=== PATIENT | male | born 1945 | race Caucasian/White ===

== ENCOUNTER 2016-12-03 07:56 | Observation (INO) | payer OTHER ==
--- NOTE | 2016-12-03 09:05 | EDPHY ---
H & P Time Seen by Provider: 12/03/16 09:04 HPI/ROS: Chief complaint. Abdominal pain HPI. 71-year-old male presents emergency department with right lower quadrant abdominal pain that began last night. The patient was sleeping and had a dream that he was able to take objects in and out of his abdomen and then woke up with generalized abdominal discomfort that is now in the right lower quadrant. It hurts to move. Nausea but no vomiting. No diarrhea. No urinary symptoms though decreased urination this morning. No significant previous abdominal problems and no previous abdominal surgery. Penis and testicles are normal. No chest discomfort or trouble breathing. No fever ROS Constitutional. no fever/chills, no weakness Eyes. no problems with vision ENT. no sore throat, no nasal drainage Cardiovascular. no chest pain Respiratory. no shortness of breath, no cough Abdominal. Right lower quadrant abdominal pain with nausea . Decreased urination MS. no calf pain/swelling, no neck/back pain, no joint pain Skin. no rash Lymph. no swollen glands Neuro. no headache, no dizziness, no difficulty walking or with speech Past Medical/Surgical History: Past medical history significant for dyslipidemia, cardiac arrest, valve replacement Social History: , nonsmoker, no alcohol Smoking Status: Former smoker Physical Exam: General Appearance: Alert well-developed male moderate distress vital signs are stable Eyes: Pupils equal and round no pallor or injection. ENT, Mouth: Mucous membranes are moist. Respiratory: There are no retractions, lungs are clear to auscultation. Cardiovascular: Regular rate and rhythm. Gastrointestinal: Abdomen is soft but tender at McBurney's point in the right lower quadrant. No flank tenderness. Normal bowel sounds. No masses Neurological: Awake and alert, sensory and motor exams grossly normal. Skin: Warm and dry, no rashes. Musculoskeletal: Neck is supple nontender. Extremities symmetrical, full range of motion. Psychiatric: Patient is oriented X 3, there is no agitation. Constitutional: Initial Vital Signs Temperature (C) 36.3 C 12/03/16 07:59 Heart Rate 49 L 12/03/16 07:59 Respiratory Rate 16 12/03/16 07:59 Blood Pressure 158/92 H 12/03/16 07:59 O2 Sat (%) 97 12/03/16 07:59 O2 Delivery Mode Room Air Allergies/Adverse Reactions: No Known Allergies Allergy (Unverified 12/03/16 08:02) Home Medications: Medication Instructions Recorded Amoxicillin 2,000 mg PO AD PRN 12/03/16 Atorvastatin Calcium [Lipitor 10 10 mg PO HS 12/03/16 mg (*)] Herbals/Supplements -Info Only 1 each PO DAILY 12/03/16 Medical Decision Making - Diagnostics Imaging Results: Imaging Impressions Abdomen CT 12/03/16 09:19 Impression: 1. 6.6 mm obstructing calculus in the proximal right ureter with moderate hydronephrosis. Significant perinephric stranding around the right kidney suggesting there may have been a pelvocaliceal rupture. 2. Nonobstructive nephrolithiasis in both kidneys. Exophytic simple renal cortical cyst measuring 8.5 cm in the superior pole left kidney. 3. Possible cholelithiasis without inflammatory change around the gallbladder. 4. Two hyperenhancing lesions in the right lobe of the liver. These are nonspecific and warrant further evaluation with multiphasic CT or MRI postcontrast evaluation. 5. Large nodular prostate with a nonspecific appearance. Correlate to clinical exam and PSA. 6. Bilateral spondylolysis at L5 with grade 1 to grade 2 anterior spondylolisthesis of L5 on S1. Other multilevel degenerative change. 7. Evidence of atherosclerotic disease in the abdominal aorta without evidence for aneurysmal dilatation. Results called and discussed with Dr. Vic Madera on December 03, 2016 at 10:[address] abdomen and pelvis shows a 6.6 mm calculus at the proximal right ureter with moderate hydronephrosis and perinephric stranding. Procedures: IV normal saline with initial target 2 L. Dilaudid for pain. Zofran for nausea ED Course/Re-evaluation: Re-evaluation 10:50 a.m.--patient is improved after pain medication Patient and I discussed imaging and lab results. We discussed treatment plan including criteria for return importance of follow-up and further evaluation. He expresses understanding and agreement I consulted and discussed the case with , hospitalist, who agrees to the admission Differential Diagnosis: I considered acute appendicitis, diverticulitis, urinary tract infection including pyelonephritis, kidney stone - Data Points Laboratory Results: Laboratory Results 12/03/16 08:28 12/03/16 08:28 12/03/16 12/03/16 12/03/16 08:28 08:28 08:28 WBC 8.14 10^3/uL 10^3/uL (3.80-9.50) RBC 4.59 10^6/uL 10^6/uL (4.40-6.38) Hgb 14.5 g/dL g/dL (13.7-17.5) Hct 43.4 % % (40.0-51.0) MCV 94.6 fL fL (81.5-99.8) MCH 31.6 pg pg (27.9-34.1) MCHC 33.4 g/dL g/dL (32.4-36.7) RDW 13.1 % % (11.5-15.2) Plt Count 187 10^3/uL 10^3/uL (150-400) MPV 11.3 fL fL (8.7-11.7) Neut % (Auto) 63.3 % % (39.3-74.2) Lymph % (Auto) 28.0 % % (15.0-45.0) [place] % (Auto) 6.6 % % (4.5-13.0) Eos % (Auto) 1.0 % % (0.6-7.6) Baso % (Auto) 0.9 % % (0.3-1.7) Nucleat RBC Rel Count 0.0 % % (0.0-0.2) Absolute Neuts (auto) 5.15 10^3/uL 10^3/uL (1.70-6.50) Absolute Lymphs (auto) 2.28 10^3/uL 10^3/uL (1.00-3.00) Absolute Monos (auto) 0.54 10^3/uL 10^3/uL (0.30-0.80) Absolute Eos (auto) 0.08 10^3/uL 10^3/uL (0.03-0.40) Absolute Basos (auto) 0.07 10^3/uL 10^3/uL (0.02-0.10) Absolute Nucleated RBC 0.00 10^3/uL 10^3/uL (0-0.01) Immature Gran % 0.2 % % (0.0-1.1) Immature Gran # 0.02 10^3/uL 10^3/uL (0.00-0.10) PT 13.5 SEC SEC (12.0-15.0) INR 1.04 (0.83-1.16) APTT 26.8 SEC SEC (23.0-38.0) Sodium 143 mEq/L mEq/L (134-144) Potassium 3.6 mEq/L mEq/L (3.5-5.2) Chloride 106 mEq/L mEq/L (97-110) Carbon Dioxide 26 mEq/l mEq/l (22-31) Anion Gap 11 mEq/L mEq/L (8-16) BUN 14 mg/dL mg/dL (7-23) Creatinine 1.1 mg/dL mg/dL (0.7-1.3) Estimated GFR > 60 Glucose 110 mg/dL H mg/dL (70-100) Calcium 9.7 mg/dL mg/dL (8.5-10.4) Medications Given: Discontinued Medications Hydromorphone HCl (Dilaudid) 0.5 mg IVP EDNOW ONE Stop: 12/03/16 09:19 Last Admin: 12/03/16 09:26 Dose: 0.5 mg Sodium Chloride (Ns) 1,000 mls @ 0 mls/hr IV ONCE ONE PRN Reason: Wide Open Stop: 12/03/16 09:19 Last Admin: 12/03/16 09:26 Dose: 1,000 mls Sodium Chloride (Ns) 1,000 mls @ 0 mls/hr IV EDNOW ONE; Wide Open PRN Reason: Protocol Stop: 12/03/16 09:20 Last Admin: 12/03/16 09:59 Dose: Not Given Sodium Chloride (Ns) 1,000 mls @ 0 mls/hr IV EDNOW ONE; Wide Open PRN Reason: Protocol Stop: 12/03/16 09:20 Last Admin: 12/03/16 09:58 Dose: 1,000 mls Ketorolac Tromethamine (Toradol) 30 mg IVP EDNOW ONE Stop: 12/03/16 11:12 Last Admin: 12/03/16 11:25 Dose: 30 mg Ondansetron HCl (Zofran) 4 mg IVP EDNOW ONE Stop: 12/03/16 09:19 Last Admin: 12/03/16 09:27 Dose: 4 mg Tamsulosin HCl (Flomax) 0.4 mg PO EDNOW ONE Stop: 12/03/16 11:12 Last Admin: 12/03/16 11:25 Dose: 0.4 mg Departure - Departure Disposition: [facility] Inpatient Acute Clinical Impression: Renal colic on right side Condition: Fair
[2016-12-03] MEDS ORDERED: ONDANSETRON 4 MG/2 ML VIAL IVP ONE (09:18)
[2016-12-03] MEDS ORDERED: NS 1,000 ML IV ONE ×3 (09:18→09:19)
[2016-12-03] MEDS ORDERED: HYDROmorphONE/DILAUDID 1 MG/ML SYR IVP ONE (09:18)
[2016-12-03] MEDS ORDERED: ONDANSETRON 4 MG/2 ML VIAL ONE (09:23)
[2016-12-03 09:26] LABS: % IMMATURE GRANULYOCYTES 0.2 % (0.0-1.1); ABSOLUTE IMMATURE GRANULOCYTES 0.02 10^3/uL (0.00-0.10); ADD DIFF? NO; ADD MORPH? NO; ADD SCAN? NO; ATYPICAL LYMPHOCYTE FLAG 0 (0-99); FRAGMENT RBC FLAG 0 (0-99); HEMATOCRIT 43.4 % (40.0-51.0); HEMOGLOBIN 14.5 g/dL (13.7-17.5); LEFT SHIFT FLG 0 (0-99); LIPEMIA HEMOLYSIS FLAG 80 (0-99); MEAN CELL HEMOGLOBIN 31.6 pg (27.9-34.1); MEAN CELL HEMOGLOBIN CONCENTR. 33.4 g/dL (32.4-36.7); MEAN CELL VOLUME 94.6 fL (81.5-99.8); MEAN PLATELET VOLUME 11.3 fL (8.7-11.7); PLATELET CLUMPS FLAG 0 (0-99); PLATELET COUNT 187 10^3/uL (150-400); RED BLOOD CELL COUNT 4.59 10^6/uL (4.40-6.38); RED CELL DISTRIBUTION WIDTH 13.1 % (11.5-15.2)
[2016-12-03 09:30] LABS: ANION GAP 11 mEq/L (8-16); CALCIUM 9.7 mg/dL (8.5-10.4); CARBON DIOXIDE 26 mEq/l (22-31); CHLORIDE 106 mEq/L (97-110); CREATININE 1.1 mg/dL (0.7-1.3); GLOMERULAR FILTRATION RATE > 60; GLUCOSE 110 mg/dL (70-100); POTASSIUM 3.6 mEq/L (3.5-5.2); SODIUM 143 mEq/L (134-144)
[2016-12-03] MEDS ORDERED: IOPAMIDOL (ISOVUE-300) 100 ML BTL ONE (09:32)
[2016-12-03 10:47] LABS: INR 1.04 (0.83-1.16)
[2016-12-03 10:48] LABS: APTT 26.8 SEC (23.0-38.0)
[2016-12-03 10:49] LABS: PROTIME(PATIENT) 13.5 SEC (12.0-15.0)
[2016-12-03] MEDS ORDERED: KETOROLAC 30 MG/1 ML SDV IVP ONE (11:11)
[2016-12-03] MEDS ORDERED: TAMSULOSIN HCL 0.4 MG CAP PO ONE (11:11)
[2016-12-03] MEDS ORDERED: LORazepam 2 MG/ML INJ IVP PRN (11:23)
[2016-12-03] MEDS ORDERED: HYDROCODONE/APAP 5/325 TAB PO PRN (11:23)
[2016-12-03] MEDS ORDERED: HYDROmorphONE/DILAUDID 1 MG/ML SYR IVP PRN (11:23)
[2016-12-03] MEDS ORDERED: ACETAMINOPHEN 325 MG TAB PO PRN (11:23)
[2016-12-03] MEDS ORDERED: ONDANSETRON DISINTEGRATING 4 MG TAB PO PRN (11:23)
[2016-12-03] MEDS ORDERED: ONDANSETRON 4 MG/2 ML VIAL IVP PRN (11:23)
[2016-12-03] MEDS ORDERED: D5W 1/2 NS 1,000 ML IV SCH (11:30)
[2016-12-03 12:08] VITALS: TEMP 97.5
[2016-12-03 15:41] LABS: COLOR YELLOW; LEUKOCYTE ESTERASE,URINE NEGATIVE (NEGATIVE); NITRITE,URINE NEGATIVE (NEGATIVE)
[2016-12-03 15:49] LABS: BACTERIA TRACE /hpf (NONE SEEN); MUCUS TRACE /lpf (NONE-1+); RBC,URINE 50-182 /hpf (0-3)
[2016-12-03 16:37] VITALS: BP 94/53; PULSE 47; RESP 16; O2SAT 98
--- NOTE | 2016-12-03 16:37 | PDGENHP ---
History and Physical - Chief Complaint abdominal pain - History of Present Illness Woke up this AM with abd/flank pain. No hx kidney stones. No f/v/d. Was feeling well prior to admission and had recently seen PCP. Denies f/v/d/cp/sob currently. Says pain much improved, last pain med given in ER several hours ago. History Information - Allergies/Home Medication List Allergies/Adverse Reactions: No Known Allergies Allergy (Unverified 12/03/16 08:02) Home Medications: Amoxicillin 2,000 mg PO AD PRN 12/03/16 [Last Taken Unknown] Atorvastatin Calcium [Lipitor 10 mg (*)] 10 mg PO HS 12/03/16 [Last Taken ] Herbals/Supplements -Info Only 1 each PO DAILY 12/03/16 [Last Taken Unknown] I have personally reviewed and updated: medical history, social history, surgical history Past Medical History: artificial heart valve- bovine (he thinks aortic) - Past Medical History hyperlipidemia (just started meds last week) - Surgical History Additional surgical history: bovine heart valve - Social History Smoking Status: Former smoker Alcohol Use: Other (prev) Drug Use: None Additional social history: 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), moved to [place] to be nearer to 's parents Review of Systems ROS: 2-9 pt reviewed & negative except for what was stated in HPI & below Physical Exam Temp Pulse Resp BP Pulse Ox 97.5 F 50 L 15 109/61 96 12/03/16 12:07 12/03/16 12:07 12/03/16 12:07 12/03/16 12:07 12/03/16 12:07 Constitutional: no apparent distress, appears nourished, not in pain Eyes: PERRL, anicteric sclera, EOMI Ears, Nose, Mouth, Throat: moist mucous membranes, hearing normal, no oral mucosal ulcers Cardiovascular: regular rate and rhythym, systolic murmur (2/6), No edema Respiratory: no respiratory distress, no rales or rhonchi, clear to auscultation Gastrointestinal: normoactive bowel sounds, soft, non-tender abdomen, no palpable masses, other (no CVA tenderness), No guarding, No rebound Skin: warm, normal color, No mottled Musculoskeletal: full muscle strength, no muscle tenderness Neurologic: sensation intact bilaterally, CN II-XII Intact Psychiatric: interacting appropriately, not anxious, not encephalopathic, thought process linear Lab Data & Imaging Review 12/03/16 08:28 12/03/16 08:28 WBC 8.14 10^3/uL (3.80-9.50) 12/03/16 08:28 RBC 4.59 10^6/uL (4.40-6.38) 12/03/16 08:28 Hgb 14.5 g/dL (13.7-17.5) 12/03/16 08:28 Hct 43.4 % (40.0-51.0) 12/03/16 08:28 MCV 94.6 fL (81.5-99.8) 12/03/16 08:28 MCH 31.6 pg (27.9-34.1) 12/03/16 08:28 MCHC 33.4 g/dL (32.4-36.7) 12/03/16 08:28 RDW 13.1 % (11.5-15.2) 12/03/16 08:28 Plt Count 187 10^3/uL (150-400) 12/03/16 08:28 MPV 11.3 fL (8.7-11.7) 12/03/16 08:28 Neut % (Auto) 63.3 % (39.3-74.2) 12/03/16 08:28 Lymph % (Auto) 28.0 % (15.0-45.0) 12/03/16 08:28 [place] % (Auto) 6.6 % (4.5-13.0) 12/03/16 08:28 Eos % (Auto) 1.0 % (0.6-7.6) 12/03/16 08:28 Baso % (Auto) 0.9 % (0.3-1.7) 12/03/16 08:28 Nucleat RBC Rel Count 0.0 % (0.0-0.2) 12/03/16 08:28 Absolute Neuts (auto) 5.15 10^3/uL (1.70-6.50) 12/03/16 08:28 Absolute Lymphs (auto) 2.28 10^3/uL (1.00-3.00) 12/03/16 08:28 Absolute Monos (auto) 0.54 10^3/uL (0.30-0.80) 12/03/16 08:28 Absolute Eos (auto) 0.08 10^3/uL (0.03-0.40) 12/03/16 08:28 Absolute Basos (auto) 0.07 10^3/uL (0.02-0.10) 12/03/16 08:28 Absolute Nucleated RBC 0.00 10^3/uL (0-0.01) 12/03/16 08:28 Immature Gran % 0.2 % (0.0-1.1) 12/03/16 08:28 Immature Gran # 0.02 10^3/uL (0.00-0.10) 12/03/16 08:28 PT 13.5 SEC (12.0-15.0) 12/03/16 08:28 INR 1.04 (0.83-1.16) 12/03/16 08:28 APTT 26.8 SEC (23.0-38.0) 12/03/16 08:28 Sodium 143 mEq/L (134-144) 12/03/16 08:28 Potassium 3.6 mEq/L (3.5-5.2) 12/03/16 08:28 Chloride 106 mEq/L (97-110) 12/03/16 08:28 Carbon Dioxide 26 mEq/l (22-31) 12/03/16 08:28 Anion Gap 11 mEq/L (8-16) 12/03/16 08:28 BUN 14 mg/dL (7-23) 12/03/16 08:28 Creatinine 1.1 mg/dL (0.7-1.3) 12/03/16 08:28 Estimated GFR > 60 12/03/16 08:28 Glucose 110 mg/dL (70-100) H 12/03/16 08:28 Calcium 9.7 mg/dL (8.5-10.4) 12/03/16 08:28 Urine Color YELLOW 12/03/16 15:30 Urine Appearance HAZY 12/03/16 15:30 Urine pH 5.0 (5.0-7.5) 12/03/16 15:30 Ur Specific [place] > 1.035 (1.002-1.030) H 12/03/16 15:30 Urine Protein NEGATIVE (NEGATIVE) 12/03/16 15:30 Urine Ketones TRACE (NEGATIVE) H 12/03/16 15:30 Urine Blood 3+ (NEGATIVE) H 12/03/16 15:30 Urine Nitrate NEGATIVE (NEGATIVE) 12/03/16 15:30 Urine Bilirubin NEGATIVE (NEGATIVE) 12/03/16 15:30 Urine Urobilinogen NEGATIVE EU (0.2-1.0) 12/03/16 15:30 Ur Leukocyte Esterase NEGATIVE (NEGATIVE) 12/03/16 15:30 Urine RBC 50-182 /hpf (0-3) H 12/03/16 15:30 Urine WBC 10-15 /hpf (0-3) H 12/03/16 15:30 Ur Epithelial Cells NONE SEEN /lpf (NONE-1+) 12/03/16 15:30 Urine Bacteria TRACE /hpf (NONE SEEN) H 12/03/16 15:30 Urine Mucus TRACE /lpf (NONE-1+) 12/03/16 15:30 Urine Glucose NEGATIVE (NEGATIVE) 12/03/16 15:30 Visualized and Interpreted Chest x-ray results: Yes Assessment & Plan Assessment: 1. Renal colic on right side (Acute) -6.6 mm obstructing stone, but now asymptomatic -suspect passed -if pain OK, ambulates, eats will dc home to FU with Jona Ayoub/Mitesh/Chandan as o/p -continue flomax, IVFs -strain urine -Discussed with Dr Hawley informally 2. Enlarged nodular prostate noted on CT scan -last PSA nl 2014 added to labwork here -can't recall last SYLWIA, suggest eval with Dr Hawley as o/p (discussed with Dr Hawley informally) 3. Liver abnl noted on CT scan -gave him copy of report and revwd results/need for FU scan -FU with PCP to eval/work up as o/p 4. hyperlipidemia -continue statin 5. Hx bovine valve replacement 6. Advanced directives -says 'has some paperwork somewhere' but not sure what it says? -for now is FULL CODE< but I encouraged him to review this with his PCP and family and complete MOST form with wishes Dispo- possible home later today PCP Jona Sagastume and Mega DVT prophy-lovenox
[2016-12-03] MEDS ORDERED: TAMSULOSIN HCL 0.4 MG CAP PO SCH (16:45)
[2016-12-03] MEDS ORDERED: ATORVASTATIN CALCIUM 10 MG TAB PO SCH (21:00)
[2016-12-04] MEDS ORDERED: TAMSULOSIN HCL 0.4 MG CAP PO SCH (09:00)
[2016-12-04] MEDS ORDERED: ENOXAPARIN 40 MG/0.4 ML SYR SC SCH (09:00)
--- NOTE | 2016-12-05 17:37 | GDS ---
[f rep st] DISCHARGE SUMMARY SERVICE: [facility] Hospitalists. HISTORY AND PHYSICAL: Please see previously entered H and P by myself. ADMISSION DIAGNOSES: Obstructing nephrolithiasis, right side; enlarge nodular prostate noted on CT scan; liver abnormality noted on CT scan; hyperlipidemia; history of bovine valve replacement. DISCHARGE DIAGNOSES: Obstructing nephrolithiasis, right side, resolved; enlarge nodular prostate no aimee on CT scan; liver abnormality noted on CT scan; hyperlipidemia; history of bovine valve replacem ent. HOSPITAL COURSE: By problem list. 1. Acute right nephrolithiasis with obstruction. CT scan was done in the emergency department, glo gonzalez showed a 6.6 mm obstructing stone. He was given IV pain medications and IV fluids. He was admit aimee to the floor for observation. Within a few hours of admission, he was pain-free and no longer r equired any pain medications at all. His urine was being strained, but no stone was noted. He is g oing to be discharged home to follow up with his primary care providers, Dr. Ayoub/Mitesh, and also urologist, Dr. Hawley, as an outpatient. He should continue on Flomax and push fluids. A small pre scription for pain medication was given. Of note, he did have several nonobstructing stones noted b ilaterally on his CT scan and should discuss this with his care team as an outpatient. 2. Enlarged nodular prostate noted on CT scan. I did discuss this finding with him, and a copy of the report was given to him. A PSA was done last in 2014, but I repeated it while he was in the [facility], and it was slightly elevated at 4.13. Recommend that he seek further evaluation with Dr. Jones gonzalez as an outpatient, to which he is agreeable. 3. Abnormal liver lesions noted on CT scan. These are not well described on CT scan, and the radio logist's recommendation was for further imaging. Again, have given him a copy of this report and re viewed need for repeat imaging. He agrees to follow up with his primary provider regarding this. 4. Hyperlipidemia. Continue his home medication. 5. History of bovine valve replacement. Takes amoxicillin prophylaxis with procedures. DISCHARGE INSTRUCTIONS: I have advised him to increase fluids and watch urine output. He can fito nue to strain urine at home and should bring in any stone for evaluation. I have encouraged him to discuss advanced directives and a MOLST form with his primary care provider, as he is not sure what his legal paperwork status is. DISCHARGE MEDICATIONS: Continue routine home meds with the addition of Flomax daily. Small prescri ption of pain medication was given, but I have encouraged him to come back to the ER immediately if he has any pain similar to what he experienced today prior to coming to the emergency department. Copy requested to: Dr. Ayoub /[id number]/MODL
== END 2016-12-03 19:45 | disposition home or self-care (01) ==
LOC: INTOOBSV 11:11 → F1N 12:19
PROVIDERS: ADMIT Family Medicine; ATTEND Family Medicine
DX: N13.2 Hydronephrosis with renal and ureteral calculous obstruction (principal); K76.9 Liver disease, unspecified; N40.2 Nodular prostate without lower urinary tract symptoms; E78.5 Hyperlipidemia, unspecified; M43.07 Spondylolysis, lumbosacral region; I25.10 Atherosclerotic heart disease of native coronary artery without angina pectoris; Z95.2 Presence of prosthetic heart valve; Z86.74 Personal history of sudden cardiac arrest; Z87.891 Personal history of nicotine dependence
CPT/HCPCS: 74177; 96361; 96374; 96375; 99285; J1170; J1885; J2405; Q9967; G0103

== ENCOUNTER → 2016-12-09 | Outpatient (CLI) | payer OTHER | LOC: BMCIMAGING 09:24 | PROVIDERS: ATTEND Urology | DX: N20.1 Calculus of ureter (principal); N20.0 Calculus of kidney; I87.2 Venous insufficiency (chronic) (peripheral); M41.86 Other forms of scoliosis, lumbar region ==

== ENCOUNTER → 2016-12-24 | Outpatient (CLI) | payer OTHER | LOC: BMCIMAGING 09:57 | PROVIDERS: ATTEND Urology | DX: N20.1 Calculus of ureter (principal); N20.0 Calculus of kidney ==

== ENCOUNTER → 2017-04-27 | Outpatient (CLI) | payer OTHER ==
[~2017-04-27] MED LIST: GADOBUTROL 10 ML VIAL IVP ONE
== END ==
LOC: FIMAGING 10:01
PROVIDERS: ATTEND Psychiatry & Neurology Neurology
DX: G31.9 Degenerative disease of nervous system, unspecified (principal)
CPT/HCPCS: 70553; A9585

== ENCOUNTER → 2017-05-27 | Outpatient (CLI) | payer OTHER ==
[~2017-05-27] MED LIST changes: -GADOBUTROL 10 ML VIAL IVP ONE; +IOPAMIDOL (ISOVUE 370) 100 ML BTL IV ONE
== END ==
LOC: FIMAGING 11:18
PROVIDERS: ATTEND Psychiatry & Neurology Neurology
DX: Z13.6 Encounter for screening for cardiovascular disorders (principal)
CPT/HCPCS: 70498; Q9967

== ENCOUNTER 2017-05-29 14:52 | Inpatient (IN) | payer OTHER ==
--- NOTE | 2017-05-29 15:23 | EDPHY ---
H & P Time Seen by Provider: 05/29/17 15:05 HPI/ROS: Chief complaint. Abdominal pain HPI. 71-year-old male presents emergency department left lower quadrant abdominal pain that began this morning. It was associated with nausea and vomiting. Denies urinary symptoms. Pain is quite constant without radiation. He can't find a comfortable position. His pain is not worse with movement. No fever. Similar symptoms previously with kidney stone. No chest discomfort or trouble breathing. He reports penis and testicles are otherwise normal ROS Constitutional. no fever/chills, no weakness Eyes. no problems with vision ENT. no sore throat, no nasal drainage Cardiovascular. no chest pain Respiratory. no shortness of breath, no cough Abdominal. Left lower quadrant abdominal pain with nausea and vomiting. . no problems urinating MS. no calf pain/swelling, no neck/back pain, no joint pain Skin. no rash Lymph. no swollen glands Neuro. no headache, no dizziness, no difficulty walking or with speech Past Medical/Surgical History: Past medical history is significant for dyslipidemia, cardiac arrest, valve replacement, kidney stones, tonsillectomy Social History: , nonsmoker, no alcohol Smoking Status: Former smoker Physical Exam: General Appearance: Alert well-developed male moderate distress vital signs are stable Eyes: Pupils equal and round no pallor or injection. ENT, Mouth: Mucous membranes are moist. Respiratory: There are no retractions, lungs are clear to auscultation. Cardiovascular: Regular rate and rhythm. Gastrointestinal: Abdomen is soft and nontender, no masses, bowel sounds normal. Patient shows me left lower quadrant abdominal tenderness but it is not worse with palpation Neurological: Awake and alert, sensory and motor exams grossly normal. Skin: Warm and dry, no rashes. Musculoskeletal: Neck is supple nontender. Extremities symmetrical, full range of motion. Psychiatric: Patient is oriented X 3, there is no agitation. Constitutional: Initial Vital Signs Temperature (C) 36.5 C 05/29/17 14:55 Heart Rate 47 L 05/29/17 14:55 Respiratory Rate 18 05/29/17 14:55 O2 Sat (%) 97 05/29/17 14:55 O2 Delivery Mode Nasal Cannula O2 (L/minute) 2 Allergies/Adverse Reactions: No Known Allergies Allergy (Verified 05/29/17 14:54) Home Medications: Medication Instructions Recorded Amoxicillin 2,000 mg PO AD PRN 12/03/16 Atorvastatin Calcium [Lipitor 10 10 mg PO HS 12/03/16 mg (*)] Herbals/Supplements -Info Only 1 each PO DAILY 12/03/16 Hydrocodone/APAP 5/325 [[place] 1 - 2 tab PO Q4HRS PRN #20 tab 12/03/16 5/325 (*)] Tamsulosin HCl [Flomax 0.4 MG (*)] 0.4 mg PO DAILY #5 cap 12/03/16 Medical Decision Making - Diagnostics Imaging Results: Imaging Impressions Abdomen/Pelvis CT 05/29/17 15:38 Impression: 1. 8 mm proximal left ureteral stone with mild to moderate obstructive uropathy with prominent perinephric and periureteric stranding suggesting forniceal rupture. 2. Bilateral nephrolithiasis. 3. Sigmoid colon extending into a nonobstructed left inguinal hernia. 4. Cholelithiasis without evidence of cholecystitis. 5. Additional findings as above. Findings discussed with Dr. Vic Madera on 05/29/2017 at 16:11. Attention: This CT examination is specifically designed to evaluate patients who are clinically suspected of having acute obstructive uropathy. This examination does not use radiographic contrast, and as such, provides only a limited evaluation of the abdomen, pelvis and retroperitoneum. If there is further clinical suspicion for pathological conditions other than obstructive uropathy, a complete CT evaluation of the abdomen and pelvis utilizing intravenous and oral contrast should be considered. Noncontrast CT abdomen and pelvis shows an 8 mm proximal left ureteral stone with [id number] hydronephrosis and some perinephric stranding There is also a new left inguinal hernia Procedures: IV normal saline. Dilaudid and Toradol for pain. Cephalexin in the emergency department ED Course/Re-evaluation: Re-evaluation 4:30 p.m. and patient is much more comfortable Re-evaluation 5:05 p.m.. Patient and I discussed imaging and lab results. We discussed treatment plan including criteria for return importance of follow-up and further evaluation. He expresses understanding and agreement. I have discussed the case with Dr. Blunt for Urology. He will see The patient in consult I discussed the case with Dr. michelle RAYGOZA, hospitalist who agrees to the admission I also consulted and discussed the case with Dr. ignacio bergeron irrigation district manager for Dr. dietrich who asked me to call Dr. Blunt as well I also checked the patient for his left inguinal hernia any is a small easily reducible left inguinal hernia Differential Diagnosis: I considered kidney stone, urinary tract infection. - Data Points Laboratory Results: Laboratory Results 05/29/17 15:25 05/29/17 15:25 05/29/17 05/29/17 05/29/17 16:35 15:25 15:25 WBC 13.46 10^3/uL H 10^3/uL (3.80-9.50) RBC 4.49 10^6/uL 10^6/uL (4.40-6.38) Hgb 14.3 g/dL g/dL (13.7-17.5) Hct 42.5 % % (40.0-51.0) MCV 94.7 fL fL (81.5-99.8) MCH 31.8 pg pg (27.9-34.1) MCHC 33.6 g/dL g/dL (32.4-36.7) RDW 13.0 % % (11.5-15.2) Plt Count 209 10^3/uL 10^3/uL (150-400) MPV 10.4 fL fL (8.7-11.7) Neut % (Auto) 89.6 % H % (39.3-74.2) Lymph % (Auto) 6.0 % L % (15.0-45.0) [place] % (Auto) 3.7 % L % (4.5-13.0) Eos % (Auto) 0.1 % L % (0.6-7.6) Baso % (Auto) 0.3 % % (0.3-1.7) Nucleat RBC Rel Count 0.0 % % (0.0-0.2) Absolute Neuts (auto) 12.06 10^3/uL H 10^3/uL (1.70-6.50) Absolute Lymphs (auto) 0.81 10^3/uL L 10^3/uL (1.00-3.00) Absolute Monos (auto) 0.50 10^3/uL 10^3/uL (0.30-0.80) Absolute Eos (auto) 0.01 10^3/uL L 10^3/uL (0.03-0.40) Absolute Basos (auto) 0.04 10^3/uL 10^3/uL (0.02-0.10) Absolute Nucleated RBC 0.00 10^3/uL 10^3/uL (0-0.01) Immature Gran % 0.3 % % (0.0-1.1) Immature Gran # 0.04 10^3/uL 10^3/uL (0.00-0.10) Sodium 143 mEq/L mEq/L (135-145) Potassium 4.1 mEq/L mEq/L (3.5-5.2) Chloride 104 mEq/L mEq/L (97-110) Carbon Dioxide 24 mEq/l mEq/l (22-31) Anion Gap 15 mEq/L mEq/L (8-16) BUN 18 mg/dL mg/dL (7-23) Creatinine 1.1 mg/dL mg/dL (0.7-1.3) Estimated GFR > 60 Glucose 132 mg/dL H mg/dL (70-100) Calcium 9.6 mg/dL mg/dL (8.5-10.4) Urine Color YELLOW Urine Appearance HAZY Urine pH 6.0 (5.0-7.5) Ur Specific [place] 1.021 (1.002-1.030) Urine Protein 1+ H (NEGATIVE) Urine Ketones 1+ H (NEGATIVE) Urine Blood 3+ H (NEGATIVE) Urine Nitrate NEGATIVE (NEGATIVE) Urine Bilirubin NEGATIVE (NEGATIVE) Urine Urobilinogen NEGATIVE EU EU (0.2-1.0) Ur Leukocyte Esterase 2+ H (NEGATIVE) Urine RBC 50-182 /hpf H /hpf (0-3) Urine WBC 25-50 /hpf H /hpf (0-3) Ur Epithelial Cells NONE SEEN /lpf /lpf (NONE-1+) Urine Mucus TRACE /lpf /lpf (NONE-1+) Urine Glucose NEGATIVE (NEGATIVE) Medications Given: Discontinued Medications Hydromorphone HCl (Dilaudid) 0.5 mg IVP EDNOW ONE Stop: 05/29/17 15:38 Last Admin: 05/29/17 15:53 Dose: 0.5 mg Sodium Chloride (Ns) 1,000 mls @ 0 mls/hr IV EDNOW ONE; Wide Open PRN Reason: Protocol Stop: 05/29/17 15:38 Last Admin: 05/29/17 15:53 Dose: 1,000 mls Ketorolac Tromethamine (Toradol) 15 mg IVP EDNOW ONE Stop: 05/29/17 15:38 Last Admin: 05/29/17 15:53 Dose: 15 mg Ondansetron HCl (Zofran) 4 mg IVP EDNOW ONE Stop: 05/29/17 15:38 Last Admin: 05/29/17 15:53 Dose: 4 mg Departure - Departure Disposition: [facility] Inpatient Acute Clinical Impression: Calculus of left kidney Condition: Good Referrals: Reji Hawley MD [Primary Care Provider] - As per Instructions
[2017-05-29] MEDS ORDERED: HYDROmorphONE/DILAUDID 1 MG/ML INJ IVP ONE (15:37)
[2017-05-29] MEDS ORDERED: KETOROLAC 30 MG/1 ML SDV IVP ONE (15:37)
[2017-05-29] MEDS ORDERED: ONDANSETRON 4 MG/2 ML VIAL IVP ONE (15:37)
[2017-05-29] MEDS ORDERED: NS 1,000 ML IV ONE (15:37)
[2017-05-29 15:49] LABS: PLATELET COUNT 209 10^3/uL (150-400)
[2017-05-29] MEDS ORDERED: TAMSULOSIN HCL 0.4 MG CAP PO ONE (18:09)
[2017-05-29] MEDS ORDERED: CEPHALEXIN 500 MG CAP PO ONE (18:09)
[2017-05-29] MEDS ORDERED: ONDANSETRON DISINTEGRATING 4 MG TAB PO PRN (18:18)
[2017-05-29] MEDS ORDERED: oxyCODONE IR 5 MG TAB PO PRN (18:18)
[2017-05-29] MEDS ORDERED: HYDROmorphONE/DILAUDID 1 MG/ML INJ IVP PRN (18:18)
[2017-05-29] MEDS ORDERED: ONDANSETRON 4 MG/2 ML VIAL IVP PRN (18:18)
[2017-05-29] MEDS ORDERED: KETOROLAC 15 MG/1 ML SDV IVP PRN (18:20)
--- NOTE | 2017-05-29 20:35 | PDCONSULT ---
Report Manager Note: Full dictated consult to follow. 8mm left proximal ureteral stone, hydronephrosis, non obstructing left renal stone, forniceal rupture. Plan for ureteroscopy, laser and stent. Tentatively scheduled for 11am tomorrow. Discussed risks, benefits, and alternatives with patient and he is agreeable. Continue rocephin. NPO after MN
--- NOTE | 2017-05-29 20:39 | PDGENHP ---
History and Physical - Chief Complaint LLQ abd pain - History of Present Illness 71-year-old male presents with left lower quadrant abdominal pain that began this morning. It was associated with nausea and vomiting. Denies urinary symptoms. Pain is quite constant without radiation. No fever. Similar symptoms previously with kidney stone. In the ER found to have 8mm proximal left ureteral stone, mild to moderate obstructive uropathy, ?forniceal rupture. Dr. Lei Blunt consulted, plan is for surgical mgmt tomorrow. Still with significant discomfort, but better since getting IV meds found to have Leukocytosis and urine c/w likely infection. Start on Keflex No chest discomfort or trouble breathing. Afebrile Past Medical/Surgical History: Past medical history is significant for dyslipidemia, cardiac arrest, valve replacement, kidney stones, tonsillectomy Social History: , nonsmoker, no alcohol FMHx: non contributory Data: labs reviewed WBC: 13.[address] Abd/Pelvis: per above, also bilateral nephrolithiasis History Information - Allergies/Home Medication List Allergies/Adverse Reactions: No Known Allergies Allergy (Verified 05/29/17 14:54) Home Medications: Amoxicillin 2,000 mg PO AD PRN 12/03/16 [Last Taken Unknown] Atorvastatin Calcium [Lipitor 10 mg (*)] 10 mg PO HS 12/03/16 [Last Taken ] Herbals/Supplements -Info Only 1 each PO DAILY 12/03/16 [Last Taken Unknown] I have personally reviewed and updated: medical history, social history Past Medical History: artificial heart valve- bovine (he thinks aortic) - Past Medical History hyperlipidemia (just started meds last week) - Surgical History Additional surgical history: bovine heart valve - Social History Smoking Status: Former smoker Additional social history: 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), moved to [place] to be nearer to 's parents Review of Systems Review of Systems: ROS: 10pt was reviewed & negative except for what was stated in HPI & below Physical Exam Physical Exam: Temp Pulse Resp BP Pulse Ox 36.6 C 50 L 18 114/61 97 05/29/17 20:13 05/29/17 20:13 05/29/17 20:13 05/29/17 20:13 05/29/17 20:13 O2 (L/minute) 2 Constitutional: no apparent distress, appears nourished Eyes: PERRL, EOMI Ears, Nose, Mouth, Throat: moist mucous membranes, hearing normal, ears appear normal Cardiovascular: regular rate and rhythym, No edema Respiratory: no respiratory distress, no rales or rhonchi Gastrointestinal: normoactive bowel sounds, tenderness (llq tenderness) Skin: warm Neurologic: AAOx3 Psychiatric: interacting appropriately, not anxious, not encephalopathic, thought process linear Lymph, Heme, Immunologic: No petechiae Lab Data & Imaging Review 05/29/17 15:25 05/29/17 15:25 WBC 13.46 10^3/uL (3.80-9.50) H 05/29/17 15:25 RBC 4.49 10^6/uL (4.40-6.38) 05/29/17 15:25 Hgb 14.3 g/dL (13.7-17.5) 05/29/17 15:25 Hct 42.5 % (40.0-51.0) 05/29/17 15:25 MCV 94.7 fL (81.5-99.8) 05/29/17 15:25 MCH 31.8 pg (27.9-34.1) 05/29/17 15:25 MCHC 33.6 g/dL (32.4-36.7) 05/29/17 15:25 RDW 13.0 % (11.5-15.2) 05/29/17 15:25 Plt Count 209 10^3/uL (150-400) 05/29/17 15:25 MPV 10.4 fL (8.7-11.7) 05/29/17 15:25 Neut % (Auto) 89.6 % (39.3-74.2) H 05/29/17 15:25 Lymph % (Auto) 6.0 % (15.0-45.0) L 05/29/17 15:25 Sharp % (Auto) 3.7 % (4.5-13.0) L 05/29/17 15:25 Eos % (Auto) 0.1 % (0.6-7.6) L 05/29/17 15:25 Baso % (Auto) 0.3 % (0.3-1.7) 05/29/17 15:25 Nucleat RBC Rel Count 0.0 % (0.0-0.2) 05/29/17 15:25 Absolute Neuts (auto) 12.06 10^3/uL (1.70-6.50) H 05/29/17 15:25 Absolute Lymphs (auto) 0.81 10^3/uL (1.00-3.00) L 05/29/17 15:25 Absolute Monos (auto) 0.50 10^3/uL (0.30-0.80) 05/29/17 15:25 Absolute Eos (auto) 0.01 10^3/uL (0.03-0.40) L 05/29/17 15:25 Absolute Basos (auto) 0.04 10^3/uL (0.02-0.10) 05/29/17 15:25 Absolute Nucleated RBC 0.00 10^3/uL (0-0.01) 05/29/17 15:25 Immature Gran % 0.3 % (0.0-1.1) 05/29/17 15:25 Immature Gran # 0.04 10^3/uL (0.00-0.10) 05/29/17 15:25 Sodium 143 mEq/L (135-145) 05/29/17 15:25 Potassium 4.1 mEq/L (3.5-5.2) 05/29/17 15:25 Chloride 104 mEq/L (97-110) 05/29/17 15:25 Carbon Dioxide 24 mEq/l (22-31) 05/29/17 15:25 Anion Gap 15 mEq/L (8-16) 05/29/17 15:25 BUN 18 mg/dL (7-23) 05/29/17 15:25 Creatinine 1.1 mg/dL (0.7-1.3) 05/29/17 15:25 Estimated GFR > 60 05/29/17 15:25 Glucose 132 mg/dL (70-100) H 05/29/17 15:25 Calcium 9.6 mg/dL (8.5-10.4) 05/29/17 15:25 Urine Color YELLOW 05/29/17 16:35 Urine Appearance HAZY 05/29/17 16:35 Urine pH 6.0 (5.0-7.5) 05/29/17 16:35 Ur Specific Perry 1.021 (1.002-1.030) 05/29/17 16:35 Urine Protein 1+ (NEGATIVE) H 05/29/17 16:35 Urine Ketones 1+ (NEGATIVE) H 05/29/17 16:35 Urine Blood 3+ (NEGATIVE) H 05/29/17 16:35 Urine Nitrate NEGATIVE (NEGATIVE) 05/29/17 16:35 Urine Bilirubin NEGATIVE (NEGATIVE) 05/29/17 16:35 Urine Urobilinogen NEGATIVE EU (0.2-1.0) 05/29/17 16:35 Ur Leukocyte Esterase 2+ (NEGATIVE) H 05/29/17 16:35 Urine RBC 50-182 /hpf (0-3) H 05/29/17 16:35 Urine WBC 25-50 /hpf (0-3) H 05/29/17 16:35 Ur Epithelial Cells NONE SEEN /lpf (NONE-1+) 05/29/17 16:35 Urine Mucus TRACE /lpf (NONE-1+) 05/29/17 16:35 Urine Glucose NEGATIVE (NEGATIVE) 05/29/17 16:35 Assessment & Plan Assessment: #Acute Calculus of left kidney #Obstructive uropathy #acute UTI #Leukocytosis #acute pain Plan: -observation -will change abx to Rocephin, await cultures -Dr. Blunt to see, planned surgical mgmt tomorrow -Pain mgmt -Tamsulosin -home meds as appopriate -SCD's -Full Code
[2017-05-29] MEDS: ATORVASTATIN CALCIUM 10 MG TAB PO SCH (22:27)
[2017-05-29] MEDS: NS 1,000 ML IV SCH (22:27)
[2017-05-30 05:11] LABS: PLATELET COUNT 184 10^3/uL (150-400)
[2017-05-30] MEDS ORDERED: Herbals/Supplements -Info Only PO SCH (09:00)
[2017-05-30] MEDS: TAMSULOSIN HCL 0.4 MG CAP PO SCH (09:38)
--- NOTE | 2017-05-30 09:53 | CPEKG ---
Heart Rate: 49 RR Interval: 1224 P-R Interval: 196 QRSD Interval: 106 QT Interval: 476 QTC Interval: 430 P [place]: 59 QRS [place]: 0 T Wave [place]: -18 EKG Severity - ABNORMAL ECG - EKG Impression: SINUS BRADYCARDIA EKG Impression: PROBABLE LEFT ATRIAL ABNORMALITY EKG Impression: ABNRM R PROG, CONSIDER ASMI OR LEAD PLACEMENT EKG Impression: BORDERLINE T ABNORMALITIES, INFERIOR LEADS Electronically Signed By: Fuentes Pacheco 30-May-2017 10:05:33
--- NOTE | 2017-05-30 10:36 | PDANEPAE ---
ANE History of Present Illness 71 year old male with left ureteral stone for ureteroscopy. ANE Past Medical History - Cardiovascular History Cardiovascular History Comment: History of Cardiac Arrest. History of Valve replacement - Pulmonary History Hx Oxygen in Use at Home: No Hx Sleep Apnea: No Sleep Apnea Screening Result - Last Documented: Positive - Endocrine History Hx Diabetes: No Hypothyroid: No Hyperthyroid: No Obesity: no - Renal History Hx Renal Disorders: Yes Renal History Comment: Renal stones - Liver History Hx Hepatic Disorders: No - Neurological & Psychiatric Hx Hx Neurological and Psychiatric Disorders: No - Cancer History Hx Cancer: No - Congenital Disorder History Hx Congenital Disorders: No - GI History GERD: no - Chronic Pain History Chronic Pain: No ANE Review of Systems Review of systems is: negative Review of Systems: - Exercise capacity Exercise capacity: >=4 METS ANE Patient History - Allergies Allergies/Adverse Reactions: No Known Allergies Allergy (Verified 05/29/17 14:54) - Home Medications Home medications: home medication list seen and reviewed Home Medications: Amoxicillin 2,000 mg PO AD PRN 12/03/16 [Last Taken Unknown] Atorvastatin Calcium [Lipitor 10 mg (*)] 10 mg PO HS 12/03/16 [Last Taken ] Herbals/Supplements -Info Only 1 each PO DAILY 12/03/16 [Last Taken Unknown] - NPO status NPO Status: no food or drink >8 hours NPO Since - Liquids (Date): 05/30/17 NPO Since - Liquids (Time): 00:00 NPO Since - Solids (Date): 05/30/17 NPO Since - Solids (Time): 00:00 - Anes Hx Anes Hx: no prior problems - Smoking Hx Smoking Status: Former smoker Marijuana use: No - Alcohol Use Alcohol Use: Rarely - Family Anes Hx Family Anes Hx: neg - N/A ANE Labs/Vital Signs - Labs Result Diagrams: 05/30/17 04:35 05/30/17 04:35 - Vital Signs Vital Signs: reviewed preoperatively; see RN documention for details Blood Pressure: 100/58 Heart Rate: 52 Respiratory Rate: 16 O2 Sat (%): 94 Height: 182.88 cm Weight: 76.4 kg ANE Physical Exam - Airway Neck exam: FROM Mallampati Score: Class 2 Mouth exam: normal dental/mouth exam - Pulmonary Pulmonary: no respiratory distress - Cardiovascular Cardiovascular: regular rate and rhythym - ASA Status ASA Status: III ANE Anesthesia Plan Anesthesia Plan: GA w LMA Total IV Anesthesia: No
[2017-05-30] MEDS ORDERED: LIDOCAINE 2% JELLY 20 ML (UROJECT) ONE (10:49)
[2017-05-30] MEDS ORDERED: IOPAMIDOL (ISOVUE-M 300) 15 ML VIAL ONE (10:49)
[2017-05-30] MEDS ORDERED: LR 1,000 ML IV ONE (10:53)
[2017-05-30] MEDS ORDERED: PROPOFOL 200 MG/20 ML VIAL ONE (11:10)
[2017-05-30] MEDS ORDERED: DEXAMETHASONE 4 MG/ML VIAL ONE (11:35)
[2017-05-30] MEDS ORDERED: ROCURONIUM 50 MG/5 ML VIAL ONE ×2 (11:35→22:35)
[2017-05-30] MEDS ORDERED: ONDANSETRON 4 MG/2 ML VIAL ONE (11:35)
--- NOTE | 2017-05-30 12:11 | GCON ---
[f rep st] CONSULTATION DATE OF CONSULTATION: 05/30/2017 REQUESTING PHYSICIAN: Dr. Vic Madera. REASON FOR REQUEST: Ureteral stone. HISTORY OF PRESENT ILLNESS: The patient is a very pleasant 71-year-old gentleman who has a history o f ureteral stones with prior spontaneous passage. He has been seen by Dr. Reji Hawley in the past, w pierce I am cross-covering for for the weekend. He had a one-day onset of severe left-sided flank pain associated with some nausea and vomiting. No fever. No hematuria. He came to the emergency room wh ere a CT scan was obtained, which demonstrated a left proximal ureteral stone measuring approximately 8 mm in maximum diameter, as well as a nonobstructing left renal stone. In addition, there was evid ence of forniceal rupture. The patient states that he last had a stone in mid-2016, which he passed spontaneously. He states he has not had prior metabolic evaluation. Currently he is feeling better, has been afebrile. PAST MEDICAL HISTORY: Includes valvular disease, myocardial infarction, hyperlipidemia, kidney stone s. PAST SURGICAL HISTORY: Includes valve replacement and tonsillectomy. SOCIAL HISTORY: The patient is . No tobacco, alcohol, or drug abuse. FAMILY HISTORY: Reviewed and is noncontributory. HOME MEDICATIONS: Reviewed and summarized in the chart. Of note, the patient is not on any current anticoagulation. HOSPITAL MEDICATIONS: Reviewed, and he is on routine Rocephin. REVIEW OF SYSTEMS: Obtained, and is otherwise negative. PHYSICAL EXAMINATION: VITAL SIGNS: His temperature is 36.4, blood pressure 109/67, heart rate 55. GENERAL: He is alert and oriented x4. No apparent distress. Appears younger than his stated age. HEENT: His head is normocephalic, atraumatic. Eyes, ears, nose, and throat are within normal limits . He has no increasing respiratory effort. HEART: Regular. ABDOMEN: Soft, nontender, nondistende d. He has some mild left CVA tenderness. EXTREMITIES: No clubbing, cyanosis, or edema. NEUROLOGIC : Nonfocal. RADIOGRAPHIC STUDIES: I personally reviewed his CT scan, report, and images. They are summarized as above. LABORATORY VALUES: Reviewed and summarized in the chart. Significant for, on admission, a white blo od cell count of 13.46. Creatinine 1.4 today. IMPRESSION: 1. Left flank pain due to left proximal ureteral stone. 2. Left proximal ureteral stone. 3. Left nonobstructing renal stone. 4. Forniceal rupture. 5. Hydronephrosis due to ureteral obstruction from ureteral stone. PLAN: Given the patient's forniceal rupture, the size and location of the stone, I recommend operati ve intervention. I have discussed potential risks, benefits, and alternatives with him, which includ e but are not limited to risks of anesthesia, discomfort, bleeding, infection, inability to fully bandar ak up the stone, need for ureteral stent placement, and associated stent symptoms. In addition, I coffey ve discussed the need for removal of the stent. The patient is established with Dr. Reji Hawley and will follow up with him as an outpatient for removal. I have stressed the importance of this followu p. The patient has expressed understanding. Thank you for allowing me to participate in his care. /[id number]/MODL
[2017-05-30] MEDS ORDERED: LR 500 ML IV PRN (13:02)
[2017-05-30] MEDS ORDERED: fentaNYL 100 MCG/2 ML INJ IVP PRN ×2 (13:02→15:52)
[2017-05-30] MEDS ORDERED: epHEDrine SULFATE 10 MG/ML SYR IVP PRN (13:02)
[2017-05-30] MEDS ORDERED: NALOXONE HCL 0.4 MG/ML INJ IVP PRN ×2 (13:02→15:52)
[2017-05-30] MEDS ORDERED: ONDANSETRON 4 MG/2 ML VIAL IVP PRN (13:02)
[2017-05-30] MEDS ORDERED: PHENYLEPHRINE HCL 100 MCG/ML SYR IVP PRN (13:02)
--- NOTE | 2017-05-30 13:04 | POSTANESTH ---
Post Anesthetic Evaluation Cardiovascular Status: Normal, Stable, Similar to Pre-Op Cond Respiratory Status: Normal, Stable, Similar to Pre-op Cond. Level of Consciousness/Mental Status: Can Participate in Eval, Alert and Oriented Pain Control: Adequate, Prn Tx Ordered Nausea/Vomiting Control: Adequate, Prn Tx Ordered Complications Possibly Related to Anesthesia: None Noted
--- NOTE | 2017-05-30 13:40 | POSTOPPROG ---
Post Op Note Date of Operation: 05/30/17 Surgeon: Giovanny Blunt Anesthesia: LMA Pre-op Diagnosis: left proximal ureteral stone Post-op Diagnosis: same Procedure: left ureteroscopy laser, attempted stent Findings: stone fractured but wire access to kidney lost. unable to place stent Inf/Abcess present in the surg proc area at time of surgery?: No EBL: Minimal (10ml) Complications: Unable to place stent due to wire access loss. Specimen(s): none
--- NOTE | 2017-05-30 15:44 | HOSPPROG ---
Hospitalist Progress Note Assessment/Plan: 71 yo admitted with flank pain. He was found to have an 8mm ureteral stone with hydronephrosis. # Ureteral stone. He underwent proceedure today for stone removal and post stone removal, Urology was unable to place a stent. * Continue inpatient stay * IR to attempt stent placement or possible nephrostomy tube. * Continue IV antibiotics * will need additional midnight stay. # Valvular disease, s/p bovine valve # dyslipidemia, on statin. Subjective: Pt new to me and chart reviewed. Feeling pretty good prior to surgery on pain meds. Objective: Vital Signs Temp Pulse Resp BP Pulse Ox 36.5 C 50 L 16 120/65 94 05/30/17 15:03 05/30/17 15:03 05/30/17 15:03 05/30/17 15:03 05/30/17 15:03 Laboratory Results 05/30/17 04:35 05/30/17 04:35 05/29/17 05/30/17 05/31/17 05:59 05:59 05:59 Intake Total 1350 700 Output Total 200 Balance 1150 700 - Physical Exam Constitutional: no apparent distress, not in pain Eyes: PERRL, anicteric sclera, EOMI Ears, Nose, Mouth, Throat: moist mucous membranes, hearing normal Cardiovascular: regular rate and rhythym Respiratory: no respiratory distress, no rales or rhonchi Gastrointestinal: normoactive bowel sounds, No tenderness Genitourinary: no bladder fullness Skin: warm Neurologic: AAOx3 Psychiatric: interacting appropriately, not anxious, not encephalopathic ICD10 Worksheet Patient Problems: Problems Problem Status Onset Calculus of left kidney Acute Renal colic on right side Acute
[2017-05-30] MEDS ORDERED: ALTEPLASE 2 MG VIAL IVP PRN (15:52)
[2017-05-30] MEDS ORDERED: PROTAMINE SULFATE 50 MG/5 ML VIAL IVP PRN (15:52)
[2017-05-30] MEDS ORDERED: MIDAZOLAM 2 MG/2 ML VIAL IVP PRN ×2 (15:52→21:03)
[2017-05-30] MEDS ORDERED: GLUCAGON HCL 1 MG VIAL IVP PRN (15:52)
[2017-05-30] MEDS ORDERED: MEPERIDINE 25 MG/ML SYR IVP PRN (15:52)
[2017-05-30] MEDS ORDERED: FLUMAZENIL 0.5 MG/5 ML MDV IVP PRN (15:52)
[2017-05-30] MEDS ORDERED: HEPARIN 10,000 UNIT/10 ML MDV (1,000 UNIT/ML) IVP PRN (15:52)
[2017-05-30] MEDS ORDERED: NS 1,000 ML IV SCH (16:00)
--- NOTE | 2017-05-30 16:08 | PDMN ---
Medical Necessity Medical necessity: C/M review: est. > 2 MN LOS for eval and TX of acute ureteral stone, hydronephrosis, flank pain requiring 05/30/2017 surgery for ureteral stome removal and post stone removal urology unable to place a stent requiring planned 05/30/2017 stent or nephrostomy tube placement in IR, ongoing IV Ceftriaxone, IV fluids, IV Dilaudid, comorbid valvular disease, dyslipidemia per 05/30/2017 Hospitalist progress note.
--- NOTE | 2017-05-30 16:14 | PDPROPOC ---
Sedation Plan of Care Sedation Plan of Care: vital signs stable, mental status noted, patient educated of risks, benefits, alternatives, patient can tolerate sedation ASA Classification: ASA 3 Planned drugs: fentanyl, midazolam Mallampati Score: Class 2 Mallampati Reference Image: Patient passed 3-3-2 rule?: Yes
--- NOTE | 2017-05-30 16:36 | SOAPPROG ---
CESAR Progress Note Assessment/Plan: Assessment: Urologic fragmentation of left ureteral stone, complicated by perforation of left ureter. Lack of hydronephrosis previously, expected to continue. Large left renal cortical cyst. Anticipate challenging procedure. Plan: Percutaneous left ureteral stent. Nephrostomy if unable to place stent. +/- drainage of large cyst, as needed. 05/30/17 16:36 05/30/17 16:42 Subjective: I was asked by Dr. Blunt to perform left ureteral stent or percutaneous nephrostomy on Mr. Hinds to treat perforation of left ureter. I discussed this in detail with the patient, his , and his [id number]. They accept risks (sepsis, internal bleeding, damage to nontarget organ, allergic reaction) , and they wish to proceed today. Objective: Vital Signs Temp Pulse Resp BP Pulse Ox 36.5 C 54 L 16 111/66 92 05/30/17 16:00 05/30/17 16:00 05/30/17 16:00 05/30/17 16:00 05/30/17 16:00 CT yesterday shows no hydronephrosis. Large left renal cortical cyst may increase difficulty of placement. ICD10 Worksheet Patient Problems: Problems Problem Status Onset Calculus of left kidney Acute Renal colic on right side Acute
[2017-05-30] MEDS ORDERED: MIDAZOLAM 2 MG/2 ML VIAL ONE (16:47)
[2017-05-30] MEDS ORDERED: fentaNYL 100 MCG/2 ML INJ ONE ×2 (16:48→23:15)
--- NOTE | 2017-05-30 17:57 | PDRADPN ---
Radiology Procedure Note Date of Procedure: 05/30/17 Radiologist: Preet Cervantes Anesthesia: IV Sedation Pre-op Diagnosis: Left nephro- and ureterolithiasis, perforated left ureter Post-op Diagnosis: Same Indication: Urine leak, traumatized ureter Procedure: Percutaneous Left ureteral stent Finding(s): Perforated left ureter, decompressed collecting system, small bifid left renal pelvis. 8F X 22 cm long internal left ureteral stent, patent to bladder. Inf/Abcess present in the surg proc area at time of surgery?: No EBL: 50-100 Complications: Mild self-limited hemorrhage, VSS.
[2017-05-30] MEDS ORDERED: IOPAMIDOL (ISOVUE-300) 100 ML BTL ONE ×2 (18:09→23:48)
[2017-05-30] MEDS ORDERED: IOPAMIDOL (ISOVUE-370) 150 ML BTL IV ONE (18:09)
[2017-05-30] MEDS ORDERED: KETOROLAC 15 MG/1 ML SDV ONE (18:18)
--- NOTE | 2017-05-30 18:46 | CPEKG ---
Heart Rate: 73 RR Interval: 822 P-R Interval: 180 QRSD Interval: 102 QT Interval: 424 QTC Interval: 468 P [place]: 73 QRS [place]: -4 T Wave [place]: 64 EKG Severity - BORDERLINE ECG - EKG Impression: SINUS RHYTHM EKG Impression: PROBABLE LEFT ATRIAL ABNORMALITY Electronically Signed By: Fuentes Pacheco 31-May-2017 08:52:46
[2017-05-30] MEDS ORDERED: NOREPINEPHRINE/NS 500 ML IV SCH (19:00)
--- NOTE | 2017-05-30 19:48 | SOAPPROG ---
SOAP Progress Note Assessment/Plan: Assessment: Plan: Subjective: Brief Anesthesiology Note: Approx. 18:30 an overhead page for STAT team to PACU. On entry to PACU, patient hypotensive on monitor (NIBP = 50s/30s). Mr. Hinds known to me as I had provided him anesthesia earlier today, but patient was again in PACU following a separate procedure. Additional IV access obtained by STAT team and fluids started, but patient still hypotensive and NIBP cuff (oscillometric) experiencing difficulty locating blood pressure. Anesthesiologist placed a right radial 20g arterial line (seldinger technique). Additionally, patient needing pressor with beta activity (started on Norepi), a right sided triple lumen IJ central venous catheter was placed (Ultrasound guided) and CXR obtained in PACU. a. Arterial line (18:40-18:45) - skin prepped with chlorhexidine. Gloves utilized to perform procedure. Arrow 20g cannulla utilized to gain access. Easy placement, 1 attempts. Position confirmed with blood return and arterial waveforms visualized on monitor. b. Central Venous Catheter - (18:50 - 19:00) - Skin (right side of neck) prepped with chlorhexidine. Anesthesiologist and Anesthesiology Maintenance Scheduler appropriately dressed (cap, mask, gown, hand hygiene and sterile gloves). Full body fenestrated drape placed over patient. Ultrasound probe covered with sterile cover and sterile ultrasound gel utilized. Large right IJ easily visualized on ultrasound. Catheter over needle technique utilized to obtain CV access, wire passed easily through catheter. Dilator with small skin johnny prior to placement of triple lumen CVC. Biopatch placed on skin at needle puncture site. catheter sutured in place with "lock." All covered with sterile tegarderm prior to removal of fenestrated body draping. Portable X-ray obtained in PACU. Objective: Vital Signs Temp Pulse Resp BP Pulse Ox 36.6 C 54 L 28 H 121/62 H 100 05/30/17 18:11 05/30/17 16:30 05/30/17 19:15 05/30/17 19:12 05/30/17 18:46 Laboratory Results 05/30/17 19:20 05/29/17 05/30/17 05/31/17 05:59 05:59 05:59 Intake Total 300 Balance 300 ICD10 Worksheet Patient Problems: Problems Problem Status Onset Calculus of left kidney Acute Renal colic on right side Acute
[2017-05-30] MEDS ORDERED: DOPamine/DEXTROSE/250 ML BAG IV ONE (19:54)
[2017-05-30] MEDS ORDERED: NA BICARBONATE 50 MEQ/50 ML VIAL ONE (20:03)
[2017-05-30] MEDS ORDERED: EPINEPHrine 1 MG/10 ML SYR IVP ONE (20:08)
[2017-05-30] MEDS ORDERED: VASOPRESSIN/DEXTROSE 250 ML IV ONE (20:30)
--- NOTE | 2017-05-30 20:37 | EDPHY ---
Inpatient Procedure Narrative: Procedure: Rapid sequence intubation. Request by patients primary care physician for intubation due to critical condition. Because of the patient's medical condition, consent is implied. Indication for the procedure: Respiratory distress, low oxygen saturation, hypotension The patient was pre-oxygenated with 100% oxygen by non-rebreather facemask. The following medications were given intravenously: etomidate 20mg and rocuronium 100mg. Employing the video laryngoscope, the vocal chords were easily visualized. The patient was orally intubated under direct visualization with a 7.5 ETT. Tracheal intubation was confirmed by appropriate color change with the End Tidal CO2 detector. Capnography waveform was appropriate. Breath sounds were equal bilaterally without breath sounds over the stomach. The procedure was performed by myself.
[2017-05-30 20:46] LABS: INR 1.88 (0.83-1.16); PROTIME(PATIENT) 21.7 SEC (12.0-15.0)
--- NOTE | 2017-05-30 21:09 | HOSPPROG ---
Hospitalist Progress Note Assessment/Plan: stat team for postop hypotension p anterograde nephrostomy tube and prior to that a cystoscopy w failed laser stone removal bp 50/30, pulse 60's, deleon w hematuria. patient groggy volume resuscitatiion ct w [id number] cm RP bleed w possible extravasation transfer to ICU refractory hypotension despite 3 L IVF and three pressors groin cordis placed, three units blood via rapid infuser, bp improved intubated cxr w lines and ETT in place IR aware, plan likely embolization case d/w anesthesiology, trauma surgery, IR MD 150 minutes crit care wean pressors sedate q4 hct Objective: Vital Signs Temp Pulse Resp BP Pulse Ox 36.6 C 54 L 28 H 121/62 H 100 05/30/17 18:11 05/30/17 16:30 05/30/17 19:15 05/30/17 19:12 05/30/17 18:46 Laboratory Results 05/30/17 20:20 05/29/17 05/30/17 05/31/17 05:59 05:59 05:59 Intake Total 300 Balance 300 PT 21.7 SEC (12.0-15.0) H 05/30/17 20:20 INR 1.88 (0.83-1.16) H 05/30/17 20:20 ICD10 Worksheet Patient Problems: Problems Problem Status Onset Calculus of left kidney Acute Renal colic on right side Acute
[2017-05-30] MEDS ORDERED: fentaNYL/NACL 100 ML IV SCH (21:30)
[2017-05-30] MEDS ORDERED: ETOMIDATE 40 MG/20 ML INJ ONE (21:38)
[2017-05-30] MEDS ORDERED: ROCURONIUM 100 MG/10 ML VIAL ONE (21:38)
--- NOTE | 2017-05-30 21:56 | PDANEPAE ---
ANE History of Present Illness Hypotensive pt for IR.. S/P L nephrostomy tube ANE Past Medical History - Cardiovascular History Cardiovascular History Comment: History of Cardiac Arrest. History of Valve replacement - Pulmonary History Hx Oxygen in Use at Home: No Hx Sleep Apnea: No Sleep Apnea Screening Result - Last Documented: Positive - Endocrine History Hx Diabetes: No Hypothyroid: No Hyperthyroid: No Obesity: no - Renal History Hx Renal Disorders: Yes Renal History Comment: Renal stones - Liver History Hx Hepatic Disorders: No - Neurological & Psychiatric Hx Hx Neurological and Psychiatric Disorders: No - Cancer History Hx Cancer: No - Congenital Disorder History Hx Congenital Disorders: No - GI History GERD: no - Chronic Pain History Chronic Pain: No ANE Review of Systems Review of Systems: ANE Patient History - Allergies Allergies/Adverse Reactions: No Known Allergies Allergy (Verified 05/29/17 14:54) - Home Medications Home Medications: Amoxicillin 2,000 mg PO AD PRN 12/03/16 [Last Taken Unknown] Atorvastatin Calcium [Lipitor 10 mg (*)] 10 mg PO HS 12/03/16 [Last Taken ] Herbals/Supplements -Info Only 1 each PO DAILY 12/03/16 [Last Taken Unknown] - NPO status NPO Since - Liquids (Date): 05/30/17 NPO Since - Liquids (Time): 00:00 NPO Since - Solids (Date): 05/30/17 NPO Since - Solids (Time): 00:00 - Smoking Hx Smoking Status: Former smoker - Alcohol Use Alcohol Use: Rarely ANE Labs/Vital Signs - Labs Result Diagrams: 05/30/17 21:20 05/30/17 21:17 - Vital Signs Blood Pressure: 121/62 Heart Rate: 54 Respiratory Rate: 28 O2 Sat (%): 100 Height: 182.88 cm Weight: 76.4 kg ANE Physical Exam - Airway Mouth exam: ETT in situ - Cardiovascular Cardiovascular: irregularly irregular - ASA Status ASA Status: IV, E ANE Anesthesia Plan Urgent/Emergent Case: Veronika johnson completed preop but documented later for safe timely pt care (Emergent IR retro bleed)
[2017-05-30 22:23] LABS: PLATELET COUNT 74 10^3/uL (150-400)
[2017-05-30 22:30] LABS: INR 1.85 (0.83-1.16); PROTIME(PATIENT) 21.4 SEC (12.0-15.0)
[2017-05-30] MEDS ORDERED: SODIUM BICARBONATE 50 MEQ/50 ML SYR ONE ×2 (22:34→22:56)
--- NOTE | 2017-05-30 23:39 | PDRADPN ---
Radiology Procedure Note Date of Procedure: 05/30/17 Radiologist: Preet Cervantes Anesthesiologist: Dr. Lisa Castro Anesthesia: GET(General Endotracheal) Pre-op Diagnosis: Severe left retroperitoneal hemorrhage Post-op Diagnosis: Laceration of branch of left renal artery Indication: Life-threatening hemorrhage, DIC Procedure: Transcatheter embolization of branch of left renal artery Finding(s): Bleeding site identified and successfully embolized with four microcoils. Inf/Abcess present in the surg proc area at time of surgery?: No EBL: Minimal Complications: None.
[2017-05-30] MEDS ORDERED: LIDOCAINE 1% 300 MG/30 ML SDV ONE (23:49)
--- NOTE | 2017-05-30 23:54 | GOP ---
[f rep st] OPERATIVE REPORT DATE OF OPERATION: 05/30/2017 SURGEON: Ochoa Harris MD PREOPERATIVE DIAGNOSIS: Hypotension, retroperitoneal bleed. POSTOPERATIVE DIAGNOSIS: Hypotension, retroperitoneal bleed. PROCEDURE PERFORMED: Central vein catheterization, right femoral. FINDINGS: INDICATIONS: Patient is a 71-year-old male, who was hypotensive after sustaining a retroperitoneal b leed from a percutaneous nephrostomy tube placement. DESCRIPTION OF PROCEDURE: Patient in supine, the right groin shaved, scrubbed with Betadine, draped in the usual sterile fashion. Using sterile technique, an 18-gauge thin needle was used to aspirate the right femoral vein. A guidewire was inserted easily. A dilator and 8-Indonesian introducer assembly were placed over this and the dilator removed. The catheter was aspirated for blood, flushed with h eparinized saline, and then sutured to the skin to prevent dislodgement. A Tegaderm dressing was arias los over this, and the device was hooked to a rapid infuser for blood transfusion /[id number]/MODL
[2017-05-31] MEDS ORDERED: DOPamine/DEXTROSE/250 ML BAG IV ONE (00:08)
[2017-05-31] MEDS ORDERED: NALOXONE HCL 0.4 MG/ML INJ IVP PRN (00:08)
[2017-05-31] MEDS ORDERED: PROPOFOL/EMULSION 1,000 MG/100 ML BOTTLE IV ONE (00:11)
[2017-05-31] MEDS: PROPOFOL/EMULSION 100 ML IV SCH ×3 (00:18→20:05)
[2017-05-31] MEDS: fentaNYL/NACL 100 ML IV SCH ×2 (00:30→18:17)
[2017-05-31] MEDS: ATORVASTATIN CALCIUM 10 MG TAB PO SCH (00:46)
[2017-05-31 04:41] LABS: PLATELET COUNT 98 10^3/uL (150-400)
--- NOTE | 2017-05-31 07:29 | POSTANESTH ---
Post Anesthetic Evaluation Cardiovascular Status: Tx Hyper/Hypo-tension Respiratory Status: Requires Airway Assist Level of Consciousness/Mental Status: Other, See Comment Pain Control: Adequate, Prn Tx Ordered Nausea/Vomiting Control: Adequate, Prn Tx Ordered (Continues on vent. Pressors weaning. Sedated. Moved all extremities by report. Critical condition.) Complications Possibly Related to Anesthesia: Other, See Comments
[2017-05-31 08:04] LABS: INR 1.42 (0.83-1.16); PROTIME(PATIENT) 17.5 SEC (12.0-15.0)
[2017-05-31] MEDS: VASOPRESSIN/DEXTROSE 250 ML IV SCH ×2 (08:17→20:02)
[2017-05-31] MEDS: TAMSULOSIN HCL 0.4 MG CAP PO SCH (09:37)
--- NOTE | 2017-05-31 10:20 | HOSPPROG ---
Hospitalist Progress Note Assessment/Plan: 71 yo admitted with flank pain. He was found to have an 8mm ureteral stone with hydronephrosis. He underwent stone removal by Dr. Blunt on 05/30, who was unable to place a stent and then had IR proceed with percutaneous stent placement on the evening of 05/30 which was complicated by laceration of a branch of the renal artery causing large retroperitoneal bleed complicated by DIC, requiring PRBCs and intubation and ICU care. # Ureteral stone. s/p removal, stent in place per IR, complicated by perforated ureter. * S/P IR perc internal stent placement * Complicated by laceration of branch of renal artery, s/p transcatheter embolization. * continue antibiotics for now given complications # Acute blood loss anemia with septic shock * ICU care and intubation * transfusion of 8u PRBC, 3u FFP, 2 plts. * stable h/h and BP currently, discussed with crit care * continue ICU care * monitor labs. # Valvular disease, s/p bovine valve, not on anticoagulation # dyslipidemia, on statin. Subjective: intubated and sedated, reviewed chart, discussed hospital course with Objective: Vital Signs Temp Pulse Resp BP Pulse Ox 37.4 C 76 18 99/55 L 95 05/31/17 06:00 05/31/17 09:00 05/31/17 09:00 05/31/17 09:00 05/31/17 09:00 Laboratory Results 05/31/17 07:45 05/31/17 04:30 05/30/17 05/31/17 06/01/17 05:59 05:59 05:59 Intake Total 06656.6 Output Total 750 Balance 9599.6 PT 17.5 SEC (12.0-15.0) H 05/31/17 07:45 INR 1.42 (0.83-1.16) H 05/31/17 07:45 - Physical Exam Constitutional: not in pain Eyes: pale conjunctiva Ears, Nose, Mouth, Throat: other (ET tube) Cardiovascular: regular rate and rhythym Respiratory: no rales or rhonchi, other (intubated) Gastrointestinal: soft, non-tender abdomen Genitourinary: deleon in urethra Skin: warm, No normal color (pale) Musculoskeletal: other (sedated) Neurologic: other (sedated), No AAOx3 Psychiatric: other (sedated, ), No agitated ICD10 Worksheet Patient Problems: Problems Problem Status Onset Renal colic on right side Acute Calculus of left kidney Acute
--- NOTE | 2017-05-31 10:43 | SOAPPROG ---
CESAR Progress Note Assessment/Plan: Assessment: s/p ureteroscopy with failed retrograde stent placement s/p antegrade stent placement retroperitoneal bleed s/p embolization- no current evidence of bleeding Plan: Supportive care per ICU protocols discussed with will need ureteral stent in for a few weeks 05/31/17 10:41 Subjective: overnight events noted. Pt intubated and sedated Objective: Vital Signs Temp Pulse Resp BP Pulse Ox 36.7 C 85 18 101/59 L 92 05/31/17 10:00 05/31/17 10:00 05/31/17 10:00 05/31/17 10:00 05/31/17 10:00 Laboratory Results 05/31/17 07:45 05/31/17 04:30 05/30/17 05/31/17 06/01/17 05:59 05:59 05:59 Intake Total 69470.6 Output Total 750 Balance 9599.6 PT 17.5 SEC (12.0-15.0) H 05/31/17 07:45 INR 1.42 (0.83-1.16) H 05/31/17 07:45 Physical Exam - Physical Exam General Appearance: other (intubated and sedated) Abdomen: distended Male Genitalia: other (urine bloody but no clots) ICD10 Worksheet Patient Problems: Problems Problem Status Onset Calculus of left kidney Acute Renal colic on right side Acute
--- NOTE | 2017-05-31 11:11 | GOP ---
[f rep st] OPERATIVE REPORT DATE OF OPERATION: 05/30/2017 SURGEON: Tete Blunt MD ELECTROMECHANICAL EQUIPMENT ASSEMBLER: None. PREOPERATIVE DIAGNOSIS: Left proximal ureteral stone. POSTOPERATIVE DIAGNOSIS: Left proximal ureteral stone. PROCEDURE PERFORMED: Cystoscope, left ureteroscopy, laser and attempted ureteral stent placement. FINDINGS: INDICATIONS: The patient is a pleasant 71-year-old gentleman, who had acute onset of left flank pain on the day of admission. He came to the emergency room due to flank pain, nausea, and vomiting. CT scan demonstrated 8 mm proximal ureteral stone with forniceal rupture. He had a mild elevation in h is creatinine. Given these findings, and the fact that he had poor pain control, it was recommended he be admitted and be given, and given the large size of the stone, I recommended operative intervent ion. Preoperatively, I had a lengthy discussion of risks, benefits, and alternatives with him, inclu ding the potential that we would not be able to remove the stone, or there could be the need for crystal tional procedures. He did provide informed consent. DESCRIPTION OF PROCEDURE: After informed consent was obtained, he was taken to the operating room, w here he was given general anesthesia. He was placed in the low lithotomy position with special atten tion to padding of all bony prominences. His genitals were prepped and draped in sterile fashion. A cystocope was inserted into the urethra, passed to the prostate. The prostate demonstrated moderate hypertrophy. Bladder scanned 360 degrees. There was some moderate trabeculation, but no other abno rmalities. At this time, a guidewire was inserted into the left ureter and passed beyond the stone i nto the left renal pelvis. The stone could be easily visualized on fluoroscopy, and was just beyond the UPJ. At this point, I placed a semi-rigid ureteroscope and was able to gently advance the scope up to the level of the stone. A 365 laser fiber was introduced, and I proceeded to start to ablate t he stone. However, the stone started to migrate proximally. For this reason, I advanced an Expand b asket and grasped the stone. This was gently pulled down into the ureter. I took special care to ma ke sure that there was no major tension when I was retracting the stone. In the midureter the stone became affixed, and not wanting to injure the ureter, I detached the basket. The scope was then pass ed along the side, and a laser was used to fracture the stone into small pieces. The basket was then removed. It was inspected to make sure that it was removed in toto. There was no evidence of any d amage to the basket. Repeat ureteroscopy showed that there were just small stone fragments. However , during this time, the wire migrated proximally beyond the UPJ. I attempted to pass the wire back u p into the kidney. However, it was meeting resistance. I passed the ureteroscope up along side, and there was evidence of some ureteral disruption in this area. A retrograde showed some extravasation of fluid. I spent the next several minutes attempting to reconstitute connection to the proximal ki dney without success. At this point, after exhausting all potential endoscopic options from a retrog rade fashion, I elected to terminate the procedure without placing a stent. The bladder was irrigate d of some clots. Lidocaine jelly was placed, and he was reversed from anesthesia and sent to the rec overy room in stable condition. There were no noted specimens, and estimated blood loss was 10 mL. Complications include inability to place the ureteral stent. After the procedure, I discussed the situation with both the patient, his , and his [id number] , and I discussed it with Dr. Olguin of Interventional Radiology, who is willing to attempt an antegra de ureteral stent placement. This will be attempted later in the day. /[id number]/MODL
--- NOTE | 2017-05-31 11:39 | ECHO ---
[email or web address] [address] [address] Main: [phone] Fax: Transthoracic Echocardiogram Name: ROSALIO MAR MR#: [id number] Study Date: 05/31/2017 Study Time: 08:45 AM Date of : 1945 Age: 71 year(s) Height: 182.9 cm (72 in.) Weight: 76.2 kg (168 lb.) BSA: 1.98 m2 Gender: Male Examination: Echo Indication: Image Quality: Technically Difficult Contrast: Requested by: Montrell Luu BP: 89 mmHg/65 mmHg Heart Rate: Rhythm: Indication: Procedure Staff Furnace Installer: Macy Guido Reading Physician: Fuentes Pacheco Requesting Provider: Conclusions: Moderately reduced systolic LV function. EF is 33 %. Study inadequate to determine wall motion abnormalities.. Mildly reduced RV function. There is mild prolapse of the anterior leaflet of the mitral valve. Cannot rule out mitral valve vegetation. Normal functioning aortic valve prosthesis. The prosthetic aortic valve is normal. Small pericardial effusion. The pericardial effusion is adjacent to the right ventricle. Bilateral pleural effusion. Results tiera Scruggs at time of this read Measurements: Chambers Valvular Assessment AV/MV Valvular Assessment TV/PV Normal Normal Normal Name Value Range Name Value Range Name Value Range IVSd (2D): 1.6 cm (0.6 cm-1.1 AV meanP mmHg ( - ) TR Vmax: 2.63 mm/s ( - ) cm) LVOT Vmax: 0.93 m/s (0.7 m/s-1.1 TR PGmax: 28 mmHg ( - ) LVDd (2D): 5.1 cm (4.2 cm-5.9 m/s) cm) MV E Vmax: 0.78 m/s ( - ) LVDs (2D): 4.3 cm (2.1 cm-4 MV A Vmax: 0.71 m/s ( - ) cm) MV E/A: 1.10 ( - ) LVPWd (2D): 1.1 cm (0.6 cm-1 MV meanP mmHg ( - ) cm) LVEF (2D): 33 (>=54 %) Continued Measurements: Valvular Assessment AV/MV Patient: ROSALIO MAR Study Date: 05/31/2017 Page 1 of 2 08:45 AM Name Value MV DecTime: 187 m/s MV VTI: 25.00 cm Findings: Left Ventricle: Normal size left ventricle. Moderately reduced systolic LV function. EF is 33 %. Study inadequate to determine wall motion abnormalities.. Right Ventricle: Normal size right ventricle. Mildly reduced RV function. Left Atrium: Size is normal by visual assessment.. Right Atrium: Size is normal by visual assessment.. Mitral Valve: There is mild prolapse of the anterior leaflet of the mitral valve. Trivial mitral valve regurgitation. Cannot rule out mitral valve vegetation. Aortic Valve: The aortic valve is a bioprosthesis. Normal functioning aortic valve prosthesis. The prosthetic aortic valve is normal. No prosthesis stenosis. No prosthesis regurgitation. Tricuspid Valve: The tricuspid valve is normal in appearance and function. Trivial to mild tricuspid valve regurgitation. Pulmonic Valve: Pulmonary valve not well visualized. IVC: The IVC is not well visualized. Pericardium: Small pericardial effusion. The pericardial effusion is adjacent to the right ventricle. Bilateral pleural effusion. Exam Comments: Technically diffiicult study. Patient supine and on vent for duration of exam.. (No Signature Object) Patient: ROSALIO MAR Study Date: 05/31/2017 Page 2 of 2 08:45 AM [id number]
--- NOTE | 2017-05-31 13:01 | GCON ---
[f rep st] CONSULTATION PULMONARY CRITICAL CARE CONSULTATION DATE OF CONSULTATION: 05/31/2017 REASON FOR CONSULTATION: Acute respiratory failure, ventilatory management, shock secondary to acute retroperitoneal bleed. HISTORY OF PRESENT ILLNESS: The patient is a 71-year-old gentleman who presented on May 29 with abdominal pain and nausea and vomiting. He had a known history of renal stones. He was found to hav e a proximal 8 mm ureteral stone with obstruction. Urology was consulted. Endoscopic treatment was attempted but was unsuccessful. Ureteral stent could not be placed. Subsequently, a ureteral stent was placed with difficulty by Interventional Radiology. There was a laceration of the inferior renal artery on the left which required micro coil embolization. This was associated with a large retrope ritoneal bleed and hypotension, acute blood loss anemia. The patient developed significant hypotensi on. He was resuscitated with fluids and given blood and transferred emergently to the intensive care unit. He required intubation and pressor therapy. Currently, he is in the ICU on the ventilator at 60%. He remains on dopamine and vasopressin. He is not currently on norepinephrine. Mean arterial pressures are approximately 70. He has been intermi ttently arousable although remains sedated per ventilatory protocols. His last hematocrit was 30.6. He has received a total of 8 units of packed red blood cells, 3 units of fresh frozen plasma, and 2 units of platelets. PAST MEDICAL HISTORY: Remarkable for coronary artery disease, he is status post open heart surgery f or a valve replacement over 10 years ago and complete details are unknown to me. There is a history of hyperlipidemia and renal stones. PAST SURGICAL HISTORY: Previous surgeries include open heart and tonsillectomy. SOCIAL HISTORY: The patient is . He smoked cigarettes in the very distant past, quitting ove r 40 years ago. Alcohol is denied. He is quite active. He walks a number of miles daily without sh ortness of breath or difficulty. FAMILY HISTORY: Noncontributory. REVIEW OF SYSTEMS: A 10-point review of systems is unobtainable secondary to sedation and mechanical ventilation. PHYSICAL EXAMINATION: GENERAL: Reveals a gentleman who appears comfortable, on the ventilator. He is sedated, on pressors. VITAL SIGNS: Blood pressure is 94/56 with a mean arterial pressure of 68, heart rate is 85 with sinus rhythm on the monitor, respiratory rate is 20, set at 18 on the ventilato r. He is on 60% FiO2 with saturations of 94%. HEENT: Remarkable for the oral endotracheal tube breanna ng in place. He has no NG or OG at this time. Pupils appear equal. NECK: Somewhat large. Jugular venous pressure is difficult to evaluate. There is no obvious thyromegaly or lymphadenopathy. CHES T: Clear anteriorly. Breath sounds are diminished at the bases. There are no significant rales, no rhonchi, no wheezing. HEART: Regular in rate and rhythm. There is a systolic murmur. No gallops are appreciated. ABDOMEN: Somewhat distended and quiet. There is no obvious tenderness. A Barboza c atheter is in place. Urine output is good, somewhat bloody. EXTREMITIES: Unremarkable for signific ant edema. Current lines include a triple lumen catheter in the right internal jugular vein, a right femoral catheter in the groin and arit femoral artery groin art line. NEUROLOGIC: He has moved a ll extremities intermittently and responds appropriately to simple questions and commands when lighte hemant. He is being sedated with propofol and fentanyl. LABORATORY: The latest arterial blood gas shows a pH 7.26, pCO2 of 47, PO2 63. CO2 is 22. This is on 40%, 600, and rate of 18, with 5 of PEEP. White blood cell count of 16,400, hematocrit 30.6. Kelsey telets are 98,000. PT is 17.5, PTT 33.9. Sodium is 141, potassium 4.3, CO2 of 18, BUN 22, with a cr eatinine of 1.3. Glucose is 213, calcium 7.7. Troponin is nonspecifically elevated at 0.1. Chest x-ray shows some hypoventilatory changes on the right with a relatively high right hemidiaphrag m. Diaphragm was not elevated after his heart surgery. CT scan of the abdomen yesterday showed a large retroperitoneal hematoma on the left, displacing the left kidney anteriorly. A ureteral stent was in good position with decompression and now no obstruct ion of the ureter. Some bibasilar atelectasis was noted. ASSESSMENT: 1. Hypovolemic shock. This was secondary to a large retroperitoneal bleed, in turn due to a lacerat ed left renal artery branch. He is status post embolization by coiling. There is no evidence of hasmukh oing bleeding. He did receive 8 units of packed red blood cells and blood products as described abov e. Hematocrit is currently stable at 30. He remains hypotensive but this clearly is improving. He is on dopamine and vasopressin with acceptable blood pressures at this time. The filling pressures a re excellent with a CVP of 14 currently. 2. Acute respiratory failure secondary to hypovolemic shock. He arrested and required intubation. He is doing well on the ventilator with oxygen requirements currently at 60%. There is no evidence o f pneumonia or definite aspiration, however, sputum culture will be obtained. Volume overload from a ggressive fluid and blood resuscitation may be playing a role in his current oxygen requirements. Ap propriate ventilatory support will be maintained. 3. Ureteral stone, status post stent placement and fragmentation of the stone. The left ureter is n o longer obstructed. Other ureteral issues related to his stone and procedures per Urology. 4. Right renal artery branch disruption, status post coiling. Retroperitoneal bleed was secondary t o this. 5. Acute blood loss anemia. Hematocrit currently stable at 30. 6. Prophylaxis: Deep vein thrombosis with sequential compression devices only secondary to bleeding , pantoprazole will be added for gastrointestinal prophylaxis. PLAN AND RECOMMENDATIONS: The patient will be kept in the intensive care unit. Appropriate ventilat ory support will be maintained. CPAP trials will be initiated once hypoxemia has improved. A sputum culture will be obtained. Appropriate pain control and sedation will be maintained. He is on ceftr iaxone. This will be continued. Pantoprazole will be added. Pressors will be weaned as tolerated. CVPs will be kept in the 10-12 range going forward. Further blood will be given if needed. Laborat ory, arterial blood gas, and chest x-ray will be followed. Further plans and recommendations will be made based on his progress over the next 12-24 hours. One hour of critical care time was spent directly with the patient. /[id number]/MODL
--- NOTE | 2017-05-31 18:10 | ASMTCMCOM ---
CM Note CM Note Notes: 71 year old male admitted for LLQ pain. He has a hx of DLD, HLD, cardiac arrest, valve replacement, kidney stones. Patient was in surgery to place a stent above the stone when an artery was nicked. Patient's blood pressure dropped. he was given blood products. Now on vent 60% IO2. Lives with his and she reports that he walks 8-10 mis/day. CM to follow for discharge needs. Date Signed: 05/31/2017 06:09 PM Electronically Signed By:Nicole Terrell LCSW
[2017-06-01] MEDS: PROPOFOL/EMULSION 100 ML IV SCH ×4 (03:51→22:58)
[2017-06-01 05:40] LABS: PLATELET COUNT 82 10^3/uL (150-400)
[2017-06-01 05:42] LABS: INR 1.2 (0.83-1.16); PROTIME(PATIENT) 15.4 SEC (12.0-15.0)
[2017-06-01] MEDS: VASOPRESSIN/DEXTROSE 250 ML IV SCH ×2 (07:03→20:40)
--- NOTE | 2017-06-01 08:24 | PDINTPN ---
Quality Improvement Engineer Progress Note Assessment/Plan: Assessment/plan: * Hypovolemic shock-still on multiple pressors. Blood pressure still somewhat cough. Will wean as tolerated. * Acute respiratory failure secondary to shock-still with high FiO2. Likely fluid overload. -wean both feet as well as FiO2 -will hold diuresis for now * Ureteral stone * Right renal artery branch disruption-status post coiling * Retroperitoneal bleed * Anemia secondary to blood loss-hemoglobin and a currently able * History of coronary disease-status post coronary bypass graft * Sedation-appears operable at this time. -increased sedation now * VTE prophylaxis-on hold * Stress ulcer prophylaxis * Hematuria * History of valve replacement Case discussed with Nursing and Respiratory therapy Subjective: Sedated on mechanical ventilation Objective: Vital Signs Temp Pulse Resp BP Pulse Ox 37.1 C 57 L 20 110/67 95 05/31/17 20:00 06/01/17 08:09 06/01/17 08:09 06/01/17 07:00 06/01/17 08:09 Laboratory Results 06/01/17 05:10 06/01/17 05:10 05/31/17 06/01/17 06/02/17 05:59 05:59 05:59 Intake Total 01812.6 1773 Output Total 750 1251 100 Balance 9599.6 522 -100 PT 15.4 SEC (12.0-15.0) H 06/01/17 05:10 INR 1.20 (0.83-1.16) H 06/01/17 05:10 Laboratory Results 06/01/17 05:10 06/01/17 05:10 06/01/17 06/01/17 05:10 05:10 Patient Temperature 37.1 DEGREES DEGREES pCO2 39 mmHg H mmHg (34 - 38) pO2 60 mmHg L mmHg (65 - 75) Total CO2 25 mEq/L mEq/L (23 - 27) ABG pH 7.40 (7.35 - 7.45) ABG PO2/FiO2 Ratio 100 RATIO RATIO ABG HCO3 23 mEq/L mEq/L (22 - 26) ABG O2 Saturation 91 % L % (92 - 95) ABG Base Excess -0.7 mEq/L mEq/L (-2.5 - 2.5) O2 Concentration % 60 % % Actual Respiration Rate 20 Set Respiration Rate 20 SIMV YES Tidal Volume 600 End Tidal CO2 37 PEEP 8 Pressure Support 7 Calcium 7.8 mg/dL L mg/dL (8.5 - 10.4) Ionized Calcium 1.16 MMOL/L MMOL/L (1.12 - 1.30) Magnesium 1.7 mg/dL mg/dL (1.6 - 2.3) Total Bilirubin 0.7 mg/dL mg/dL (0.1 - 1.4) AST 63 IU/L H IU/L (17 - 59) ALT 39 IU/L IU/L (21 - 72) Alkaline Phosphatase 37 IU/L L IU/L (38 - 126) Total Protein 4.5 g/dL L g/dL (6.3 - 8.2) Albumin 2.4 g/dL L g/dL (3.5 - 5.0) Chest q-dug-[id number] by myself. Endotracheal tube is in good position. Central line in good position. Elevated right hemidiaphragm appears present smallish lung volumes. - Time Spent With Patient Time Spent With Patient: 40 min of critical care time spent with patient more than half of which spent counseling her coordination of care Physical Exam - Physical Exam General Appearance: No alert (Sedated) EENT: PERRL/EOMI, ET tube Neck: non-tender Respiratory: rhonchi (Scattered), No respiratory distress, No wheezing Cardiac/Chest: normal peripheral pulses, regular rate, rhythm, systolic murmur Peripheral Pulses: 2+: carotid (R), carotid (L), femoral (R), femoral (L), dorsalis-pedis (R), dorsalis-pedis (L) Abdomen: normal bowel sounds, non-tender, soft Male Genitalia: deferred Rectal: deferred Skin: normal color, warm/dry Extremities: non-tender Neuro/Psych: No alert ICD10 Worksheet Patient Problems: Problems Problem Status Onset Calculus of left kidney Acute Renal colic on right side Acute
[2017-06-01] MEDS: TAMSULOSIN HCL 0.4 MG CAP PO SCH (09:10)
--- NOTE | 2017-06-01 15:01 | HOSPPROG ---
Hospitalist Progress Note Assessment/Plan: Assessment: 71 yo w/ hemorrhagic shock s/p renal artery laceration and resultant retroperitoneal bleed s/p percutaneous IR ureteral stent placement for obstructive uropathy from ureteral stone Plan: # Hemorrhagic shock. Acute, 2/2 retroperitoneal hemorrhage s/p renal artery laceration -s/p coiling of the L renal artery by IR -CT w/ large hematoma, Hgb currently stable, hold on further imaging -counseled that area may reabsorb naturally, but if complications arise, then drainage would be further course of action -unsuccessful dopamine wean, cont dopamine at 5 and attempt to wean the vasopressin -hold on further fluids given sCHF # Acute hypoxic respiratory failure. Evidenced by PaO2 60 while on 65% FiO2 (P: F 92, indicating severe acute lung injury), requiring intubation/positive pressure, likely 2/2 acute systolic CHF and shock -cont on vent, lowering FiO2 as tolerates -allow to naturese # Acute systolic CHF exacerbation. Evidenced by Echo w/ EF 33%, pleural effusions on CXR (personally interpreted), had good exercise tolerance prior to admission -order outpt Echo results from Dr. Cohn's office to compare EF -if discrepancies, plan to repeat Echo to see if he was experiencing acute stunning and has now recovered, if has not, then would consider risk stratification s/p recovery given known chronic CAD -hx of bovine MVR -holding on addition of lasix while he is on pressors -cont dopamine as primary pressor given low EF # Ureteral stone. S/p removal, stent in place per IR, complicated by perforated ureter. - S/P IR perc internal stent placement - Complicated by laceration of branch of renal artery, s/p transcatheter embolization/coil - off Abx # Acute blood loss anemia. S/p 8u PRBC, 3u FFP, 2 plts - no additional blood product required today Diet. NPO Code. Full PPx. High risk, SCDs, off pharm given bleed Dispo. ADD uncertain 40 minutes of total critical care time spent w/ patient and addressing issues above (specifically the systolic CHF) and coordinating w/ care team on rounds, patient remains high risk of worsening morbidity and/or mortality. Subjective: patient comfortable on vent Objective: Vital Signs Temp Pulse Resp BP Pulse Ox 37.1 C 61 20 128/62 H 94 05/31/17 20:00 06/01/17 14:00 06/01/17 14:00 06/01/17 14:00 06/01/17 14:00 Laboratory Results 06/01/17 13:50 06/01/17 05:10 05/31/17 06/01/17 06/02/17 05:59 05:59 05:59 Intake Total 58442.6 1773 Output Total 750 1251 500 Balance 9599.6 522 -500 PT 15.4 SEC (12.0-15.0) H 06/01/17 05:10 INR 1.20 (0.83-1.16) H 06/01/17 05:10 - Physical Exam Constitutional: no apparent distress, not in pain, No uncomfortable Eyes: anicteric sclera, other (pupils fixed, sluggishly reactive) Cardiovascular: regular rate and rhythym, no murmur, rub, or gallop, edema ( trace bilat LE, 1+ bilat UE) Respiratory: reduced air movement (bilat bases), inspiratory crackles (bilat bases), No expiratory wheeze, No bronchial breath sounds, No respiratory distress Gastrointestinal: no palpable masses, No normoactive bowel sounds (hypoactive bowel sounds), No distension ICD10 Worksheet Patient Problems: Problems Problem Status Onset Calculus of left kidney Acute Renal colic on right side Acute
--- NOTE | 2017-06-01 18:14 | SOAPPROG ---
SOAP Progress Note Assessment/Plan: Assessment: Calculus of left kidney Acute treated and stent in post PCN Hypotension due to blood loss Acute on pressors and stable Respiratory complication, post-procedure Acute on vent and improving slowly Renal colic on right side Acute not an issue at present Plan: continue ICU care, appreciate all input for pt critical care 06/01/17 18:12 Subjective: on vent, responsive, present for discussion Objective: Vital Signs Temp Pulse Resp BP Pulse Ox 37.1 C 56 L 20 118/53 L 96 05/31/17 20:00 06/01/17 17:51 06/01/17 17:51 06/01/17 17:51 06/01/17 17:51 Laboratory Results 06/01/17 13:50 06/01/17 05:10 05/31/17 06/01/17 06/02/17 05:59 05:59 05:59 Intake Total 13224.6 1773 658 Output Total 750 1251 750 Balance 9599.6 522 -92 PT 15.4 SEC (12.0-15.0) H 06/01/17 05:10 INR 1.20 (0.83-1.16) H 06/01/17 05:10 Physical Exam - Physical Exam General Appearance: other (on vent) Neck: normal inspection Abdomen: soft Male Genitalia: normal genitalia (cath ok) Skin: warm/dry Extremities: other (arms edema noted) Neuro/Psych: other (on vent) ICD10 Worksheet Patient Problems: Problems Problem Status Onset Calculus of left kidney Acute Hypotension due to blood loss Acute Respiratory complication, post-procedure Acute Renal colic on right side Acute - ICD10 Problem Qualifiers (1) Hypotension due to blood loss (2) Respiratory complication, post-procedure
[2017-06-02 04:30] LABS: PLATELET COUNT 75 10^3/uL (150-400)
[2017-06-02] MEDS: PROPOFOL/EMULSION 100 ML IV SCH ×4 (05:46→21:41)
[2017-06-02] MEDS: TAMSULOSIN HCL 0.4 MG CAP PO SCH (08:25)
--- NOTE | 2017-06-02 08:39 | PDINTPN ---
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 -will start weaning vasopressin 1st * Acute respiratory failure secondary to shock-improved. Chest x-ray and ABG are pending -wean FiO2 -will hold diuresis for now -not ready for extubation at this time * Ureteral stone * Right renal artery branch disruption-status post coiling * Retroperitoneal bleed * Anemia secondary to blood loss-hemoglobin and a currently stable * History of coronary disease-status post coronary bypass graft * Cardiomyopathy-echocardiogram from 05/31/2017 shows ejection fraction 33%. Will reassess this * Sedation-appears comfortable * VTE prophylaxis-on hold * Stress ulcer prophylaxis * Hematuria * History of valve replacement Subjective: Sedated on mechanical ventilation Objective: Vital Signs Temp Pulse Resp BP Pulse Ox 36.9 C 63 20 122/63 H 93 06/02/17 07:00 06/02/17 07:34 06/02/17 07:34 06/02/17 07:34 06/02/17 07:34 Laboratory Results 06/02/17 04:10 06/02/17 04:10 06/01/17 06/02/17 06/03/17 05:59 05:59 05:59 Intake Total 1773 1360.8 Output Total 1251 1300 Balance 522 60.8 PT 15.4 SEC (12.0-15.0) H 06/01/17 05:10 INR 1.20 (0.83-1.16) H 06/01/17 05:10 - Time Spent With Patient Time Spent With Patient: 40 min of critical care time spent with patient. Case discussed with respiratory therapy as well as Nursing Physical Exam - Physical Exam General Appearance: other (Awakens easily), No alert EENT: PERRL/EOMI, ET tube Neck: non-tender Respiratory: crackles (Scattered), No respiratory distress, No accessory muscle use, No wheezing Cardiac/Chest: normal peripheral pulses, regular rate, rhythm, systolic murmur Abdomen: normal bowel sounds, non-tender, soft Male Genitalia: deferred Rectal: deferred Skin: normal color, warm/dry Extremities: normal range of motion, non-tender, normal inspection, normal capillary refill Neuro/Psych: No alert ICD10 Worksheet Patient Problems: Problems Problem Status Onset Calculus of left kidney Acute Hypotension due to blood loss Acute Respiratory complication, post-procedure Acute Renal colic on right side Acute
[2017-06-02] MEDS: FAMOTIDINE 20 MG/NACL 50 ML IV SCH (11:06)
[2017-06-02] MEDS: NS 1,000 ML IV SCH (15:56)
--- NOTE | 2017-06-02 16:50 | SOAPPROG ---
SOAP Progress Note Assessment/Plan: Assessment: Calculus of left kidney Acute treated and stent in post PCN Hypotension due to blood loss Acute on pressors and stable Respiratory complication, post-procedure Acute on vent and improving slowly Renal colic on right side Acute not an issue at present Plan: continue ICU care, appreciate all input for pt critical care 06/02/17 17:28 Subjective: discussed with and her friend, questions answered Objective: Vital Signs Temp Pulse Resp BP Pulse Ox 36.9 C 54 L 20 96/48 L 99 06/02/17 16:00 06/02/17 16:00 06/02/17 16:00 06/02/17 16:00 06/02/17 16:00 Laboratory Results 06/02/17 04:10 06/02/17 04:10 06/01/17 06/02/17 06/03/17 05:59 05:59 05:59 Intake Total 1773 1360.8 Output Total 1251 1300 Balance 522 60.8 PT 15.4 SEC (12.0-15.0) H 06/01/17 05:10 INR 1.20 (0.83-1.16) H 06/01/17 05:10 Physical Exam - Physical Exam General Appearance: other (quiet and on vent) Cardiac/Chest: regular rate, rhythm Abdomen: soft Male Genitalia: other (cath ok) Skin: warm/dry Extremities: other (less arm edema today, fingers cool yet well perfused) ICD10 Worksheet Patient Problems: Problems Problem Status Onset Calculus of left kidney Acute Hypotension due to blood loss Acute Respiratory complication, post-procedure Acute Renal colic on right side Acute - ICD10 Problem Qualifiers (1) Hypotension due to blood loss (2) Respiratory complication, post-procedure
--- NOTE | 2017-06-02 16:57 | HOSPPROG ---
Hospitalist Progress Note Assessment/Plan: Assessment: 71 yo w/ hemorrhagic shock s/p renal artery laceration and resultant retroperitoneal bleed s/p percutaneous IR ureteral stent placement for obstructive uropathy from ureteral stone Plan: # Hemorrhagic shock. Acute, 2/2 retroperitoneal hemorrhage s/p renal artery laceration -s/p coiling of the L renal artery by IR -CT w/ large hematoma, Hgb currently stable, hold on further imaging -counseled regarding the cause of hypotension, use of pressors -weaning dopamine today, down to 2.5 -low rate maint IVF # Acute hypoxic respiratory failure. Evidenced by PaO2 60 while on 65% FiO2 (P: F 92, indicating severe acute lung injury), requiring intubation/positive pressure, likely 2/2 acute systolic CHF and shock -cont on vent, lowering FiO2 as tolerated to 40%, plan to extubate tomorrow if able -allow to naturese, plan to diurese once off pressors # Acute systolic CHF exacerbation. Evidenced by Echo w/ EF 33%, pleural effusions on CXR, had good exercise tolerance prior to admission and EF 45-50% on review of outpt Echo from 04/03 -hx of bovine MVR -cont dopamine as primary pressor given low EF -may have had myocardial stunning in setting of acute illness, will repeat Echo once extubated and off pressors -if EF remains low, will plan to get nuc stress prior to DC # Ureteral stone. S/p removal, stent in place per IR, complicated by perforated ureter. - S/P IR perc internal stent placement - Complicated by laceration of branch of renal artery, s/p transcatheter embolization/coil - Cont on CTX # Acute blood loss anemia. S/p 8u PRBC, 3u FFP, 2 plts - no additional blood product required today # DIC. Acute, in setting of above, resolved but w/ ongoing thrombocytopenia, cont to monitor # Ileus. Likely 2/2 sedation, no BMs - will require bowel regimen when off vent Diet. NPO Code. Full PPx. High risk, SCDs, off pharm given bleed Dispo. ADD uncertain 35 minutes of total critical care time spent w/ patient and /[id number] addressing issues above (specifically the systolic CHF) and coordinating w/ care team on rounds, patient remains high risk of worsening morbidity and/or mortality. Subjective: patient calm on vent Objective: Vital Signs Temp Pulse Resp BP Pulse Ox 36.9 C 54 L 20 96/48 L 99 06/02/17 16:00 06/02/17 16:00 06/02/17 16:00 06/02/17 16:00 06/02/17 16:00 Laboratory Results 06/02/17 04:10 06/02/17 04:10 06/01/17 06/02/17 06/03/17 05:59 05:59 05:59 Intake Total 1773 1360.8 Output Total 1251 1300 Balance 522 60.8 PT 15.4 SEC (12.0-15.0) H 06/01/17 05:10 INR 1.20 (0.83-1.16) H 06/01/17 05:10 - Physical Exam Constitutional: no apparent distress, No uncomfortable Ears, Nose, Mouth, Throat: other (intubated) Cardiovascular: systolic murmur (I/ at apex), edema (1+ bilat UE, trace bilat LE), No irregularly irregular, No tachycardia, No bradycardia Respiratory: inspiratory crackles (bilat), No reduced air movement, No expiratory wheeze, No bronchial breath sounds, No respiratory distress Gastrointestinal: soft, non-tender abdomen, no palpable masses, distension (mild ), No normoactive bowel sounds (hypoactive bowel sounds) Psychiatric: other (sedated) ICD10 Worksheet Patient Problems: Problems Problem Status Onset Calculus of left kidney Acute Hypotension due to blood loss Acute Respiratory complication, post-procedure Acute Renal colic on right side Acute
[2017-06-03] MEDS: FAMOTIDINE 20 MG/NACL 50 ML IV SCH ×3 (01:54→21:10)
[2017-06-03] MEDS: PROPOFOL/EMULSION 100 ML IV SCH (03:02)
[2017-06-03 05:30] LABS: PLATELET COUNT 89 10^3/uL (150-400)
[2017-06-03 05:39] LABS: INR 1.23 (0.83-1.16); PROTIME(PATIENT) 15.7 SEC (12.0-15.0)
[2017-06-03] MEDS: TAMSULOSIN HCL 0.4 MG CAP PO SCH (08:47)
--- NOTE | 2017-06-03 08:50 | PDINTPN ---
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 Vasopressin is off -will start weaning dopamine * Acute respiratory failure secondary to shock-improved. Chest x-ray and ABG are pending -check weaning parameters -CPAP trial -likely extubation later on today * Ureteral stone * Right renal artery branch disruption-status post coiling * Retroperitoneal bleed * Anemia secondary to blood loss-hemoglobin and a currently stable * History of coronary disease-status post coronary bypass graft * Cardiomyopathy-echocardiogram from 05/31/2017 shows ejection fraction 33%. Will reassess this * Sedation-appears comfortable. -Will decrease in anticipation of extubation * VTE prophylaxis-on hold * Stress ulcer prophylaxis * Hematuria * History of valve replacement Subjective: Sedated but arousable Objective: Vital Signs Temp Pulse Resp BP Pulse Ox 37.6 C 69 24 H 155/74 H 90 L 06/03/17 08:00 06/03/17 08:00 06/03/17 08:00 06/03/17 08:00 06/03/17 08:00 Laboratory Results 06/03/17 05:10 06/03/17 05:10 06/02/17 06/03/17 06/04/17 05:59 05:59 05:59 Intake Total 1360.8 2292.8 Output Total 1300 995 Balance 60.8 1297.8 PT 15.7 SEC (12.0-15.0) H 06/03/17 05:10 INR 1.23 (0.83-1.16) H 06/03/17 05:10 Laboratory Results 06/03/17 05:10 06/03/17 05:10 06/03/17 06/03/17 05:10 05:10 PT 15.7 SEC H SEC (12.0 - 15.0) INR 1.23 H (0.83 - 1.16) Patient Temperature 36.8 DEGREES DEGREES pCO2 32 mmHg L mmHg (34 - 38) pO2 68 mmHg mmHg (65 - 75) Total CO2 22 mEq/L L mEq/L (23 - 27) ABG pH 7.43 (7.35 - 7.45) ABG PO2/FiO2 Ratio 170 RATIO RATIO ABG HCO3 21 mEq/L L mEq/L (22 - 26) ABG O2 Saturation 94 % % (92 - 95) ABG Base Excess -2.7 mEq/L L mEq/L (-2.5 - 2.5) O2 Concentration % 40 % % Actual Respiration Rate 20 Set Respiration Rate 20 SIMV YES Tidal Volume 600 End Tidal CO2 36 PEEP 7 Pressure Support 7 Chest [id number] by myself. Endotracheal tube is in good position. Lines are in good position. Possible right pleural effusion. There is less pulmonary edema present. - Time Spent With Patient Time Spent With Patient: 45 min of critical care time spent with patient. Case discussed with Nursing and Respiratory therapy. Physical Exam - Physical Exam General Appearance: alert, other (Sedated) EENT: PERRL/EOMI, ET tube Neck: non-tender, full range of motion, supple, normal inspection Respiratory: crackles (Bibasilar), No respiratory distress, No wheezing Cardiac/Chest: normal peripheral pulses, regular rate, rhythm, systolic murmur Peripheral Pulses: 2+: carotid (R), carotid (L), femoral (R), femoral (L), dorsalis-pedis (R), dorsalis-pedis (L) Abdomen: normal bowel sounds, non-tender, soft Male Genitalia: deferred Rectal: deferred Skin: normal color, warm/dry Extremities: normal range of motion, non-tender, normal inspection, normal capillary refill Neuro/Psych: No alert ICD10 Worksheet Patient Problems: Problems Problem Status Onset Calculus of left kidney Acute Hypotension due to blood loss Acute Respiratory complication, post-procedure Acute Renal colic on right side Acute
[2017-06-03] MEDS ORDERED: FUROSEMIDE 40 MG/4 ML VIAL IVP ONE (12:21)
--- NOTE | 2017-06-03 12:45 | ASMTCMCOM ---
CM Note CM Note Notes: Patient extubated successfully today. He's being weaned off all pressors, as well. ACUTE COORDINATOR/PT/OT have been ordered, and evals are pending; this will help us determine discharge plan. Patient is supported by his [place]. Case Management will follow. Date Signed: 06/03/2017 12:44 PM Electronically Signed By:Jing Dahl RN
--- NOTE | 2017-06-03 15:13 | SOAPPROG ---
SOAP Progress Note Assessment/Plan: Assessment: Calculus of left kidney Acute treated and stent in post PCN, will continue and follow up in office in 3 weeks to address plan for removal Hypotension due to blood loss Acute off pressors and stable Respiratory complication, post-procedure Acute off vent and improving slowly Renal colic on right side Acute not an issue at present Plan: continue ICU care, appreciate all input for pt critical care 06/03/17 15:11 Subjective: sleeping Objective: Vital Signs Temp Pulse Resp BP Pulse Ox 37.7 C 69 18 148/71 H 94 06/03/17 12:00 06/03/17 14:00 06/03/17 14:00 06/03/17 14:00 06/03/17 14:00 Laboratory Results 06/03/17 05:10 06/03/17 05:10 06/02/17 06/03/17 06/04/17 05:59 05:59 05:59 Intake Total 1360.8 2292.8 479.9 Output Total 9198 057 7759 Balance 60.8 1297.8 -1670.1 PT 15.7 SEC (12.0-15.0) H 06/03/17 05:10 INR 1.23 (0.83-1.16) H 06/03/17 05:10 Physical Exam - Physical Exam General Appearance: other (sleeping) Neck: normal inspection Respiratory: No respiratory distress Cardiac/Chest: regular rate, rhythm Abdomen: soft Back: No CVA tenderness Skin: warm/dry ICD10 Worksheet Patient Problems: Problems Problem Status Onset Calculus of left kidney Acute Hypotension due to blood loss Acute Respiratory complication, post-procedure Acute Renal colic on right side Acute - ICD10 Problem Qualifiers (1) Hypotension due to blood loss (2) Respiratory complication, post-procedure
--- NOTE | 2017-06-03 16:57 | HOSPPROG ---
Hospitalist Progress Note Assessment/Plan: Assessment: 71 yo w/ hemorrhagic shock s/p renal artery laceration and resultant retroperitoneal bleed s/p percutaneous IR ureteral stent placement for obstructive uropathy from ureteral stone Plan: # Hemorrhagic shock. Acute, 2/2 retroperitoneal hemorrhage s/p renal artery laceration -s/p coiling of the L renal artery by IR -CT w/ large hematoma, Hgb currently stable, hold on further imaging -counseled regarding the cause of hypotension, use of pressors -weaned off pressors # Acute hypoxic respiratory failure. Evidenced by PaO2 60 while on 65% FiO2 (P: F 92, indicating severe acute lung injury), requiring intubation/positive pressure, likely 2/2 acute systolic CHF and shock -weaned off vent, cont on supp o2 # Acute systolic CHF exacerbation. Evidenced by Echo w/ EF 33%, pleural effusions on CXR, had good exercise tolerance prior to admission and EF 45-50% on review of outpt Echo from 04/03 -hx of bovine MVR -may have had myocardial stunning in setting of acute illness, will repeat Echo in 24-48hrs -if EF remains low, will plan to get nuc stress prior to DC -discussed with Dr. Thom Escamilla, we agree to dose with IV Lasix and gauge effect, stop IV fluids # Acute pleural effusion. RLL on CXR (personally interpreted), giving lasix # Ureteral stone. S/p removal, stent in place per IR, complicated by perforated ureter. - S/P IR perc internal stent placement - Complicated by laceration of branch of renal artery, s/p transcatheter embolization/coil - Cont on CTX - per Dr. Cochran, will f/u in office in 3 weeks # Acute blood loss anemia. S/p 8u PRBC, 3u FFP, 2 plts - no additional blood product required today # DIC. Acute, in setting of above, resolved but w/ ongoing thrombocytopenia, cont to monitor # Ileus. Likely 2/2 sedation, no BMs - start on bowel regimen Diet. 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 Full PPx. High risk, SCDs, off pharm given bleed Dispo. ADD uncertain High-level of medical complexity, high risk of worsening morbidity secondary to the issues as outlined above. Subjective: patient resting comfortably on face mask o2 Objective: Vital Signs Temp Pulse Resp BP Pulse Ox 37.7 C 70 18 152/69 H 93 06/03/17 12:00 06/03/17 16:00 06/03/17 16:00 06/03/17 16:00 06/03/17 16:00 Laboratory Results 06/03/17 05:10 06/03/17 05:10 06/02/17 06/03/17 06/04/17 05:59 05:59 05:59 Intake Total 1360.8 2292.8 479.9 Output Total 3282 052 7956 Balance 60.8 1297.8 -1670.1 PT 15.7 SEC (12.0-15.0) H 06/03/17 05:10 INR 1.23 (0.83-1.16) H 06/03/17 05:10 - Physical Exam Constitutional: no apparent distress, not in pain, No chronically ill appearing , No uncomfortable Cardiovascular: edema (trace bilat LE, 1+ bilat UE), No systolic murmur, No irregularly irregular, No tachycardia Respiratory: reduced air movement (R base), inspiratory crackles (bilat ), other (on face mask o2), No expiratory wheeze, No bronchial breath sounds, No respiratory distress Gastrointestinal: distension (moderate), No normoactive bowel sounds ( hypoactive bowel sounds), No tenderness, No guarding Neurologic: No facial droop Psychiatric: not anxious, flat affect, other (somnolent but able to follow commands), No agitated ICD10 Worksheet Patient Problems: Problems Problem Status Onset Renal colic on right side Acute Calculus of left kidney Acute Hypotension due to blood loss Acute Respiratory complication, post-procedure Acute
[2017-06-04 05:22] LABS: PLATELET COUNT 146 10^3/uL (150-400)
[2017-06-04] MEDS: FAMOTIDINE 20 MG/NACL 50 ML IV SCH (08:48)
[2017-06-04] MEDS: TAMSULOSIN HCL 0.4 MG CAP PO SCH (08:49)
[2017-06-04] MEDS: FUROSEMIDE 40 MG/4 ML VIAL IVP SCH (08:49)
--- NOTE | 2017-06-04 08:49 | PDINTPN ---
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 * Acute respiratory failure -stable off mechanical ventilation -continue oxygen nasal cannula * Diminished bowel sounds-query if this is ileus -will check abdominal x-ray * Ureteral stone * Right renal artery branch disruption-status post coiling * Retroperitoneal bleed-hemoglobin hematocrit remained stable * Anemia secondary to blood loss-hemoglobin and a currently remained stable * History of coronary disease-status post coronary bypass graft * Cardiomyopathy-echocardiogram from 05/31/2017 shows ejection fraction 33%. Will reassess this * Stress ulcer prophylaxis * Hematuria * History of valve replacement * PT/OT-start ambulating in the halls * Out of bed to chair Subjective: Sitting in bed. Comfortable. Describes vague abdominal pain. Is breathing easily Objective: Vital Signs Temp Pulse Resp BP Pulse Ox 37.7 C 62 29 H 122/61 H 95 06/03/17 12:00 06/04/17 06:00 06/04/17 06:00 06/04/17 06:00 06/04/17 06:00 Laboratory Results 06/04/17 04:32 06/04/17 04:32 06/03/17 06/04/17 06/05/17 05:59 05:59 05:59 Intake Total 2292.8 579.9 Output Total 995 4300 Balance 1297.8 -3720.1 PT 15.7 SEC (12.0-15.0) H 06/03/17 05:10 INR 1.23 (0.83-1.16) H 06/03/17 05:10 - Time Spent With Patient Time Spent With Patient: 35 min of time spent with patient, over half involved with coordination of care or counseling Physical Exam - Physical Exam General Appearance: alert, no apparent distress EENT: PERRL/EOMI, normal ENT inspection Neck: non-tender, full range of motion, supple, normal inspection Respiratory: crackles (Few basilar), No respiratory distress, No stridor, No wheezing Cardiac/Chest: normal peripheral pulses, regular rate, rhythm Peripheral Pulses: 2+: carotid (R), carotid (L), femoral (R), femoral (L), dorsalis-pedis (R), dorsalis-pedis (L) Abdomen: soft, No normal bowel sounds, No distended Male Genitalia: deferred Rectal: deferred Back: Normal inspection Skin: normal color, warm/dry Extremities: normal range of motion, non-tender, normal inspection, normal capillary refill Neuro/Psych: no motor/sensory deficits, alert, normal mood/affect, oriented x 3 ICD10 Worksheet Patient Problems: Problems Problem Status Onset Calculus of left kidney Acute Hypotension due to blood loss Acute Respiratory complication, post-procedure Acute Renal colic on right side Acute
[2017-06-04] MEDS ORDERED: BISACODYL 10 MG SUPP PR PRN (08:50)
[2017-06-04] MEDS ORDERED: MAGNESIUM HYDROXIDE 30 ML UDCUP PO PRN (08:50)
[2017-06-04] MEDS ORDERED: POLYETHYLENE GLYCOL 3350 17 GM PKT PO PRN (08:50)
[2017-06-04] MEDS ORDERED: LACTULOSE 20 GM/30 ML UDCUP PO PRN (08:50)
[2017-06-04] MEDS ORDERED: FUROSEMIDE 40 MG/4 ML VIAL IVP SCH (09:00)
[2017-06-04] MEDS: SENNOSIDES/DOCUSATE SODIUM TAB PO SCH ×2 (09:54→22:05)
--- NOTE | 2017-06-04 12:28 | HOSPPROG ---
Hospitalist Progress Note Assessment/Plan: Assessment: 71 yo w/ hemorrhagic shock s/p renal artery laceration and resultant retroperitoneal bleed s/p percutaneous IR ureteral stent placement for obstructive uropathy from ureteral stone Plan: # Hemorrhagic shock. Acute, 2/2 retroperitoneal hemorrhage s/p renal artery laceration -s/p coiling of the L renal artery by IR -CT w/ large hematoma, Hgb currently stable, hold on further imaging -weaned off pressors # Acute hypoxic respiratory failure. Evidenced by PaO2 60 while on 65% FiO2 (P: F 92, indicating severe acute lung injury), requiring intubation/positive pressure, likely 2/2 acute systolic CHF and shock -weaned off vent, cont on supp o2 # Acute systolic CHF exacerbation. Evidenced by Echo w/ EF 33%, pleural effusions on CXR, had good exercise tolerance prior to admission and EF 45-50% on review of outpt Echo from 04/03 -hx of bovine MVR -may have had myocardial stunning in setting of acute illness, will repeat Echo tomorrow AM -if EF remains low, will plan to get nuc stress prior to DC -net neg 3.7L o/n -cont lasix 20mg IV daily, monitor lytes # Acute pleural effusion. RLL on CXR, giving lasix # Ureteral stone. S/p removal, stent in place per IR, complicated by perforated ureter. - S/P IR perc internal stent placement - Complicated by laceration of branch of renal artery, s/p transcatheter embolization/coil - s/p 7 days Abx, stop now in setting of rash, will need to d/w Urology whether quinalone desired while patient has stent - per Dr. Cochran, will f/u in office in 3 weeks # Acute blood loss anemia. S/p 8u PRBC, 3u FFP, 2 plts - no additional blood product required today # DIC. Acute, in setting of above, resolved but w/ ongoing thrombocytopenia, cont to monitor # Ileus. Likely 2/2 sedation, no BMs - started on bowel regimen and PO intake today Diet. Clears Code. Full PPx. High risk, SCDs, off pharm given bleed Dispo. ADD uncertain, d/w Dr. Escamilla, agreed stable for transfer out of ICU High-level of medical complexity, high risk of worsening morbidity secondary to the issues as outlined above. Subjective: fatigue, no BM, rash Objective: Vital Signs Temp Pulse Resp BP Pulse Ox 37.0 C 77 24 H 112/64 93 06/04/17 08:00 06/04/17 12:00 06/04/17 12:00 06/04/17 12:00 06/04/17 12:00 Laboratory Results 06/04/17 04:32 06/04/17 04:32 06/03/17 06/04/17 06/05/17 05:59 05:59 05:59 Intake Total 2292.8 579.9 Output Total 995 4300 Balance 1297.8 -3720.1 PT 15.7 SEC (12.0-15.0) H 06/03/17 05:10 INR 1.23 (0.83-1.16) H 06/03/17 05:10 - Physical Exam Constitutional: no apparent distress, appears nourished, not in pain, No uncomfortable Cardiovascular: edema (1+ bilat LE), No systolic murmur, No irregularly irregular, No tachycardia Respiratory: reduced air movement (bilat bases), inspiratory crackles (bilat bases), No expiratory wheeze, No bronchial breath sounds, No respiratory distress Gastrointestinal: distension (mild), No normoactive bowel sounds (hypoactive bowel sounds), No tenderness, No guarding Skin: other (raised papular rash lower half of back, non-tender, blanching, no pustules) Neurologic: AAOx3, sensation intact bilaterally, No weakness Psychiatric: interacting appropriately, not anxious, not encephalopathic, thought process linear ICD10 Worksheet Patient Problems: Problems Problem Status Onset Renal colic on right side Acute Calculus of left kidney Acute Hypotension due to blood loss Acute Respiratory complication, post-procedure Acute
--- NOTE | 2017-06-04 14:01 | SOAPPROG ---
SOAP Progress Note Assessment/Plan: Assessment: Calculus of left kidney Acute treated and stent in post PCN, will continue and follow up in office in 3 weeks to address plan for removal Hypotension due to blood loss Acute stable Respiratory complication, post-procedure Acute off vent Renal colic on right side Acute stent in place Plan: continue ICU care, appreciate all input for pt critical care 06/04/17 14:00 Subjective: improving Objective: Vital Signs Temp Pulse Resp BP Pulse Ox 37.0 C 77 24 H 112/64 93 06/04/17 08:00 06/04/17 12:00 06/04/17 12:00 06/04/17 12:00 06/04/17 12:00 Laboratory Results 06/04/17 04:32 06/04/17 04:32 06/03/17 06/04/17 06/05/17 05:59 05:59 05:59 Intake Total 2292.8 579.9 Output Total 995 4300 950 Balance 1297.8 -3720.1 -950 PT 15.7 SEC (12.0-15.0) H 06/03/17 05:10 INR 1.23 (0.83-1.16) H 06/03/17 05:10 Physical Exam - Physical Exam General Appearance: alert Abdomen: soft Back: No CVA tenderness Neuro/Psych: alert ICD10 Worksheet Patient Problems: Problems Problem Status Onset Calculus of left kidney Acute Hypotension due to blood loss Acute Respiratory complication, post-procedure Acute Renal colic on right side Acute - ICD10 Problem Qualifiers (1) Hypotension due to blood loss (2) Respiratory complication, post-procedure
[2017-06-04] MEDS: MELATONIN 3 MG TAB PO SCH (22:04)
--- NOTE | 2017-06-04 22:21 | HOSPPROG ---
Hospitalist Progress Note Assessment/Plan: Called bedside for unstable vital signs Patient O2 requirement increased markedly through the early evening - originally 4L in mid 90's Now 80's on 10L NRB Patient denies increasing SOB, pleuritic pain or new cough - denies subjective fever or chills patient appears comfortable- no distress RRR diminished BS bilateral bases - rales isolate base on right normal BS no edema # Acute Hypoxic Respiratory failure- pt recently extubated without complication - oxygen saturations 90% on 10L STAT CXR (personally reviewed and interpreted) new right sided consolidation - atelectasis lower suspicion for PE currently based on history - IS - blood cultures now - start tx for hospital associated PNA - duonebs scheduled - RT - patient dsigned out to [facility] medicine coverage I spent > 35 minutes critical care time stabilizing and treating patient Subjective: feels weak - denies cough Objective: Vital Signs Temp Pulse Resp BP Pulse Ox 37.1 C 74 16 120/68 90 L 06/04/17 20:00 06/04/17 20:00 06/04/17 20:00 06/04/17 20:00 06/04/17 20:00 Laboratory Results 06/04/17 04:32 06/04/17 04:32 06/03/17 06/04/17 06/05/17 05:59 05:59 05:59 Intake Total 2292.8 579.9 700 Output Total 995 4300 1975 Balance 1297.8 -3720.1 -1275 PT 15.7 SEC (12.0-15.0) H 06/03/17 05:10 INR 1.23 (0.83-1.16) H 06/03/17 05:10 ICD10 Worksheet Patient Problems: Problems Problem Status Onset Calculus of left kidney Acute Hypotension due to blood loss Acute Respiratory complication, post-procedure Acute Renal colic on right side Acute
[2017-06-04] MEDS: CEFEPIME HCL 2 GM in STERILE WATER INJ 12.5 ML IV SCH (23:20)
[2017-06-05] MEDS: VANCOMYCIN 1.25 GM in D5W 250 ML IV SCH ×3 (00:01→23:52)
[2017-06-05 04:43] LABS: PLATELET COUNT 168 10^3/uL (150-400)
[2017-06-05] MEDS: CEFEPIME HCL 2 GM in STERILE WATER INJ 12.5 ML IV SCH (06:29)
[2017-06-05] MEDS: TAMSULOSIN HCL 0.4 MG CAP PO SCH (08:51)
[2017-06-05] MEDS: FUROSEMIDE 40 MG/4 ML VIAL IVP SCH (08:51)
[2017-06-05] MEDS: SENNOSIDES/DOCUSATE SODIUM TAB PO SCH ×2 (08:51→21:39)
--- NOTE | 2017-06-05 10:46 | HOSPPROG ---
Hospitalist Progress Note Assessment/Plan: Assessment: 71 yo w/ hemorrhagic shock s/p renal artery laceration and resultant retroperitoneal bleed s/p percutaneous IR ureteral stent placement for obstructive uropathy from ureteral stone, c/b sCHF, possible RLL HCAP, drug rash Plan: # Hemorrhagic shock. Acute, 2/2 retroperitoneal hemorrhage s/p renal artery laceration, required pressors/intubation -s/p coiling of the L renal artery by IR # Acute hypoxic respiratory failure. Weaned off vent, likely worsened o/n in setting of early HCAP # Possible health-care associated PNA. Increasing o2 needs last PM, CXR w/ RLL infiltration (personally interpreted) + leukocytosis -D#1 Vanco/Cefepime, adjust to Vanco/Meropenem given cephalosporin-rash -de-escalate Abx tomorrow if WBC normalized, o2 needs stable # Acute systolic CHF exacerbation. Evidenced by Echo w/ EF 33%, pleural effusions on CXR, had good exercise tolerance prior to admission and baseline EF 45-50% on review of outpt Echo from 04/03 -hx of bovine MVR -likely myocardial stunning in setting of acute illness, repeat Echo w/ improvement of EF to baseline, no further cardiac w/u indicated -net neg 1.2L o/n -increase to lasix 20mg IV bid, monitor lytes # Acute pleural effusion. RLL on CXR, giving lasix # Ureteral stone. S/p removal, stent in place per IR, complicated by perforated ureter. - S/P IR perc internal stent placement - Complicated by laceration of branch of renal artery, s/p transcatheter embolization/coil - per urology, will remove deleon and trial void tomorrow - per Dr. Cochran, will f/u in office in 3 weeks # Acute blood loss anemia. S/p 8u PRBC, 3u FFP, 2 plts # DIC. Acute, in setting of above, resolved but w/ ongoing thrombocytopenia, cont to monitor # Ileus. Likely 2/2 sedation, resolved # Drug rash. Suspect cephalosporin rash, worsened today s/p cefepime, avoid Diet. Regular Code. Full PPx. High risk, SCDs, off pharm given bleed Dispo. ADD uncertain, possible SNF High-level of medical complexity, high risk of worsening morbidity secondary to the issues as outlined above. Subjective: fatigued s/p eventful night, moved bowels Objective: Vital Signs Temp Pulse Resp BP Pulse Ox 36.9 C 61 16 103/62 90 L 06/05/17 07:38 06/05/17 07:38 06/05/17 07:38 06/05/17 07:38 06/05/17 07:38 Laboratory Results 06/05/17 04:20 06/05/17 04:20 06/04/17 06/05/17 06/06/17 05:59 05:59 05:59 Intake Total 579.9 700 765 Output Total 4300 1975 150 Balance -3720.1 -1275 615 PT 15.7 SEC (12.0-15.0) H 06/03/17 05:10 INR 1.23 (0.83-1.16) H 06/03/17 05:10 - Physical Exam Constitutional: no apparent distress, appears nourished, not in pain, No uncomfortable Cardiovascular: regular rate and rhythym, no murmur, rub, or gallop, edema ( trace bilat LE), No irregularly irregular Respiratory: reduced air movement (R lateral base), inspiratory crackles (R base ), No expiratory wheeze, No bronchial breath sounds Gastrointestinal: normoactive bowel sounds, soft, non-tender abdomen, no palpable masses, distension (mild) Skin: other (raised, blanching, non-pustulent rash w/ increased surface area from day prior, mcfp up back and wrapping around left side) Neurologic: AAOx3, sensation intact bilaterally, No weakness Psychiatric: interacting appropriately, not anxious, not encephalopathic, thought process linear ICD10 Worksheet Patient Problems: Problems Problem Status Onset Calculus of left kidney Acute Hypotension due to blood loss Acute Respiratory complication, post-procedure Acute Renal colic on right side Acute
--- NOTE | 2017-06-05 11:34 | ECHO ---
[email or web address] [address] Main: [phone] Fax: Transthoracic Echocardiogram Name: ROSALIO MAR MR#: [id number] Study Date: 06/05/2017 Study Time: 08:59 AM Date of : 1945 Age: 71 year(s) Height: 182.9 cm (72 in.) Weight: 93.89 kg (207 lb.) BSA: 2.16 m2 Gender: Male Examination: Limited Echo Indication: LTD follow up echo to reassess LVFX Image Quality: Adequate Contrast: Requested by: Giovanny Lopez BP: 103 mmHg/63 mmHg Heart Rate: Rhythm: Normal sinus rhythm Indication: LTD follow up echo to reassess LVFX Procedure Staff Conference Assistant: Rebecca Craig Physician: Preet Lopez Requesting Provider: Conclusions: Normal size left ventricle. Moderate concentric LV hypertrophy. Mildly reduced systolic LV function. The ejection fraction is estimated to be 45-50 %. Measurements: Chambers Valvular Assessment AV/MV Valvular Assessment TV/PV Normal Normal Normal Name Value Range Name Value Range Name Value Range IVSd (2D): 1.4 cm (0.6 cm-1.1 cm) LVDd (2D): 5.2 cm (4.2 cm-5.9 cm) LVDs (2D): 4.2 cm (2.1 cm-4 cm) LVPWd (2D): 1.2 cm (0.6 cm-1 cm) LVEF (BP): 45 % (>=55 %) EF Range: 45-50 % Continued Measurements: Findings: Left Ventricle: Normal size left ventricle. Moderate concentric LV hypertrophy. Mildly reduced systolic LV function. The ejection fraction is estimated to be 45-50 %. Patient: ROSALIO MAR Study Date: 06/05/2017 Page 1 of 2 08:59 AM (No Signature Object) Patient: ROSALIO MAR Study Date: 06/05/2017 Page 2 of 2 08:59 AM [id number]
[2017-06-05] MEDS: DIPHENHYDRAMINE CREAM TP PRN ×2 (12:16→18:16)
[2017-06-05] MEDS: HYDROCORTISONE 1% CREAM TP PRN (12:17)
--- NOTE | 2017-06-05 12:33 | ASMTCMCOM ---
CM Note CM Note Notes: PT recommending HC w/24 hr supervision at this point. Pt lives at home w/supportive . Pt has PNA now, high O2 needs, not close to dc. CM will continure to follow; DC plan: likely home w/ and HHC. Date Signed: 06/05/2017 12:32 PM Electronically Signed By:Yas Jones RN
--- NOTE | 2017-06-05 14:27 | SOAPPROG ---
SOAP Progress Note Assessment/Plan: Assessment: Left renal calculus- status post PCN, ureteral injury. Stent retained. Plan: Will plan on catheter removal in AM. If unable to void, will request RN to replace deleon catheter. 06/05/17 14:26 Subjective: Feels better than yesterday although slept poorly. Objective: Vital Signs Temp Pulse Resp BP Pulse Ox 37.2 C 66 16 121/64 H 91 L 06/05/17 11:30 06/05/17 11:30 06/05/17 11:30 06/05/17 11:30 06/05/17 11:30 Laboratory Results 06/05/17 04:20 06/05/17 04:20 06/04/17 06/05/17 06/06/17 05:59 05:59 05:59 Intake Total 579.9 700 765 Output Total 4300 1975 1000 Balance -3720.1 -1275 -235 PT 15.7 SEC (12.0-15.0) H 06/03/17 05:10 INR 1.23 (0.83-1.16) H 06/03/17 05:10 Physical Exam - Physical Exam General Appearance: alert, no apparent distress Respiratory: No respiratory distress Cardiac/Chest: regular rate, rhythm Abdomen: non-tender, soft Male Genitalia: other (catheter draining clear urine) Skin: normal color, warm/dry ICD10 Worksheet Patient Problems: Problems Problem Status Onset Calculus of left kidney Acute Hypotension due to blood loss Acute Respiratory complication, post-procedure Acute Renal colic on right side Acute
[2017-06-05] MEDS: MEROPENEM 1 GM in STERILE WATER INJ 20 ML IV SCH ×2 (14:54→21:39)
[2017-06-05] MEDS ORDERED: FUROSEMIDE 40 MG/4 ML VIAL IVP SCH (15:00)
[2017-06-05] MEDS: FUROSEMIDE 20 MG/2 ML VIAL IVP SCH (15:07)
[2017-06-05] MEDS: MELATONIN 3 MG TAB PO SCH (21:40)
[2017-06-06 05:44] LABS: PLATELET COUNT 207 10^3/uL (150-400)
[2017-06-06] MEDS: MEROPENEM 1 GM in STERILE WATER INJ 20 ML IV SCH ×2 (05:49→13:40)
[2017-06-06] MEDS: FUROSEMIDE 20 MG/2 ML VIAL IVP SCH ×2 (08:56→15:04)
[2017-06-06] MEDS: TAMSULOSIN HCL 0.4 MG CAP PO SCH (08:56)
[2017-06-06] MEDS: SENNOSIDES/DOCUSATE SODIUM TAB PO SCH ×2 (08:56→20:12)
[2017-06-06] MEDS: HYDROCORTISONE 1% CREAM TP PRN (09:05)
--- NOTE | 2017-06-06 09:38 | SOAPPROG ---
SOAP Progress Note Assessment/Plan: Assessment: Calculus of left kidney Acute treated and stent in post PCN, will continue and follow up in office in 3 weeks to address plan for removal Hypotension due to blood loss Acute stable Respiratory complication, post-procedure Acute off vent Renal colic on right side Acute stent in place Plan: DC deleon and dc plans per hospitalist 06/06/17 09:37 Subjective: not seen Objective: Vital Signs Temp Pulse Resp BP Pulse Ox 36.9 C 63 16 112/66 92 06/06/17 07:14 06/06/17 07:14 06/06/17 07:14 06/06/17 07:14 06/06/17 07:14 Laboratory Results 06/06/17 04:40 06/06/17 04:40 06/05/17 06/06/17 06/07/17 05:59 05:59 05:59 Intake Total 700 1065 Output Total 1975 2450 Balance -1275 -1385 PT 15.7 SEC (12.0-15.0) H 06/03/17 05:10 INR 1.23 (0.83-1.16) H 06/03/17 05:10 Physical Exam - Physical Exam General Appearance: other (not done) ICD10 Worksheet Patient Problems: Problems Problem Status Onset Calculus of left kidney Acute Hypotension due to blood loss Acute Respiratory complication, post-procedure Acute Renal colic on right side Acute - ICD10 Problem Qualifiers (1) Hypotension due to blood loss (2) Respiratory complication, post-procedure
[2017-06-06] MEDS: VANCOMYCIN 1.25 GM in D5W 250 ML IV SCH (13:39)
[2017-06-06] MEDS ORDERED: IOPAMIDOL (ISOVUE 370) 100 ML BTL IV ONE (15:10)
[2017-06-06] MEDS ORDERED: HEPARIN 10,000 UNIT/10 ML MDV (1,000 UNIT/ML) IVP ONE (16:47)
--- NOTE | 2017-06-06 16:55 | HOSPPROG ---
Hospitalist Progress Note Assessment/Plan: * Hemorrhagic shock due to renal artery laceration with retroperitoneal bleed -s/p embolization left renal artery * Acute respiratory failure s/p extubation * Acute PE -reviewed with Dr. Shah - IV heparin ok -suspect will be tolerated due to adequate bleeding control by IR -doubt HCAP - infiltrates c/w pulmonary infarct - DC abx * Acute systolic CHF - EF 33% - now improved - ? stunning * Bovine MVR * Ureteral stone s/p stent, complicated by perforated ureter/renal artery laceration * Acute blood loss anemia s/p massive transfusion Subjective: Very SOB with desats when he ambulates Objective: Vital Signs Temp Pulse Resp BP Pulse Ox 36.8 C 82 16 117/55 L 90 L 06/06/17 15:37 06/06/17 15:37 06/06/17 15:37 06/06/17 15:37 06/06/17 15:37 Laboratory Results 06/06/17 04:40 06/06/17 04:40 06/05/17 06/06/17 06/07/17 05:59 05:59 05:59 Intake Total 700 1065 Output Total 1975 2450 850 Balance -1275 -1385 -850 PT 15.7 SEC (12.0-15.0) H 06/03/17 05:10 INR 1.23 (0.83-1.16) H 06/03/17 05:10 CTA chest - moderate PE with pulmonary infarct CT reviewed in detail with Dr. Butts CXR viewed, my personal interpretation is - minimal infiltrate - Time Spent With Patient Time Spent with Patient: greater than 35 minutes Time Spent with Patient: Greater than 35 minutes spent on this patients care, greater than 50% of time spent counseling, educating, and coordinating care regarding the above mentioned plan. - Physical Exam Constitutional: no apparent distress, appears nourished, not in pain Cardiovascular: regular rate and rhythym, no murmur, rub, or gallop Respiratory: no rales or rhonchi, clear to auscultation, respiratory distress Gastrointestinal: normoactive bowel sounds, soft, non-tender abdomen, no palpable masses Skin: no rashes or abrasions, no fluctuance, no induration Neurologic: AAOx3, sensation intact bilaterally Psychiatric: interacting appropriately, not anxious, not encephalopathic, thought process linear ICD10 Worksheet Patient Problems: Problems Problem Status Onset Calculus of left kidney Acute Hypotension due to blood loss Acute Respiratory complication, post-procedure Acute Renal colic on right side Acute
--- NOTE | 2017-06-06 17:31 | ASMTCMCOM ---
CM Note CM Note Notes: Reviewed chart regarding discharge plan, pt's progress. Per MD notes, pt may be able to discharge home w/ Home Health Care. Per Emelina RN, pt w/ new dx of a PE. PT/OT cont to rec inpatient rehab. LVM for Alison Cardoza xt [phone] to eval on Thursday06/08/17. Discharge needs remain unclear at this time. CM will cont to follow. Current Discharge Plan: To be determined Date Signed: 06/06/2017 05:31 PM Electronically Signed By:Dulce Barajas RN
[2017-06-06] MEDS: HEPARIN/DEXTROSE 500 ML IV SCH (18:05)
[2017-06-06 18:46] LABS: INR 1.18 (0.83-1.16); PROTIME(PATIENT) 15.2 SEC (12.0-15.0)
[2017-06-06] MEDS: MELATONIN 3 MG TAB PO SCH (20:13)
[2017-06-06] MEDS ORDERED: VANCOMYCIN HCL/NORMAL SALINE 250 ML IV SCH (21:00)
[2017-06-07] MEDS: HEPARIN 10,000 UNIT/10 ML MDV (1,000 UNIT/ML) IVP PRN ×2 (03:34→18:28)
[2017-06-07 05:21] LABS: PLATELET COUNT 237 10^3/uL (150-400)
[2017-06-07] MEDS: TAMSULOSIN HCL 0.4 MG CAP PO SCH (09:56)
[2017-06-07] MEDS: SENNOSIDES/DOCUSATE SODIUM TAB PO SCH ×2 (09:56→21:11)
[2017-06-07] MEDS ORDERED: PROTOCOL POTASSIUM 1 DOSE MISC PRN (10:10)
[2017-06-07] MEDS ORDERED: WARFARIN SODIUM 5 MG TAB PO ONE (16:00)
[2017-06-07] MEDS: HYDROCORTISONE 1% CREAM TP PRN (16:28)
[2017-06-07] MEDS ORDERED: SODIUM CL NASAL 45 ML BTL EACHNARE PRN (17:08)
--- NOTE | 2017-06-07 17:41 | HOSPPROG ---
Hospitalist Progress Note Assessment/Plan: * Hemorrhagic shock due to renal artery laceration with retroperitoneal bleed -s/p embolization/coil left renal artery * Acute respiratory failure s/p extubation * Acute PE -reviewed with Dr. Shah - anticoagulation ok -H/H stable on IV heparin -start warfarin * Acute systolic CHF - EF 33% - now improved - ? 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 Night nurse who knows him well reported new onset aphasia, word substitutions Objective: Vital Signs Temp Pulse Resp BP Pulse Ox 36.8 C 71 16 130/76 H 95 06/07/17 16:00 06/07/17 16:00 06/07/17 16:00 06/07/17 16:00 06/07/17 16:00 Laboratory Results 06/07/17 04:46 06/07/17 04:46 06/06/17 06/07/17 06/08/17 05:59 05:59 05:59 Intake Total 1065 1250 Output Total 2450 1650 250 Balance -1385 -1650 1000 PT 15.2 SEC (12.0-15.0) H 06/06/17 17:57 INR 1.18 (0.83-1.16) H 06/06/17 17:[address] - negative - Physical Exam Constitutional: no apparent distress, appears nourished, not in pain Cardiovascular: regular rate and rhythym, no murmur, rub, or gallop Respiratory: no respiratory distress, no rales or rhonchi, clear to auscultation Gastrointestinal: normoactive bowel sounds, soft, non-tender abdomen, no palpable masses Skin: no rashes or abrasions, no fluctuance, no induration Neurologic: AAOx3, sensation intact bilaterally Psychiatric: interacting appropriately, not anxious, not encephalopathic, thought process linear ICD10 Worksheet Patient Problems: Problems Problem Status Onset Calculus of left kidney Acute Hypotension due to blood loss Acute Respiratory complication, post-procedure Acute Renal colic on right side Acute
[2017-06-07] MEDS ORDERED: POTASSIUM CL 10 MEQ TAB PO ONE (18:23)
[2017-06-07] MEDS: MELATONIN 3 MG TAB PO SCH (21:11)
[2017-06-07] MEDS: HEPARIN/DEXTROSE 500 ML IV SCH (21:45)
[2017-06-08 05:24] LABS: PLATELET COUNT 273 10^3/uL (150-400)
[2017-06-08 05:31] LABS: INR 1.17 (0.83-1.16); PROTIME(PATIENT) 15.1 SEC (12.0-15.0)
[2017-06-08] MEDS ORDERED: POTASSIUM CL 10 MEQ TAB PO ONE (08:08)
[2017-06-08] MEDS: SENNOSIDES/DOCUSATE SODIUM TAB PO SCH ×2 (08:46→21:31)
[2017-06-08] MEDS: TAMSULOSIN HCL 0.4 MG CAP PO SCH (08:46)
[2017-06-08] MEDS: HEPARIN 10,000 UNIT/10 ML MDV (1,000 UNIT/ML) IVP PRN (08:55)
[2017-06-08] MEDS: HEPARIN/DEXTROSE 500 ML IV SCH (10:45)
[2017-06-08] MEDS ORDERED: WARFARIN SODIUM 5 MG TAB PO ONE (16:00)
[2017-06-08] MEDS ORDERED: FLUMAZENIL 0.5 MG/5 ML MDV IVP PRN (17:26)
[2017-06-08] MEDS ORDERED: fentaNYL 100 MCG/2 ML INJ IVP PRN (17:26)
[2017-06-08] MEDS ORDERED: MEPERIDINE 25 MG/ML SYR IVP PRN (17:26)
[2017-06-08] MEDS ORDERED: NALOXONE HCL 0.4 MG/ML INJ IVP PRN (17:26)
[2017-06-08] MEDS ORDERED: MIDAZOLAM 2 MG/2 ML VIAL IVP PRN (17:26)
[2017-06-08] MEDS ORDERED: NS 1,000 ML IV SCH (17:30)
--- NOTE | 2017-06-08 17:33 | ASMTCMCOM ---
CM Note CM Note Notes: PT recommending HHC. OT & MD recommending Inpt Rehab. Order placed for Inpt Rehab. CM will continue to follow. Date Signed: 06/08/2017 05:32 PM Electronically Signed By:Shanda Luu RN
[2017-06-08] MEDS ORDERED: IOPAMIDOL (ISOVUE-300) 100 ML BTL ONE (18:53)
--- NOTE | 2017-06-08 20:13 | HOSPPROG ---
Hospitalist Progress Note Assessment/Plan: NEW PATIENT TO ME ON May CRITICAL CARE NOTE, TOTAL BEDSIDE CRITICAL CARE TIME TODAY GREATER THAN 80 MIN The patient started having significant gross hematuria today and was feeling mildly lightheaded. As I assessed the patient his urine output consists of severe gross hematuria that has appearance not too far from venous blood in terms of redness color and opacity. I did not see clots in the patient appears to be emptying his bladder well by symptoms. He has no urologic pain at this time. He he does not have any worsening of his respirations and does not have any angina or palpitations at this time. Also I did reviewed in detail with his nurses today his heparin dosing and his heparin levels over the last couple days. He has been receiving intravenous heparin drip and the nurses have been continue increasing the drip rate per protocol based on the blood tests but he has not had significant increases in heparin level which remained at 0.2 despite a dose of 2500 units/hour. Dr. Salguero and I reviewed the heparin bag, the drip rates, the documentation of the lab data and the dosing etc to ensure that the protocols were being followed proper in the want any medication errors, and we did not see any specific errors. On assessment the patient's blood pressure and pulse have remained stable those had some faster respiratory rates. He appears reasonably relaxed. He has has pale skin but it is warm and dry with slightly decreased capillary refill. His respirations are a bit rapid but not labored and his lungs have diminished but otherwise clear sounds for the most part. His heart is regular without any new murmurs. His abdomen is nondistended nontender. He does have severe pitting edema of both legs from the knees down to the distal feet. His mentation is good. His laboratory data reviewed this morning show persistence of anemia with hemoglobin of 8.5 slightly decreased from yesterday. Notably this was from several hours before he started bleeding today. I reviewed the patient's case in detail with him and his at the bedside. I also reviewed his situation in detail with doctors Brant Cochran and Tsering Salguero. I reviewed all of his cardiology data and studies. At this point the patient is in the unfortunate situation being caught between bleeding and thrombus. If he has ongoing bleeding, he could easily fall into severe enough anemia to require transfusions which recently was the case when he had retroperitoneal bleeding, and he ended up with acute respiratory failure and intubation from pulmonary edema. He does have reduced cardiac ejection fraction. In addition we have significant suspicion for him having significant coronary disease as the cause of his cardiac failure, and worsening anemia could potentially precipitate myocardial infarction. If we stop his heparin it may be very helpful for his bleeding, however he has acute pulmonary emboli and DVTs and is at risk for or severe debility from recurrent PE. In addition it is unclear to me why we have the highest allowable dose of IV heparin with markedly subtherapeutic heparin levels. This also occurring in the setting of acute bleeding. There is some concern about a possible stroke and I would be very worried about hemorrhage into the brain as well as hemorrhage in other places. Yet again with acute PEs I am concerned that we do not have therapeutic heparin levels and are we truly protecting him from PE. There is also the concern that the patient could develop urinary outflow obstruction, which sometimes requires surgical intervention. In the setting of his multiple acute illnesses this would be a fairly high risk procedure. Dr. cochran's assessment is that the bleeding is most likely from the bladder and prostate due to his recent Barboza catheter, however could not rule out recurrent ureteral bleeding or renal bleeding. My recommendation, which which I reviewed with doctors Jose M and Dimas and with which they agreed, is to stop his anticoagulation at this time and place an IVC filter. We can therefore have him protect against PE, and hopefully this will cause his urinary bleeding to stop. If it does not, we may need to consider surgical assessment and treatment for the bleeding. I have discussed all of this with the interventional radiology team and ordered IVC filter placement, and I have discontinued his heparin order at this time. There plans today to have him do cardiac stress testing with myocardial perfusion imaging to assess his coronaries and to again attempt to get brain MRI to assess for the possibility of stroke. At this point I am going to delay these procedures while we deal with the bleeding issue and get that stabilized. I will hope to proceed with these other studies tomorrow. DIAGNOSES: # ACUTE NEW ONSET GROSS HEMATURIA TODAY # FAILURE TO ACHIEVE ADEQUATE HEPARIN LEVELS DESPITE HIGHEST LEVEL DOSE OF INTRAVENOUS HEPARIN Previous diagnoses still being assessed and treated: * Hemorrhagic shock due to renal artery laceration with retroperitoneal bleed -s/p embolization/coil left renal artery * Acute respiratory failure s/p extubation with pulmonary edema * Acute PE * Acute systolic CHF - EF 33% - now improved - ? 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 * New aphasia, currently resolved -attempting MRI brain r/o CVA * Bovine MVR * Ureteral stone s/p stent, complicated by perforated ureter/renal artery laceration * Acute blood loss anemia s/p massive transfusion Objective: Vital Signs Temp Pulse Resp BP Pulse Ox 37.3 C 68 16 130/73 H 93 06/08/17 19:56 06/08/17 19:56 06/08/17 19:56 06/08/17 19:56 06/08/17 19:56 Laboratory Results 06/08/17 04:28 06/08/17 19:38 06/07/17 06/08/17 06/09/17 06:59 06:59 06:59 Intake Total 2228 Output Total 1650 250 200 Balance -1650 1978 -200 PT 15.1 SEC (12.0-15.0) H 06/08/17 04:28 INR 1.17 (0.83-1.16) H 06/08/17 04:28 ICD10 Worksheet Patient Problems: Problems Problem Status Onset Calculus of left kidney Acute Hypotension due to blood loss Acute Respiratory complication, post-procedure Acute Renal colic on right side Acute
[2017-06-08] MEDS: MELATONIN 3 MG TAB PO SCH (21:32)
[2017-06-09 05:38] LABS: PLATELET COUNT 283 10^3/uL (150-400)
[2017-06-09 05:50] LABS: INR 1.18 (0.83-1.16); PROTIME(PATIENT) 15.2 SEC (12.0-15.0)
--- NOTE | 2017-06-09 09:01 | GCON ---
[f rep st] CONSULTATION HEMATOLOGY CONSULTATION REQUESTING PHYSICIAN: Juan Martinez MD. REASON FOR CONSULTATION: Anticoagulation management, PE, bleeding. HISTORY OF PRESENT ILLNESS: The patient is a 71-year-old gentleman, who was admitted for nephrolithiasis 05/30/17, and has had a very complicated hospital course. He underwent intervention for a left ureteral stone, which was complicated by ureteral injury and a laceration of a branch of the renal artery , which resulted in a retroperitoneal bleed. Renal artery coil embolization was performed. He has a ureteral stent now. He had hemorrhagic shock related to the retroperitoneal bleed. He had acute respiratory failure requiring intubation. He had what was felt to be acute CHF, with an EF of 33%, which has since improved to 45% to 50% (06/05/2017). He had a CT angiogram 06/06/2017, which demonstrated moderate-volume PEs bilaterally, with possible pulmonary infarcts and right heart strain. Right lower extremity Doppler demonstrated a short- segment peroneal vein DVT. No left lower extremity ultrasound. He was started on heparin. Heparin levels have all been subtherapeutic with the exception of one early this morning (0030, 0.48). His heparin drip has been steadily increased to its current level of 2500 units/hour (28 units/kg per hour). This afternoon, he developed gross hematuria. He and his report what sounds to be an intracardiac thrombus related to valvular heart disease in 2004. He had a porcine aortic valve replacement by Dr. Grimes at that time. He has had no other clots. No family history of clots. I reviewed his heparin dosing, pump settings, etc. with his nurse and the pharmacist. PAST MEDICAL HISTORY: 1. Coronary artery disease. 2. History of cardiac arrest, they report related to the intracardiac thrombus and valvular disease, 2004. 3. Nephrolithiasis. 4. Dyslipidemia. PAST SURGICAL HISTORY: 1. Porcine aortic valve replacement, 2004. 2. Tonsillectomy. SOCIAL HISTORY: He is . 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 He worked at the [employer] for many years. FAMILY HISTORY: He has a son and a daughter. His daughter has had 2 biologic children, and no history of thromboembolic events. No bleeding disorders. REVIEW OF SYSTEMS: CONSTITUTIONAL: Fatigue. HEMATOLOGIC: Hematuria as above. No other bruising or bleeding. RESPIRATORY: Mild dyspnea. No pleurisy. CARDIOVASCULAR: Bilateral lower extremity edema during this hospitalization. NEUROLOGIC: Yesterday, he was having some word-finding difficulty. No headache. No specific weakness. IMAGING STUDIES: Noncontrast head CT was negative. MRI was not performed due to needing to clarify his embolization coils. PHYSICAL EXAM: VITAL SIGNS: Blood pressure 122/73, heart rate 66, respirations 14, 94% on 2 L, afebrile. GENERAL: Very pleasant gentleman in no acute distress. He is alert, oriented, and has fluent speech. His and sister-in- law are present. HEENT: No scleral icterus. CARDIOVASCULAR: Regular rate and rhythm. Bilateral lower extremity edema. No calf tenderness on palpation. LUNGS : A few crackles in the bases bilaterally. ABDOMEN: Soft, nontender, nondistended. SKIN: No ecchymoses, petechiae. No oozing from right antecubital IV site. NEUROLOGIC: Grossly nonfocal. LABORATORY DATA: White blood count 11.7, hemoglobin 8.5, MCV 91.8, platelets 273,000. Hemoglobin 8.8 yesterday, 9.0 (06/06/2017), 8.7 (06/05/2017). It appears the last transfusion was 05/30/2017. Creatinine 1.1. Baseline PTT 24.6 ( 06/06/2017). PT slightly elevated at 15.2, INR 1.18. Heparin levels as above. 0.23 (1410 today). IMPRESSION AND RECOMMENDATIONS: 1. Gross hematuria: Dr. Martinez is discussing with Urology. The pace of his bleeding is unclear. Hemoglobin is essentially stable at least today, but he will need followup values to determine the amount of blood loss. Given the concerns regarding volume overload with transfusions given his recent history, after discussing the risks and benefits, he will have a temporary inferior vena cava filter placed, and heparin discontinued while this is being sorted out. Dr. Martinez discussed the procedure at length with the patient and his , and I discussed it with them as well. Systemic anticoagulation may be able to be resumed depending on his hematuria and stability of his hemoglobin. 2. Subtherapeutic heparin levels: Clinically, this is consistent with at least some degree of heparin resistance. He has no personal or family history to suggest antithrombin deficiency. This would be an unusual presentation at his age. Heparin resistance can also be associated with increased heparin clearance , increased heparin binding proteins, and elevated fibrinogen levels. Patients over 65 are more likely to require higher doses of heparin. There do not appear to be any dosing or administration errors. He does not have a central line that might influence results (dilute samples, etc.). As heparin itself can lower antithrombin levels, checking that at this point, will not be particularly helpful unless it is significantly low. I will order a fibrinogen and antithrombin level for tomorrow. Depending how long he is off heparin, another antithrombin level could be drawn if needed. In the setting of high risk of bleeding, heparin would certainly be the preferred agent, given its half-life and ability to discontinue quickly, rather than Lovenox or a novel oral anticoagulant. /[id number]/MODL MTDD
[2017-06-09] MEDS: TAMSULOSIN HCL 0.4 MG CAP PO SCH (09:27)
[2017-06-09] MEDS: SENNOSIDES/DOCUSATE SODIUM TAB PO SCH (09:27)
--- NOTE | 2017-06-09 13:01 | SOAPPROG ---
SOAP Progress Note Assessment/Plan: Assessment: Left renal calculus- status post PCN, ureteral injury. Stent retained. Gross hematuria Plan: Hematuria level has improved from marcie blood to tea colored today. Will recommend anticoagulation be held through tomorrow and then restarted if appropriate with hospitalist/heme. If patient has increase in hematuria will arrange cystoscopy with possible clot evacuation in the OR. Discussed with Dr Cochran. 06/09/17 12:59 Subjective: Tea colored urine today Objective: Vital Signs Temp Pulse Resp BP Pulse Ox 36.3 C 69 22 H 112/65 94 06/09/17 11:33 06/09/17 11:33 06/09/17 11:33 06/09/17 11:33 06/09/17 11:33 Laboratory Results 06/09/17 04:53 06/09/17 04:53 06/08/17 06/09/17 06/10/17 05:59 05:59 05:59 Intake Total 2228 300 Output Total 250 1425 Balance 1977 -1124 PT 15.2 SEC (12.0-15.0) H 06/09/17 04:53 INR 1.18 (0.83-1.16) H 06/09/17 04:53 Physical Exam - Physical Exam General Appearance: alert, no apparent distress Neck: normal inspection Respiratory: normal breath sounds, No respiratory distress Skin: normal color, warm/dry Neuro/Psych: alert ICD10 Worksheet Patient Problems: Problems Problem Status Onset Calculus of left kidney Acute Hypotension due to blood loss Acute Respiratory complication, post-procedure Acute Renal colic on right side Acute
--- NOTE | 2017-06-09 15:41 | PDIAF ---
- Diagnosis Diagnosis: acute encephalopathy Code Status: Full Code - Medication Management Discharge Medications: Medications to Continue on Transfer Amoxicillin 2,000 mg PO AD PRN 12/03/16 [Last Taken Unknown] Atorvastatin Calcium [Lipitor 10 mg (*)] 10 mg PO HS 12/03/16 [Last Taken ] Herbals/Supplements -Info Only 1 each PO DAILY 12/03/16 [Last Taken Unknown] Discharge Medications: Refer to the Discharge Home Medication list for PRN reason. - Orders Services needed: Registered Nurse, Certified Reactor Service Operator, Master Computer Systems Security Administrator , Physical Therapy, Occupational Therapy Diet Recommendation: no restrictions on diet Diet Texture: Regular Texture Diet, Non Oral Meds Activity/Weight Bearing Restrictions: full wt bear - Follow Up Care Current Providers and Referrals: Reji Hawley MD [Primary Care Provider] - follow up in 1 week (for stent removal )
--- NOTE | 2017-06-09 18:25 | HOSPPROG ---
Hospitalist Progress Note Assessment/Plan: NEW PATIENT TO ME ON May DIAGNOSES: * gross hematuria, suspect bladder or prostate bleeding in the setting of anticoagulant -bleeding has stopped now since yesterday off of anticoagulant * Hemorrhagic shock due to renal artery laceration with retroperitoneal bleed -s/p embolization/coil left renal artery * Acute respiratory failure s/p extubation with pulmonary edema * Acute PE: -Currently off anticoagulant due to his gross hematuria, IVC filter placed on 06/08 * Acute systolic CHF - EF 33% - now improved - ? 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 * New aphasia, currently resolved -attempting MRI brain r/o CVA * Bovine MVR * Ureteral stone s/p stent, complicated by perforated ureter/renal artery laceration * Acute blood loss anemia s/p massive transfusion I reviewed the patient's clinical status, progress in last 24 hr and care plan in detail the patient and his at the bedside, and also with Fouzia Schmidt of Urology and Dr. Munoz of hematology PLANS: -continue off anticoagulation with filter in place at this time -reassess tomorrow and consider resuming anticoagulation tomorrow if not bleeding -waiting for Dr. Munoz and Salguero to further review anticoagulation options given the difficulty with the low heparin levels on high doses yesterday -continue current management of other respiratory issues and heart issues -will delay the cardiac stress test until all the above issues are resolved -MRI of brain results from radiologist pending, I do not see any acute abnormalities but will review with patient when I have the final result -continue PT and OT SUBJECTIVE: Patient is notice that his urine is now clear but dark tea-colored. He has no difficulty emptying his bladder and no urinary pain or discomfort otherwise Breathing is stable still with exertional dyspnea but feels good at rest OBJECTIVE Vitals reviewed: Still tachypneic on oxygen, but respirations actually look somewhat relaxed, vitals otherwise stable without fever It Applications Developer, my review: Sinus Exam: alert oriented skin warm dry color ok resps not labored though remain tachypneic on oxygen lungs clear BSs heart regular abd soft nondistended nontender, bowel sounds present limbs warm, still with a fair bit of leg edema bilaterally I did examine his urine and it is indeed now without any red discoloration but is dark tea colored and clear consistent with treatment from old blood iv site ok Laboratory data: Hemoglobin stable at 8.8, rest of CBC unchanged Potassium stable MRI of brain without contrast today, my personal review of the images: I do not see anything that looks like an acute or subacute stroke, hemorrhage, mass. There are a few subcortical densities that likely represent microvascular disease but I am waiting for the radiology report. Objective: Vital Signs Temp Pulse Resp BP Pulse Ox 36.3 C 72 26 H 114/70 91 L 06/09/17 16:00 06/09/17 16:00 06/09/17 16:00 06/09/17 16:00 06/09/17 16:00 Laboratory Results 06/09/17 04:53 06/09/17 04:53 06/08/17 06/09/17 06/10/17 06:59 06:59 06:59 Intake Total 2228 300 Output Total 250 1425 700 Balance 19775 - PT 15.2 SEC (12.0-15.0) H 06/09/17 04:53 INR 1.18 (0.83-1.16) H 06/09/17 04:53 - Time Spent With Patient Time Spent with Patient: greater than 35 minutes Time Spent with Patient: Greater than 35 minutes spent on this patients care, greater than 50% of time spent counseling, educating, and coordinating care regarding the above mentioned plan. ICD10 Worksheet Patient Problems: Problems Problem Status Onset Calculus of left kidney Acute Hypotension due to blood loss Acute Respiratory complication, post-procedure Acute Renal colic on right side Acute
--- NOTE | 2017-06-09 18:36 | SOAPPROG ---
CESAR Progress Note Assessment/Plan: Assessment: 1. Gross hematuria-improved today with cessation of anticoagulation yesterday. Urology considering cysto tomorrow to try to identify bleeding source. 2. Acute PE-IVC filter placed yesterday in light of hematuria. 3. Relative heparin resistance-maybe secondary to high fibrinogen? ATIII level pending. May be low in acute setting. Anticipate resuming heparin when urology clears. 4. Renal artery laceration with retroperitoneal bleed-s/p embolization and coil of left renal artery. 5. ? Changes in MS-MRI today Plan: 06/09/17 18:35 06/09/17 18:37 Subjective: still with hematuria, but improved Objective: Vital Signs Temp Pulse Resp BP Pulse Ox 36.3 C 72 26 H 114/70 91 L 06/09/17 16:00 06/09/17 16:00 06/09/17 16:00 06/09/17 16:00 06/09/17 16:00 Laboratory Results 06/09/17 04:53 06/09/17 04:53 06/08/17 06/09/17 06/10/17 05:59 05:59 05:59 Intake Total 2228 300 Output Total 250 1425 700 Balance 1977 -1125 -700 PT 15.2 SEC (12.0-15.0) H 06/09/17 04:53 INR 1.18 (0.83-1.16) H 06/09/17 04:53 Physical Exam - Physical Exam General Appearance: alert Respiratory: lungs clear Abdomen: soft ICD10 Worksheet Patient Problems: Problems Problem Status Onset Calculus of left kidney Acute Hypotension due to blood loss Acute Respiratory complication, post-procedure Acute Renal colic on right side Acute
[2017-06-09] MEDS: HYDROCORTISONE 1% CREAM TP PRN (20:46)
[2017-06-09] MEDS ORDERED: POTASSIUM CL 10 MEQ TAB PO ONE ×2 (21:30)
[2017-06-09] MEDS: MELATONIN 3 MG TAB PO SCH (21:49)
[2017-06-10] MEDS: SENNOSIDES/DOCUSATE SODIUM TAB PO SCH ×3 (01:29→22:37)
[2017-06-10 05:38] LABS: PLATELET COUNT 307 10^3/uL (150-400)
[2017-06-10 05:58] LABS: INR 1.18 (0.83-1.16); PROTIME(PATIENT) 15.2 SEC (12.0-15.0)
[2017-06-10] MEDS: TAMSULOSIN HCL 0.4 MG CAP PO SCH (09:29)
--- NOTE | 2017-06-10 10:38 | SOAPPROG ---
SOAP Progress Note Assessment/Plan: Assessment: Left renal calculus- status post PCN, ureteral injury. Stent retained. Gross hematuria Palpable mass in left inguinal canal Plan: Hematuria level has improved-- will hold off on cystoscopy. Reviewed CT that showed possible blood products in left inguinal canal. Will repeat exam tomorrow. Discussed with Dr Cochran. 06/10/17 10:37 Subjective: LLQ pain tea colored urine Objective: Vital Signs Temp Pulse Resp BP Pulse Ox 36.9 C 67 27 H 129/72 H 92 06/10/17 07:13 06/10/17 07:13 06/10/17 07:13 06/10/17 07:13 06/10/17 07:13 Microbiology 06/04/17 23:20 Blood Culture - Final Blood 06/04/17 23:20 Blood Culture - Final Blood Laboratory Results 06/10/17 04:49 06/10/17 04:49 06/09/17 06/10/17 06/11/17 05:59 05:59 05:59 Intake Total 300 Output Total 1425 1200 220 Balance -1125 -1200 -220 PT 15.2 SEC (12.0-15.0) H 06/10/17 04:49 INR 1.18 (0.83-1.16) H 06/10/17 04:49 Physical Exam - Physical Exam General Appearance: alert, No no apparent distress Respiratory: normal breath sounds, No respiratory distress Male Genitalia: other (palpable mass left inguinal canal- not able to reduce) ICD10 Worksheet Patient Problems: Problems Problem Status Onset Calculus of left kidney Acute Hypotension due to blood loss Acute Respiratory complication, post-procedure Acute Renal colic on right side Acute
[2017-06-10] MEDS ORDERED: POTASSIUM CL 10 MEQ TAB PO ONE ×2 (11:05→15:45)
--- NOTE | 2017-06-10 12:10 | SOAPPROG ---
SOAP Progress Note Assessment/Plan: A/P: * Gross hematuria: improved with cessation of anticoagulation. * Right parietal ICH: appears to have occurred prior to heparin. No anticoagulation. Neurology to see. * PE: IVC filter placed Thursday given bleeding issues. May be able to reconsider anticoagulation in future depending on status of the above. * Relative heparin resistance: ?etiology. Heparin d/c due to above. * Renal artery laceration with retroperitoneal bleed: s/p embolization and coil of left renal artery. Will likely sign off. Please call with questions. 06/10/17 12:07 Subjective: Improving, up shaving. No further gross hematuria. O: VS reviewed. Gen: very pleasant, NAD, fluent speech. Lungs: breathing comfortably. Laboratory Tests 06/10/17 04:49 WBC 11.63 H Hgb 9.0 L Plt Count 307 Objective: Vital Signs Temp Pulse Resp BP Pulse Ox 36.8 C 73 28 H 101/63 95 06/10/17 11:25 06/10/17 11:25 06/10/17 11:25 06/10/17 11:25 06/10/17 11:25 Microbiology 06/04/17 23:20 Blood Culture - Final Blood 06/04/17 23:20 Blood Culture - Final Blood Laboratory Results 06/10/17 04:49 06/10/17 04:49 06/09/17 06/10/17 06/11/17 05:59 05:59 05:59 Intake Total 300 Output Total 1425 1200 220 Balance -1125 -1200 -220 PT 15.2 SEC (12.0-15.0) H 06/10/17 04:49 INR 1.18 (0.83-1.16) H 06/10/17 04:49 ICD10 Worksheet Patient Problems: Problems Problem Status Onset Calculus of left kidney Acute Hypotension due to blood loss Acute Respiratory complication, post-procedure Acute Renal colic on right side Acute
--- NOTE | 2017-06-10 15:18 | ASMTCMCOM ---
CM Note CM Note Notes: Pt does not have sufficient goals for [facility] inpatient rehab. Spoke w pt and son Montrell about SNF, pt agreeable. Montrell will try to tour facilities with his sister. SNF list provided and pt/family to let CM know SNF choice. CM to follow. Date Signed: 06/10/2017 03:17 PM Electronically Signed By:CLARK Delgado
--- NOTE | 2017-06-10 16:13 | ASMTCMCOM ---
CM Note CM Note Notes: Disregard last CM note 06/10/2017 15:17 as it was entered in error Date Signed: 06/10/2017 04:12 PM Electronically Signed By:CLARK Delgado
--- NOTE | 2017-06-10 17:18 | HOSPPROG ---
Hospitalist Progress Note Assessment/Plan: NEW PATIENT TO ME ON May DIAGNOSES: * gross hematuria, which is now stopped off of anticoagulant - suspect bladder or prostate bleeding in the setting of anticoagulant * Hemorrhagic shock due to renal artery laceration with retroperitoneal bleed -s/p embolization/coil left renal artery * Acute respiratory failure s/p extubation with pulmonary edema * Acute PE: -Currently off anticoagulant due to his gross hematuria, IVC filter placed on 06/08 * Acute systolic CHF - EF 33% - now improved - ? 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 -at some point will want to do myocardial perfusion imaging, but delaying this until other issues stabilized+ * acute encephalopathy due to his multiple acute medical problems during this stay, with a history of cognitive decline and memory loss * acute ischemic right parietal stroke 06/07, tiny but with small amount of hemorrhage around the stroke; episode of aphasia on 06/07, currently resolved -MRI done 06/09 confirms the ischemic stroke in tiny hemorrhage * history of Bovine MVR * Ureteral stone s/p stent, complicated by perforated ureter/renal artery laceration * Acute blood loss anemia s/p massive transfusion I reviewed the patient's clinical status, progress in last 24 hr and care plan in detail the patient and his at the bedside, and also with Fouzia Schmidt of Urology and Dr. Munoz of hematology At this point with a subacute stroke that had some hemorrhage, and with his urinary bleeding, will continue off anticoagulation and continue with the filter in place The timing of resumption of anticoagulation will be determined based on his clinical progress but probably in approximately 3-4 days from now PLANS: -continue off anticoagulation with filter in place at this time -awaiting anti thrombin levels -continue current management of other respiratory issues and heart issues -will delay the cardiac stress test until all the above issues are resolved -continue PT -continue cardiac monitoring -will check lipid panel -will likely DC the patient on statin and aspirin as prevention for stroke -once the patient is discharged will recommend ongoing cognitive therapies and continuing follow up with Dr. 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 There is a very tiny right parietal ischemic stroke, subacute with a very small amount of hemorrhage around this. No other new acute abnormalities. Objective: Vital Signs Temp Pulse Resp BP Pulse Ox 37.2 C 77 23 H 108/73 92 06/10/17 16:00 06/10/17 16:00 06/10/17 16:00 06/10/17 16:00 06/10/17 16:00 Microbiology 06/04/17 23:20 Blood Culture - Final Blood 06/04/17 23:20 Blood Culture - Final Blood Laboratory Results 06/10/17 04:49 06/10/17 04:49 06/09/17 06/10/17 06/11/17 06:59 06:59 06:59 Intake Total 300 Output Total 1425 1200 220 Balance -1125 -1200 -220 PT 15.2 SEC (12.0-15.0) H 06/10/17 04:49 INR 1.18 (0.83-1.16) H 06/10/17 04:49 - Time Spent With Patient Time Spent with Patient: greater than 35 minutes Time Spent with Patient: Greater than 35 minutes spent on this patients care, greater than 50% of time spent counseling, educating, and coordinating care regarding the above mentioned plan. ICD10 Worksheet Patient Problems: Problems Problem Status Onset Calculus of left kidney Acute Hypotension due to blood loss Acute Respiratory complication, post-procedure Acute Renal colic on right side Acute
[2017-06-10] MEDS: MELATONIN 3 MG TAB PO SCH (22:42)
[2017-06-10] MEDS: traZODone 50 MG TAB PO SCH (22:47)
[2017-06-11] MEDS: ACETAMINOPHEN 325 MG TAB PO PRN ×2 (03:24→21:40)
[2017-06-11 05:32] LABS: PLATELET COUNT 324 10^3/uL (150-400)
[2017-06-11] MEDS: TAMSULOSIN HCL 0.4 MG CAP PO SCH (08:44)
[2017-06-11] MEDS: SENNOSIDES/DOCUSATE SODIUM TAB PO SCH ×2 (10:02→23:56)
[2017-06-11 11:36] LABS: INR 1.13 (0.83-1.16); PROTIME(PATIENT) 14.7 SEC (12.0-15.0)
--- NOTE | 2017-06-11 12:17 | SOAPPROG ---
SOAP Progress Note Assessment/Plan: Assessment: Left renal calculus- status post PCN, ureteral injury. Stent retained. Gross hematuria Palpable mass in left inguinal canal- likely hematoma Plan: Hematuria level has improved-- will hold off on cystoscopy. Continue to monitor urine color. Monitor hematoma in groin. No further assessment at this time. Patient seen with Dr Cochran. Discussed with Dr Martinez 06/11/17 12:16 Subjective: Ambulating. Minimal left groin pain today. Objective: Vital Signs Temp Pulse Resp BP Pulse Ox 36.4 C 57 L 16 117/64 96 06/11/17 08:00 06/11/17 08:00 06/11/17 08:00 06/11/17 08:00 06/11/17 08:00 Microbiology 06/04/17 23:20 Blood Culture - Final Blood 06/04/17 23:20 Blood Culture - Final Blood Laboratory Results 06/11/17 05:03 06/11/17 05:03 06/10/17 06/11/17 06/12/17 05:59 05:59 05:59 Output Total 1200 420 300 Balance -1200 -420 -300 PT 14.7 SEC (12.0-15.0) 06/11/17 11:01 INR 1.13 (0.83-1.16) 06/11/17 11:01 Physical Exam - Physical Exam General Appearance: alert, no apparent distress Skin: normal color, warm/dry Extremities: normal range of motion Neuro/Psych: normal mood/affect ICD10 Worksheet Patient Problems: Problems Problem Status Onset Calculus of left kidney Acute Hypotension due to blood loss Acute Respiratory complication, post-procedure Acute Renal colic on right side Acute
--- NOTE | 2017-06-11 15:37 | ASMTCMCOM ---
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 [facility] alerted and [facility] states they can accept. CM to follow. Date Signed: 06/11/2017 03:37 PM Electronically Signed By:CLARK Delgado
--- NOTE | 2017-06-11 19:17 | HOSPPROG ---
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 if this was cause of his recent gross hematuria * Hemorrhagic shock due to renal artery laceration with retroperitoneal bleed -s/p embolization/coil left renal artery * Acute respiratory failure s/p extubation with pulmonary edema * Acute PE: -Currently off anticoagulant due to his gross hematuria, IVC filter placed on 06/08 * Acute systolic CHF - EF 33% - now improved - ? 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 -at some point will want to do myocardial perfusion imaging, but delaying this until other issues stabilized+ * acute encephalopathy due to his multiple acute medical problems during this stay, with a history of cognitive decline and memory loss * acute ischemic right parietal stroke 06/07, tiny but with small amount of hemorrhage around the stroke; episode of aphasia on 06/07, currently resolved -MRI done 06/09 confirms the ischemic stroke in tiny hemorrhage * history of Bovine MVR * Ureteral stone s/p stent, complicated by perforated ureter/renal artery laceration * Acute blood loss anemia s/p massive transfusion I reviewed again today with Dr Cochran, and with pt and family. Will need to review further with hematology. At current if he has no more bleeding will consider resuming anticoagulation on 06/13 or 06/14, but would need to decide on which anticoagulant to use in light of his Antithrombin II deficiency PLANS: -continue off anticoagulation with filter in place at this time -further review with hematology re which anticoagulant to use when resumed; resume possibly 06/13 or 06/14 -continue current management of other respiratory issues and heart issues -will delay the cardiac stress test until all the above issues are resolved -continue PT -continue cardiac monitoring -will check lipid panel -will likely DC the patient on statin and aspirin as prevention for stroke -once the patient is discharged will recommend ongoing cognitive therapies and continuing follow up with Dr. 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: Sinus Exam: alert oriented and participates well in conversation and exam, though has some ongoing mild confusion skin warm dry color ok resps not labored though remain tachypneic on oxygen lungs clear BSs heart regular abd soft nondistended nontender, bowel sounds present limbs warm, edema is less today than it was yesterday His urine today again is clear with a brownish discoloration, no red and no clots iv site ok Lab data: Antithrombin III level is low in 50s CBC slight decrease in Hg is likely insignificant but will recheck Objective: Vital Signs Temp Pulse Resp BP Pulse Ox 37.3 C 674 H 16 124/75 H 85 L 06/11/17 15:52 06/11/17 15:52 06/11/17 15:52 06/11/17 15:52 06/11/17 17:06 Laboratory Results 06/11/17 05:03 06/11/17 05:03 06/10/17 06/11/17 06/12/17 06:59 06:59 06:59 Output Total 1200 420 475 Balance -1200 -420 -475 PT 14.7 SEC (12.0-15.0) 06/11/17 11:01 INR 1.13 (0.83-1.16) 06/11/17 11:01 - Time Spent With Patient Time Spent with Patient: greater than 35 minutes Time Spent with Patient: Greater than 35 minutes spent on this patients care, greater than 50% of time spent counseling, educating, and coordinating care regarding the above mentioned plan. ICD10 Worksheet Patient Problems: Problems Problem Status Onset Calculus of left kidney Acute Hypotension due to blood loss Acute Respiratory complication, post-procedure Acute Renal colic on right side Acute
[2017-06-11] MEDS: MELATONIN 3 MG TAB PO SCH (23:00)
[2017-06-11] MEDS: traZODone 50 MG TAB PO SCH (23:56)
[2017-06-12 05:20] LABS: PLATELET COUNT 343 10^3/uL (150-400)
[2017-06-12] MEDS: SENNOSIDES/DOCUSATE SODIUM TAB PO SCH ×2 (09:03→21:07)
[2017-06-12] MEDS: TAMSULOSIN HCL 0.4 MG CAP PO SCH (09:04)
--- NOTE | 2017-06-12 09:36 | SOAPPROG ---
SOAP Progress Note Assessment/Plan: A/P: * Gross hematuria: improved with cessation of anticoagulation. * Right parietal ICH: appears to have occurred prior to heparin. * PE: IVC filter placed 06/08/17 given bleeding issues. May be able to reconsider anticoagulation in future depending on status of the above. * Relative heparin resistance: ?etiology. AT level low 06/09 but may be secondary to heparin administration (heparin can reduce AT levels by 30%). Need to repeat farther from discontinuation. * Renal artery laceration with retroperitoneal bleed: s/p embolization and coil of left renal artery. 06/12/17 09:33 Subjective: Laboratory Tests 06/09/17 04:53 Antithrombin III Activ 56 L Objective: Vital Signs Temp Pulse Resp BP Pulse Ox 36.6 C 79 17 117/79 89 L 06/12/17 08:00 06/12/17 08:00 06/12/17 08:00 06/12/17 08:00 06/12/17 08:00 Laboratory Results 06/12/17 04:54 06/11/17 05:03 06/11/17 06/12/17 06/13/17 05:59 05:59 05:59 Output Total 420 1225 Balance -420 -1225 PT 14.7 SEC (12.0-15.0) 06/11/17 11:01 INR 1.13 (0.83-1.16) 06/11/17 11:01 ICD10 Worksheet Patient Problems: Problems Problem Status Onset Calculus of left kidney Acute Hypotension due to blood loss Acute Respiratory complication, post-procedure Acute Renal colic on right side Acute
--- NOTE | 2017-06-12 11:01 | SOAPPROG ---
SOAP Progress Note Assessment/Plan: Assessment: Left renal calculus- status post PCN, ureteral injury. Stent retained. Gross hematuria- stable, tea colored Palpable mass in left inguinal canal- likely hematoma, decreased in size and tenderness Plan: Continue care. No urologic changes at this point. If patient resumes anticoagulation, will monitor urine color. 06/12/17 11:00 Subjective: less tenderness on inguinal canal voiding well tea colored urine Objective: Vital Signs Temp Pulse Resp BP Pulse Ox 36.6 C 79 17 117/79 89 L 06/12/17 08:00 06/12/17 08:00 06/12/17 08:00 06/12/17 08:00 06/12/17 08:00 Laboratory Results 06/12/17 04:54 06/11/17 05:03 06/11/17 06/12/17 06/13/17 05:59 05:59 05:59 Output Total 420 1225 Balance -420 -1225 PT 14.7 SEC (12.0-15.0) 06/11/17 11:01 INR 1.13 (0.83-1.16) 06/11/17 11:01 Physical Exam - Physical Exam General Appearance: alert, no apparent distress Respiratory: normal breath sounds, No respiratory distress Abdomen: non-tender, other (left inguinal canal mass decreased in size, less tender) Skin: normal color, warm/dry Neuro/Psych: normal mood/affect ICD10 Worksheet Patient Problems: Problems Problem Status Onset Calculus of left kidney Acute Hypotension due to blood loss Acute Respiratory complication, post-procedure Acute Renal colic on right side Acute
--- NOTE | 2017-06-12 13:19 | HOSPPROG ---
Hospitalist Progress Note Objective: Vital Signs Temp Pulse Resp BP Pulse Ox 36.6 C 69 13 117/79 95 06/12/17 11:01 06/12/17 11:01 06/12/17 11:01 06/12/17 08:00 06/12/17 11:01 Laboratory Results 06/12/17 04:54 06/11/17 05:03 06/11/17 06/12/17 06/13/17 05:59 05:59 05:59 Output Total 420 1225 Balance -420 -1225 PT 14.7 SEC (12.0-15.0) 06/11/17 11:01 INR 1.13 (0.83-1.16) 06/11/17 11:01 ICD10 Worksheet Patient Problems: Problems Problem Status Onset Calculus of left kidney Acute Hypotension due to blood loss Acute Respiratory complication, post-procedure Acute Renal colic on right side Acute
--- NOTE | 2017-06-12 13:29 | HOSPPROG ---
Hospitalist Progress Note Assessment/Plan: Pt admitted with ureteral stone and underwent laser treatment with stent placement. Course complicated by renal artery laceration and hemorrhage, PE requiring IVC filter and acute systolic heart failure. Hemorrhagic shock - 2/2 renal artery lac, required massive transfusion and IR embolization. Hgb stable over past several days. PE - IVC filter in place, AC held due to bleeding. Right heart strain noted. Resume anti-coagulation likely within the week. Low AT3 - reviewed heme notes, this could be due to heparin use. Repeat in am. Hematuria - AC held until this is resolved CVA - reviewed with neurology and neurosurgery, likely ischemic focus with small surrounding hemorrhage. Per neurology, defer anti-coagulation for 2 weeks. Obstructive uropathy / UTI - s/p laser treatment with stent, complicated by renal artery lac and hemorrhage as above AHRF - acute systolic HF, 10 kg up, EF 33% on echo -IV lasix today -follow I&O's, daily weights CAD by CT - needs jewels prior to dc Full code Dispo - cont inpt Subjective: Pt feels ok. Reports swelling in b/l legs and abdomen. Denies CP or SOB. Still some hematuria, but improving. Good uop with diuresis. No pain. Objective: Vital Signs Temp Pulse Resp BP Pulse Ox 36.6 C 69 13 117/79 95 06/12/17 11:01 06/12/17 11:01 06/12/17 11:01 06/12/17 08:00 06/12/17 11:01 Laboratory Results 06/12/17 04:54 06/11/17 05:03 06/11/17 06/12/17 06/13/17 05:59 05:59 05:59 Output Total 420 1225 Balance -420 -1225 PT 14.7 SEC (12.0-15.0) 06/11/17 11:01 INR 1.13 (0.83-1.16) 06/11/17 11:01 - Physical Exam Constitutional: no apparent distress Eyes: PERRL Ears, Nose, Mouth, Throat: moist mucous membranes Cardiovascular: regular rate and rhythym Respiratory: no respiratory distress, inspiratory crackles Gastrointestinal: normoactive bowel sounds, soft, non-tender abdomen Skin: warm Musculoskeletal: other (2+ b/l LE edema) Neurologic: AAOx3 Psychiatric: interacting appropriately ICD10 Worksheet Patient Problems: Problems Problem Status Onset Calculus of left kidney Acute Hypotension due to blood loss Acute Respiratory complication, post-procedure Acute Renal colic on right side Acute
[2017-06-12] MEDS ORDERED: FUROSEMIDE 20 MG/2 ML VIAL IVP ONE (13:54)
[2017-06-12] MEDS: MELATONIN 3 MG TAB PO SCH (21:05)
[2017-06-12] MEDS: traZODone 50 MG TAB PO SCH (21:08)
[2017-06-13 05:24] LABS: PLATELET COUNT 371 10^3/uL (150-400)
--- NOTE | 2017-06-13 09:16 | SOAPPROG ---
SOAP Progress Note Assessment/Plan: Assessment: Calculus of left kidney Acute treated and stent in post PCN, will continue and follow up in office to address plan for removal Hypotension due to blood loss Acute stable Respiratory complication, post-procedure Acute one of complicating issues addressed by hospitalist and continue care as outlined by IM Renal colic on right side Acute stent in place Plan: dc plans per hospitalist 06/13/17 09:14 Subjective: ok Objective: Vital Signs Temp Pulse Resp BP Pulse Ox 36.4 C 60 17 118/69 94 06/13/17 08:00 06/13/17 08:00 06/13/17 08:00 06/13/17 08:00 06/13/17 08:00 Laboratory Results 06/13/17 04:49 06/11/17 05:03 06/12/17 06/13/17 06/14/17 05:59 05:59 05:59 Intake Total 200 Output Total 1225 1525 400 Balance -1225 -1325 -400 PT 14.7 SEC (12.0-15.0) 06/11/17 11:01 INR 1.13 (0.83-1.16) 06/11/17 11:01 Physical Exam - Physical Exam General Appearance: alert Skin: warm/dry ICD10 Worksheet Patient Problems: Problems Problem Status Onset Calculus of left kidney Acute Hypotension due to blood loss Acute Respiratory complication, post-procedure Acute Renal colic on right side Acute - ICD10 Problem Qualifiers (1) Hypotension due to blood loss (2) Respiratory complication, post-procedure
[2017-06-13] MEDS: SENNOSIDES/DOCUSATE SODIUM TAB PO SCH ×2 (09:50→20:54)
[2017-06-13] MEDS: TAMSULOSIN HCL 0.4 MG CAP PO SCH (09:50)
--- NOTE | 2017-06-13 13:06 | HOSPPROG ---
Hospitalist Progress Note Assessment/Plan: Pt admitted with ureteral stone and underwent laser treatment with stent placement. Course complicated by renal artery laceration and hemorrhage, then PE requiring IVC filter and acute systolic heart failure. Hemorrhagic shock - 2/2 renal artery lac, required massive transfusion and IR embolization. Hgb stable over past several days. PE - IVC filter in place, AC held due to hematuria. Right heart strain noted. Resume anti-coagulation likely tomorrow, see discussion below. Gross hematuria - AC held, this has resolved. AHRF - 10 LPM --> 1 LPM, secondary to PE plus acute systolic HF, wt 10 kg up, EF 33% on echo. Diuresed net negative overnight. -repeat IV Lasix today -follow I&O's, daily weights Low AT3 - Discussed with Dr. Robert from heme today, who suspects this was due to heparin, which can cause low AT3 levels, but not a true deficiency. Repeat AT3 level pending, but is a send-out and may be 3-5 days before resulted. Reviewed previous heparin data, along with anti-Xa levels. He slowly increased his anti-Xa level to therapeutic, from 0.1 to 0.48, then suddenly 4 hrs later, anti-Xa level dropped back to 0.15 and subsequent level also low. Heparin was up-titrated during that time and he bled. We suspect an assay problem (or was it drawn in the wrong tube?) given the 0.48 therapeutic level previously. Plan is to resume heparin drip in am. Will follow both anti-Xa and PTT. If anti-Xa levels inappropriately low but PTT therapeutic, then would not increase heparin. CVA - reviewed with neurology, likely ischemic focus with small surrounding hemorrhage. Per neurology, ok to resume anticoagulation. Obstructive uropathy / UTI - s/p laser treatment with stent, complicated by renal artery lac and hemorrhage as above -f/u with urology outpt for stent removal CAD by CT - needs jewels prior to dc, waiting for optimization of respiratory status Full code Dispo - cont inpt Subjective: Pt feels well. No CP or SOB. Ambulating. No more hematuria. No fevers/chills. Objective: Vital Signs Temp Pulse Resp BP Pulse Ox 36.4 C 60 17 118/69 94 06/13/17 08:00 06/13/17 08:00 06/13/17 08:00 06/13/17 08:00 06/13/17 08:00 Laboratory Results 06/13/17 04:49 06/11/17 05:03 06/12/17 06/13/17 06/14/17 05:59 05:59 05:59 Intake Total 200 Output Total 1225 1525 850 Balance -1225 -1325 -850 PT 14.7 SEC (12.0-15.0) 06/11/17 11:01 INR 1.13 (0.83-1.16) 06/11/17 11:01 - Physical Exam Constitutional: no apparent distress Eyes: PERRL Ears, Nose, Mouth, Throat: moist mucous membranes Cardiovascular: regular rate and rhythym Respiratory: no respiratory distress, clear to auscultation Gastrointestinal: normoactive bowel sounds, soft, non-tender abdomen, other ( some abdominal distention / fluid retention) Musculoskeletal: full muscle strength, other (b/l LE edema, 1+) Neurologic: AAOx3 Psychiatric: interacting appropriately ICD10 Worksheet Patient Problems: Problems Problem Status Onset Calculus of left kidney Acute Hypotension due to blood loss Acute Respiratory complication, post-procedure Acute Renal colic on right side Acute
[2017-06-13] MEDS ORDERED: FUROSEMIDE 20 MG/2 ML VIAL IVP ONE (15:07)
[2017-06-13] MEDS: traZODone 50 MG TAB PO SCH (19:32)
[2017-06-13] MEDS: MELATONIN 3 MG TAB PO SCH (20:54)
[2017-06-14 05:19] LABS: PLATELET COUNT 388 10^3/uL (150-400)
[2017-06-14] MEDS ORDERED: HEPARIN 10,000 UNIT/10 ML MDV (1,000 UNIT/ML) IVP PRN (08:47)
--- NOTE | 2017-06-14 08:50 | HOSPPROG ---
Hospitalist Progress Note Assessment/Plan: Pt admitted with ureteral stone and underwent laser treatment with stent placement. Course complicated by renal artery laceration and hemorrhage requiring massive transfusion and subsequent acute systolic heart failure requiring intubation, then PE requiring IVC filter due to gross hematuria while on heparin. Hemorrhagic shock - 2/2 renal artery lac, s/p massive transfusion and IR embolization. Hgb stable. PE - IVC filter in place, AC held due to hematuria x5 days. Right heart strain noted. -resume heparin today, will follow PTT and anti-Xa, but up-titration per PTT protocol given previous problems with low anti-Xa levels (?assay problem) -see discussion below Gross hematuria - Resolved with AC on hold. AHRF - In setting of PE and acute systolic HF, extubated 06/03. Diuresed, now on room air. Low AT3 - Discussed with Dr. Robert from [facility] today, who suspects this was due to heparin, which can cause low AT3 levels, but not a true deficiency. Repeat AT3 level pending, but is a send-out and may be 3-4 days before resulted. Reviewed previous heparin data, along with anti-Xa levels. He slowly increased his anti-Xa level to therapeutic, from 0.1 to 0.48, then suddenly 4 hrs later, anti-Xa level dropped back to 0.15 and subsequent level also low. Heparin was up-titrated during that time and he bled. We suspect an assay problem (or was it drawn in the wrong tube?) given the 0.48 therapeutic level previously. CVA - reviewed with neurology, likely ischemic focus with small surrounding hemorrhage. Per neurology, ok to resume anticoagulation. Obstructive uropathy / UTI - s/p laser treatment with stent, complicated by renal artery lac and hemorrhage as above -f/u with urology outpt for stent removal CAD by CT - needs jewels prior to dc, waiting for optimization of respiratory status -will discuss timing with Dr. Cohn, pt's primary weigh box tender, tomorrow per their request Full code Dispo - cont inpt Subjective: Pt doing well. Off O2. No CP or SOB. LE edema improved. Eating well. Ambulating. Objective: Vital Signs Temp Pulse Resp BP Pulse Ox 36.2 C 75 16 106/70 94 06/14/17 07:34 06/14/17 07:34 06/14/17 07:34 06/14/17 07:34 06/14/17 07:34 Laboratory Results 06/14/17 04:35 06/14/17 04:35 06/13/17 06/14/17 06/15/17 05:59 05:59 05:59 Intake Total 200 300 Output Total 1525 1350 Balance -1325 -1050 PT 14.7 SEC (12.0-15.0) 06/11/17 11:01 INR 1.13 (0.83-1.16) 06/11/17 11:01 - Physical Exam Constitutional: no apparent distress Eyes: PERRL Ears, Nose, Mouth, Throat: moist mucous membranes Cardiovascular: regular rate and rhythym Respiratory: no respiratory distress Gastrointestinal: normoactive bowel sounds, soft, non-tender abdomen Skin: warm Musculoskeletal: full muscle strength Neurologic: AAOx3 Psychiatric: interacting appropriately ICD10 Worksheet Patient Problems: Problems Problem Status Onset Calculus of left kidney Acute Hypotension due to blood loss Acute Respiratory complication, post-procedure Acute Renal colic on right side Acute
[2017-06-14] MEDS: SENNOSIDES/DOCUSATE SODIUM TAB PO SCH ×2 (08:51→21:19)
[2017-06-14] MEDS: TAMSULOSIN HCL 0.4 MG CAP PO SCH (08:52)
[2017-06-14 10:15] LABS: PLATELET COUNT 433 10^3/uL (150-400)
[2017-06-14 10:42] LABS: INR 1.12 (0.83-1.16); PROTIME(PATIENT) 14.6 SEC (12.0-15.0)
[2017-06-14] MEDS: HEPARIN/DEXTROSE 500 ML IV SCH (12:13)
--- NOTE | 2017-06-14 15:44 | SOAPPROG ---
SOAP Progress Note Assessment/Plan: Assessment: * Right parietal ICH: appears to have occurred prior to heparin. * PE: IVC filter placed 06/08/17 given bleeding issues. May be able to reconsider anticoagulation in future depending on status of the above. * Relative heparin resistance: ?etiology. AT level low 06/09 but may be secondary to heparin administration (heparin can reduce AT levels by 30%). Repeat level off UFH is pending * Renal artery laceration with retroperitoneal bleed: s/p embolization and coil of left renal artery Plan: - UFH restarted. Following anti Xa and PTT. - ATIII - check repeat level when available - Monitor for new evidence of bleeding Subjective: A little fatigued. Did 4 laps around the floor today. Visiting with family. Objective: Vital Signs Temp Pulse Resp BP Pulse Ox 36.2 C 75 16 106/70 94 06/14/17 07:34 06/14/17 07:34 06/14/17 07:34 06/14/17 07:34 06/14/17 07:34 Laboratory Results 06/14/17 10:00 06/14/17 04:35 06/12/17 06/13/17 06/14/17 23:59 23:59 23:59 Intake Total 200 300 Output Total 1750 1425 900 Balance -1750 -1225 -600 PT 14.6 SEC (12.0-15.0) 06/14/17 10:00 INR 1.12 (0.83-1.16) 06/14/17 10:00 Physical Exam - Physical Exam General Appearance: alert, no apparent distress Skin: pallor Neuro/Psych: alert, normal mood/affect, oriented x 3 ICD10 Worksheet Patient Problems: Problems Problem Status Onset Calculus of left kidney Acute Hypotension due to blood loss Acute Respiratory complication, post-procedure Acute Renal colic on right side Acute
[2017-06-14] MEDS: traZODone 50 MG TAB PO SCH (21:19)
[2017-06-14] MEDS: MELATONIN 3 MG TAB PO SCH (21:20)
[2017-06-15] MEDS: HEPARIN/DEXTROSE 500 ML IV SCH ×2 (04:04→19:18)
[2017-06-15] MEDS: TAMSULOSIN HCL 0.4 MG CAP PO SCH (09:43)
[2017-06-15] MEDS: SENNOSIDES/DOCUSATE SODIUM TAB PO SCH ×2 (09:43→20:33)
--- NOTE | 2017-06-15 11:51 | HOSPPROG ---
Hospitalist Progress Note Assessment/Plan: Pt admitted with ureteral stone and underwent laser treatment with stent placement. Course complicated by renal artery laceration and hemorrhage requiring massive transfusion and subsequent acute systolic heart failure requiring intubation, then PE requiring IVC filter due to gross hematuria while on heparin. Hemorrhagic shock - 2/2 renal artery lac, s/p massive transfusion and IR embolization. Hgb stable. PE - IVC filter in place. AC held due to hematuria x5 days, resumed 06/14. Right heart strain noted. -resumed heparin yesterday without bolus, slowly up-titrated to therapeutic by PTT protocol (anti-Xa levels still low, unclear why), no bleeding -see discussion below -monitor one more day on therapeutic heparin and change to eliquis tomorrow if remains stable. Gross hematuria - Occurred on high dose of heparin, since resolved. AHRF - In setting of PE and acute systolic HF, extubated 06/03. Diuresed, now on room air. Low AT3 / ?heparin resistance - Discussed with heme today, who suspects this was due to heparin, which can cause low AT3 levels. Repeat AT3 level pending. Reviewed previous heparin data, along with anti-Xa levels. He slowly increased his anti-Xa level to therapeutic, from 0.1 to 0.48, then suddenly 4 hrs later, anti-Xa level dropped back to 0.15 and subsequent level also low. Heparin was up-titrated during that time and he bled. We suspect an assay problem (or was it drawn in the wrong tube?) given the 0.48 therapeutic level previously. Oddly, his anti-Xa levels still remain low despite therapeutic range by PTT. CVA - reviewed with neurology, likely ischemic focus with small surrounding hemorrhage. Per neurology, ok to resume anticoagulation. Obstructive uropathy / UTI - s/p laser treatment with stent, complicated by renal artery lac and hemorrhage as above -f/u with urology outpt for stent removal CAD by CT - Discussed with Dr. Cohn, pt's primary career development coordinator, who advises outpt stress test when he is more stable from above issues -f/u with Dr. Cohn for outpt risk stratification Full code Dispo - cont inpt Subjective: Pt feels well. Now therapeutic on heparin, no more bleeding. No CP or SOB. He is ambulating frequently. No hematuria. Appetite good. Objective: Vital Signs Temp Pulse Resp BP Pulse Ox 36.7 C 63 16 121/69 H 93 06/15/17 07:48 06/15/17 07:48 06/15/17 07:48 06/15/17 07:48 06/15/17 07:48 Laboratory Results 06/15/17 04:48 06/14/17 04:35 06/14/17 06/15/17 06/16/17 05:59 05:59 05:59 Intake Total 300 1420 Output Total 1350 1725 Balance -1050 -305 PT 14.6 SEC (12.0-15.0) 06/14/17 10:00 INR 1.12 (0.83-1.16) 06/14/17 10:00 - Physical Exam Constitutional: no apparent distress Eyes: PERRL Ears, Nose, Mouth, Throat: moist mucous membranes Cardiovascular: regular rate and rhythym Respiratory: no respiratory distress, clear to auscultation Gastrointestinal: normoactive bowel sounds, soft, non-tender abdomen Skin: warm Musculoskeletal: full muscle strength Neurologic: AAOx3 Psychiatric: interacting appropriately ICD10 Worksheet Patient Problems: Problems Problem Status Onset Calculus of left kidney Acute Hypotension due to blood loss Acute Respiratory complication, post-procedure Acute Renal colic on right side Acute
--- NOTE | 2017-06-15 12:06 | SOAPPROG ---
SOAP Progress Note Assessment/Plan: Assessment: 1. Kidney stone --> perc nephrostomy tube 2. Iatrogenic retroperitoneal bleed 3. Pulmonary embolism 4. Unreliable anti-Xa level monitoring 5. Bleeding (bladder, ICH) on UFH Plan: - OK to change to direct acting oral anticoagulant (Xarelto, Eliquis) tomorrow - doubt pt has ATIII deficiency, because those levels can be falsely depressed during an acute clot. ATIII deficiency is extremely rare. DOAC is appropriate therapy even if he does have true ATIII deficiency - will need 3-6 months of therapeutic anticoagulation - pt can f/u with our office (Dr. Aura Salguero) after discharge. 35 min spent w/ pt and in coordination of care. d/w dr martin 06/15/17 12:00 Subjective: feels well today Objective: exam: NAD lungs CTAB CV RRR no mGR Abd: +BS NT ND Ext: no edema Vital Signs Temp Pulse Resp BP Pulse Ox 36.7 C 63 16 121/69 H 93 06/15/17 07:48 06/15/17 07:48 06/15/17 07:48 06/15/17 07:48 06/15/17 07:48 Laboratory Results 06/15/17 04:48 06/14/17 04:35 06/14/17 06/15/17 06/16/17 05:59 05:59 05:59 Intake Total 300 1420 Output Total 1350 1725 Balance -1050 -305 PT 14.6 SEC (12.0-15.0) 06/14/17 10:00 INR 1.12 (0.83-1.16) 06/14/17 10:00 ICD10 Worksheet Patient Problems: Problems Problem Status Onset Calculus of left kidney Acute Hypotension due to blood loss Acute Respiratory complication, post-procedure Acute Renal colic on right side Acute
--- NOTE | 2017-06-15 14:42 | ASMTCMCOM ---
CM Note CM Note Notes: 06/15/2017 Case Management Note Reviewed chart. Case Management d/c poc: [facility] RN and SLT. OT is recommending outpatient rehab oin 06/15 note. Pt is recommending outpatient rehabilitation in 06/15 note.SLT is recommending home care. Faxed updates to [facility]. Case management to follow for further d/c needs. Date Signed: 06/15/2017 02:41 PM Electronically Signed By:Divina Castro RN
[2017-06-15] MEDS: MELATONIN 3 MG TAB PO SCH (20:32)
[2017-06-15] MEDS: traZODone 50 MG TAB PO SCH (20:45)
[2017-06-16 05:50] LABS: PLATELET COUNT 403 10^3/uL (150-400)
[2017-06-16 07:55] VITALS: BP 126/68; PULSE 60; RESP 18; TEMP 97.8; O2SAT 91
[2017-06-16] MEDS: TAMSULOSIN HCL 0.4 MG CAP PO SCH (07:59)
[2017-06-16] MEDS: SENNOSIDES/DOCUSATE SODIUM TAB PO SCH (08:00)
[2017-06-16] MEDS ORDERED: APIXABAN 5 MG TAB PO SCH (10:30)
--- NOTE | 2017-06-16 10:37 | PDIAF ---
- Diagnosis Diagnosis: Stroke, PE, Obstructive uropathy Code Status: Full Code - Medication Management Discharge Medications: Medications to Continue on Transfer Herbals/Supplements -Info Only 1 each PO DAILY 12/03/16 [Last Taken Unknown] Acetaminophen [Tylenol 325mg (*)] 650 mg PO Q4HRS PRN #90 tab 06/16/17 [Last Taken Unknown] Apixaban [Eliquis] 5 mg PO BID #60 tab 06/16/17 [Last Taken Unknown] Atorvastatin Calcium 80 mg PO DAILY #90 tablet 06/16/17 [Last Taken Unknown] Hydrocortisone 1% [Hydrocortisone 1% cream (*)] 1 dina TP BID PRN cream [Last Taken Unknown] Melatonin [Melatonin 3 MG (*)] 6 mg PO HS tab 06/16/17 [Last Taken Unknown] Sennosides/Docusate Sodium [Senokot-S] 1 - 2 tab PO BID tab 06/16/17 [Last Taken Unknown] Sodium Cl Nasal [[place] (*)] 1 spray [place] PRN PRN btl 06/16/17 [Last Taken Unknown] Tamsulosin HCl [Flomax 0.4 MG (*)] 0.4 mg PO DAILY #30 cap 06/16/17 [Last Taken Unknown] Discharge Medications: Refer to the Discharge Home Medication list for PRN reason. - Orders Services needed: Home Care, Occupational Therapy, Speech Language Pathologist Home Care Face to Face: I certify that this patient was under my care and that I had the required [id number] encounter meeting the encounter requirements on the discharge day. My findings support the fact that the patient is homebound as defined in Home Care Face to Face Continued: CMS Chapter 7 Medicare Benefits Manual 30.1.1 , The condition of the patient is such that there exists a normal inability to leave home and consequently, leaving home would require a considerable and taxing effort. Diet Recommendation: no restrictions on diet Diet Texture: Regular Texture Diet, Thin Liquids Activity/Weight Bearing Restrictions: full wt bear - Follow Up Care Current Providers and Referrals: Claudia Munoz MD [Medical Doctor] - Alexy Cohn MD [Medical Doctor] - Giovanny Blunt MD [Medical Doctor] -
--- NOTE | 2017-06-16 13:39 | SOAPPROG ---
SOAP Progress Note Assessment/Plan: Assessment: Left renal calculus- status post PCN, ureteral injury. Stent retained. Gross hematuria- stable, largely resolved Palpable mass in left inguinal canal- likely hematoma, decreased in size and tenderness, minimally uncomfortable Plan: F/U with our office for discussion of stent removal in 3 weeks. 06/16/17 13:38 06/16/17 13:46 Objective: Vital Signs Temp Pulse Resp BP Pulse Ox 36.6 C 60 18 126/68 H 91 L 06/16/17 07:53 06/16/17 07:53 06/16/17 07:53 06/16/17 07:53 06/16/17 07:53 Laboratory Results 06/16/17 04:53 06/14/17 04:35 06/15/17 06/16/17 06/17/17 05:59 05:59 05:59 Intake Total 1420 450 Output Total 1725 1500 350 Balance -305 -1050 -350 PT 14.6 SEC (12.0-15.0) 06/14/17 10:00 INR 1.12 (0.83-1.16) 06/14/17 10:00 ICD10 Worksheet Patient Problems: Problems Problem Status Onset Calculus of left kidney Acute Hypotension due to blood loss Acute Renal colic on right side Acute Respiratory complication, post-procedure Acute
--- NOTE | 2017-06-16 14:00 | ASMTCMCOM ---
CM Note CM Note Notes: Pt medically stable for d/c with [facility] PT/BEAN PICKER MACHINE OPERATOR and family support. Orders to be obtained in [employer] Date Signed: 06/16/2017 01:57 PM Electronically Signed By:CLARK Delgado
--- NOTE | 2017-06-16 14:01 | ASDISCHSUM ---
Discharge Information Plan Status:Home with Home Health Medically Cleared to Leave: Discharge Date:06/16/2017 01:32 PM CM D/C Disposition:Home Health Service ADT D/C Disposition:Home, Routine, Self-Care Projected Discharge Date:06/17/2017 11:00 AM Transportation at D/C:Family Discharge Delay Reason: Follow-Up Date:06/17/2017 11:00 AM Discharge Slot: Final Diagnosis:LLQ Pain Placement Information Referral Type:*Home Health Care Services Referral ID:[id number] Provider Name:[facility] Address 1:[address] Address 2: City:[place] Selection Factors: State:[place] Patient Contact Information Contact Name:LEA Relationship: Address:[address] City:[place] Alternate Phone: State/Zip Code:[place] [address] Email: Financial Information Financial Class: Primary Plan Desc:MEDICARE INPATIENT Primary Plan Number:[id number] Secondary Plan Desc:[employer] PPO POS HMO SIG ADM Secondary Plan Number:[id number] Assessment Information [facility] CM Progress Note CM Note CM Note Notes: 71 year old male admitted for LLQ pain. He has a hx of DLD, HLD, cardiac arrest, valve replacement, kidney stones. Patient was in surgery to place a stent above the stone when an artery was nicked. Patient's blood pressure dropped. he was given blood products. Now on vent 60% IO2. Lives with his and she reports that he walks 8-10 mis/day. CM to follow for discharge needs. Date Signed: 05/31/2017 06:09 PM Electronically Signed By:Nicole Terrell LCSW [facility] CM Progress Note CM Note CM Note Notes: Patient extubated successfully today. He's being weaned off all pressors, as well. KNITTING MACHINE MECHANIC/PT/OT have been ordered, and evals are pending; this will help us determine discharge plan. Patient is supported by his [place]. Case Management will follow. Date Signed: 06/03/2017 12:44 PM Electronically Signed By:Jing Dahl RN [facility] CM Progress Note CM Note CM Note Notes: PT recommending HC w/24 hr supervision at this point. Pt lives at home w/supportive . Pt has PNA now, high O2 needs, not close to dc. CM will continure to follow; DC plan: likely home w/ and [facility]. Date Signed: 06/05/2017 12:32 PM Electronically Signed By:Yas Jones RN [facility] CM Progress Note CM Note CM Note Notes: Reviewed chart regarding discharge plan, pt's progress. Per notes, pt may be able to discharge home w/ Home Health Care. Per BEREKET Tarango, pt w/ new dx of a PE. PT/OT cont to rec inpatient rehab. LVM for Alison Cardoza xt [id number] to eval on Jerry 01/22/18. Discharge needs remain unclear at this time. CM will cont to follow. Current Discharge Plan: To be determined Date Signed: 06/06/2017 05:31 PM Electronically Signed By:Dulce Barajas RN [facility] CM Progress Note CM Note CM Note Notes: PT recommending HHC. OT & MD recommending Inpt Rehab. Order placed for Inpt Rehab. CM will continue to follow. Date Signed: 06/08/2017 05:32 PM Electronically Signed By:Shanda Luu RN [facility] CM Progress Note CM Note CM Note Notes: Pt does not have sufficient goals for [facility] inpatient rehab. Spoke w pt and son Montrell about SNF, pt agreeable. Montrell will try to tour facilities with his sister. SNF list provided and pt/family to let CM know SNF choice. CM to follow. Date Signed: 06/10/2017 03:17 PM Electronically Signed By:CLARK Delgado [facility] CM Progress Note CM Note CM Note Notes: Disregard last CM note 06/10/2017 15:17 as it was entered in error Date Signed: 06/10/2017 04:12 PM Electronically Signed By:CLARK Delgado [facility] CM Progress Note CM Note CM Note Notes: Pt and chose [facility] for [facility] RN/PT/OT/KNITTING MACHINE MECHANIC, phone/address verified. [facility] alerted and Kurt states they can accept. CM to follow. Date Signed: 06/11/2017 03:37 PM Electronically Signed By:CLARK Delgado [facility] CM Progress Note CM Note CM Note Notes: 06/15/2017 Case Management Note Reviewed chart. Case Management d/c poc: [facility] RN and SLT. OT is recommending outpatient rehab oin 06/15 note. Pt is recommending outpatient rehabilitation in 06/15 note.SLT is recommending home care. Faxed updates to [facility]. Case management to follow for further d/c needs. Date Signed: 06/15/2017 02:41 PM Electronically Signed By:Divina Castro RN [facility] CM Progress Note CM Note CM Note Notes: Pt medically stable for d/c with [facility] PT/KNITTING MACHINE MECHANIC and family support. Orders to be obtained in [employer]. Date Signed: 06/16/2017 01:57 PM Electronically Signed By:CLARK Delgado Intervention Information Intervention Type:*IM-Signed Date of Service:06/16/2017 11:26 AM Patient Type:Inpatient Staff Member:Adriana Poe Hours: Discipline: Severity: Comment:
--- NOTE | 2017-06-16 20:04 | GDS ---
[f rep st] DISCHARGE SUMMARY DISCHARGE DIAGNOSES: 1. Obstructive uropathy secondary to nephrolithiasis, status post laser treatment and stent placemen t. 2. Hemorrhagic shock secondary to renal artery laceration, status post massive transfusion protocol and IR embolization. 3. Acute pulmonary embolism requiring IVC filter due to bleeding on anticoagulation. 4. Gross hematuria occurred on anticoagulation, resolved. 5. Acute hypoxemic respiratory failure requiring intubation secondary to acute systolic heart failur e after massive volume resuscitation, likely hastened by the acute pulmonary embolism. Discharged on room air. 6. Low antithrombin III level. 7. Subacute ischemic cerebrovascular accident with small hemorrhagic conversion. 8. Coronary artery disease noted on CT scan. Will require outpatient risk stratification. CONSULTANTS: 1. Tete Blunt MD, Urology. 2. Preet Cervantes MD, Interventional Radiology. 3. Lamonte Oquendo MD, Pulmonology. 4. Aura Salguero MD, Hematology. PROCEDURES: 1. Left ureteroscopy, laser, and attempted stent placement May 30, [address] Giovanny Blunt. 2. Left renal arteriogram May 30, 2017 confirmed an iatrogenic laceration of the interlobar santos rial branch of the lower pole of the left kidney. 3. Microcoil embolization of the above renal artery, performed by Dr. Preet Cervantes. 4. Percutaneous internal left ureteral stent placement May 30, 2017, performed by Dr. Preet vickers. 5. Central venous catheter placement May 30, 2017, performed by Dr. Ochoa Harris. 6. IVC filter placement June 08, 2017, performed by Dr. Kassandra Shah. HISTORY: For details, please see dictated history and physical dated May 29, 2017. In brief, th e patient is a 71-year-old male, who presented to the hospital with left lower quadrant abdominal sofia n. Workup revealed obstructive uropathy secondary to left nephrolithiasis, as well as a urinary trac t infection. He was admitted to the hospital for further management. HOSPITAL COURSE: The patient was admitted to the Med/Surg unit. He initially underwent laser treatm ent and attempted stent placement by the Urology service. This, unfortunately, resulted in an iatrog enic laceration of the renal artery, from which he developed hemorrhagic shock requiring massive adams sfusion protocol. He received a total of 8 units of packed red blood cells, 3 units of FFP and 2 uni ts of platelets. He then developed acute respiratory failure with pulmonary edema, requiring intubat ion. Initial echocardiogram showed an ejection fraction of 30%. Repeat echo showed improvement with an EF of 45% to 50%, which is the same as his baseline echo from March 2017. CT pulmonary angiog robi showed bilateral acute pulmonary embolisms. At this point, he was started on IV heparin. He ini tially received heparin titration per the antiXa protocol. His antiXa levels slowly vikram to therapeu tic range, and then oddly, precipitously dropped, during which time his heparin continued to be uptit rated per protocol. He then developed gross hematuria, and it sounds like he had significant active bleeding. At this point, the heparin was stopped, and an IVC filter was placed. Anticoagulation was held for 5 days. His hematuria completely resolved. I resumed a heparin drip on June 14 witho ut a bolus, and this time, we followed the PTT protocol, up-titrating to therapeutic range. Interest ingly, his antiXa levels remained very low despite therapeutic PTT levels on heparin. He was observe d for 48 hours on the heparin drip with no evidence of active bleeding. His hemoglobin remained stab le. On the day of discharge, he was transitioned to oral Eliquis and is provided with a one-month co upon. He is also started on a statin given his recent stroke. He should follow up with Neurology to discuss addition of antiplatelet therapy, but given his recent significant bleeding complications, tabitha lopez will discharge on anticoagulation alone and will defer initiation of antiplatelet therapy to his ne urologist. The patient did require diuresis, and we were able to wean him off oxygen. He has been s atting in the mid on room air. It is also noted he has had some ongoing cognitive changes, and tabitha lopez will have home health speech services for ongoing cognitive therapy. DISPOSITION: Patient is discharged home in stable condition with home health services for occupation al therapy and speech/cognitive therapy. DISCHARGE MEDICATIONS: Please see [employer] for complete updated outpatient medication list. New med ications on discharge include Eliquis 5 mg p.o. twice daily #60 no refills, atorvastatin 80 mg p.o. d aily #90 no refills, tamsulosin 0.4 mg p.o. daily #30 no refills, Senokot, melatonin, Tylenol, and hy drocortisone cream. FOLLOWUP: 1. Follow up with Dr. Blunt's office, Urology, for stent removal. 2. Follow up with Dr. Claudia Munoz, Hematology, regarding a pending antithrombin III level and durati on of therapy for Eliquis, as well as timing of the IVC filter removal. 3. Follow up with Neurology regarding his recent stroke and indication to start aspirin therapy on t op of his current anticoagulation. 4. Follow up with Dr. Alexy Cohn, Cardiology, for outpatient cardiac stress testing. 5. Follow up with PCP as needed. /[id number]/MODL
== END 2017-06-16 13:32 | disposition home health service (06) | DRG 673 ==
LOC: INTOOBSV 18:09 → F1N 19:58 → OBSVTOIN 05-30 15:58 → F2N 05-30 19:43 → F3N 06-04 17:59
PROVIDERS: ADMIT Family Medicine; ATTEND Hospitalist
PROC: 5A1945Z Respiratory Ventilation, 24-96 Consecutive Hours (ICD-10-PCS; 2017-05-30)
PROC: 30233K1 Transfusion of Nonautologous Frozen Plasma into Peripheral Vein, Percutaneous Approach (ICD-10-PCS; 2017-05-30)
PROC: 30233R1 Transfusion of Nonautologous Platelets into Peripheral Vein, Percutaneous Approach (ICD-10-PCS; 2017-05-30)
PROC: 0BH17EZ Insertion of Endotracheal Airway into Trachea, Via Natural or Artificial Opening (ICD-10-PCS; 2017-05-30)
PROC: 30233N1 Transfusion of Nonautologous Red Blood Cells into Peripheral Vein, Percutaneous Approach (ICD-10-PCS; 2017-05-30)
PROC: 06HM33Z Insertion of Infusion Device into Right Femoral Vein, Percutaneous Approach (ICD-10-PCS; 2017-05-30)
PROC: 3E043XZ Introduction of Vasopressor into Central Vein, Percutaneous Approach (ICD-10-PCS; 2017-05-30)
PROC: 0TF Urinary System, Fragmentation (ICD-10-PCS; principal; 2017-05-30 11:00)
PROC: B4171ZZ Fluoroscopy of Left Renal Artery using Low Osmolar Contrast (ICD-10-PCS; 2017-05-30 11:00)
PROC: 0T9730Z Drainage of Left Ureter with Drainage Device, Percutaneous Approach (ICD-10-PCS; 2017-05-30 11:00)
PROC: 04LA3ZZ Occlusion of Left Renal Artery, Percutaneous Approach (ICD-10-PCS; 2017-05-30 11:00)
PROC: 06H03DZ Insertion of Intraluminal Device into Inferior Vena Cava, Percutaneous Approach (ICD-10-PCS; 2017-06-08)
DX: N13.2 Hydronephrosis with renal and ureteral calculous obstruction (principal); N39.0 Urinary tract infection, site not specified; N99.71 Accidental puncture and laceration of a genitourinary system organ or structure during a genitourinary system procedure; I97.52 Accidental puncture and laceration of a circulatory system organ or structure during other procedure; N99.820 Postprocedural hemorrhage of a genitourinary system organ or structure following a genitourinary system procedure; T81.19XA Other postprocedural shock, initial encounter; J96.01 Acute respiratory failure with hypoxia; E87.71 Transfusion associated circulatory overload; I50.21 Acute systolic (congestive) heart failure; I26.09 Other pulmonary embolism with acute cor pulmonale; I82.491 Acute embolism and thrombosis of other specified deep vein of right lower extremity; D68.32 Hemorrhagic disorder due to extrinsic circulating anticoagulants; R31.9 Hematuria, unspecified; D68.59 Other primary thrombophilia; T45.515A Adverse effect of anticoagulants, initial encounter; I63.511 Cerebral infarction due to unspecified occlusion or stenosis of right middle cerebral artery; I61.0 Nontraumatic intracerebral hemorrhage in hemisphere, subcortical; R47.01 Aphasia; R41.89 Other symptoms and signs involving cognitive functions and awareness; D62 Acute posthemorrhagic anemia; L27.0 Generalized skin eruption due to drugs and medicaments taken internally; T36.1X5A Adverse effect of cephalosporins and other beta-lactam antibiotics, initial encounter; I25.10 Atherosclerotic heart disease of native coronary artery without angina pectoris; E78.5 Hyperlipidemia, unspecified; Z86.74 Personal history of sudden cardiac arrest; Z95.3 Presence of xenogenic heart valve; Z87.891 Personal history of nicotine dependence
CPT/HCPCS: 82947-QW; 85300-90; 85520-90; 92507-GN; 92523-GN; 92526-GN; 92610-GN; 96374; 97110-GP; 97116-GP; 97161-GP; 97165-GO; 97530-GO; 97530-GP; 97532-GO; 97535-GO; C1729; C1758; C1769; C1892; C1894; C2625; G0378; G8978-GP-CI; G8978-GP-CJ; G8979-GP-CI; G8980-GP-CI; G8987-GO-CJ; G8987-GO-CK; G8988-GO-CI; G8996-GN-CL; G8997-GN-CI; G8998-GN-CH; G9168-GN-CJ; G9169-GN-CI; J0692; J0696; J1100; J1170; J1265; J1644; J1885; J1940; J2185; J2250; J2370; J2405; J2704; J3010; J3370; P9016; P9017; P9035; P9073; Q9967

== ENCOUNTER → 2017-07-24 | Outpatient (CLI) | payer OTHER ==
[~2017-07-24] MED LIST changes: -IOPAMIDOL (ISOVUE 370) 100 ML BTL IV ONE; +IOPAMIDOL (ISOVUE-300) 100 ML BTL ONE
== END ==
LOC: FIMAGING 09:00
PROVIDERS: ATTEND Specialist
DX: N20.0 Calculus of kidney (principal); N28.1 Cyst of kidney, acquired; I51.7 Cardiomegaly; I25.10 Atherosclerotic heart disease of native coronary artery without angina pectoris; Z96.0 Presence of urogenital implants
CPT/HCPCS: 74177; Q9967

== ENCOUNTER → 2017-08-17 | Outpatient (CLI) | payer OTHER ==
[~2017-08-17] MED LIST changes: +IOPAMIDOL (ISOVUE 370) 100 ML BTL IV ONE; -IOPAMIDOL (ISOVUE-300) 100 ML BTL ONE
== END ==
LOC: FIMAGING 15:37
PROVIDERS: ATTEND Psychiatry & Neurology Neurology
DX: I65.22 Occlusion and stenosis of left carotid artery (principal); M50.30 Other cervical disc degeneration, unspecified cervical region; R91.8 Other nonspecific abnormal finding of lung field; I63.9 Cerebral infarction, unspecified; Z86.711 Personal history of pulmonary embolism
CPT/HCPCS: 70498; Q9967

== ENCOUNTER → 2017-09-03 | Outpatient (CLI) | payer OTHER | LOC: BHFA 10:00 | PROVIDERS: ATTEND Internal Medicine Cardiovascular Disease | DX: I63.9 Cerebral infarction, unspecified (principal) ==